=== PATIENT | male | born 1935 | race Caucasian/White ===

== ENCOUNTER 2016-11-30 18:54 | Inpatient (IN) | payer MEDICARE ==
[2016-11-30 18:54] VITALS: BMI 19.6
[2016-11-30] MEDS ORDERED: Sodium Chloride 0.9% 500 ML IV STA (19:06)
[2016-11-30 20:01] LABS: BASO % 0.5 % (0.0-2.0); EOS # 0.4 K/uL (0.0-0.7); EOS % 5.9 % (0.0-4.0); HEMATOCRIT 32.1 % (35.0-51.0); LYMPH # 0.7 K/uL (1.0-4.3); LYMPH % 8.7 % (20.0-40.0); MEAN CELL VOLUME 81.8 fl (80.0-94.0); MEAN CORPUSCULAR HEMOGLOBIN 26.2 pg (27.0-31.0); MEAN PLATELET VOLUME 8.2 fl (7.2-11.7); MONO % 13.2 % (0.0-10.0); NEUT # 5.4 K/uL (1.8-7.0); NEUT % 71.7 % (50.0-75.0); PLATELET COUNT 259 K/uL (130-400); RED CELL DISTRIBUTION WIDTH 17.1 % (11.5-14.5); WHITE BLOOD COUNT 7.5 K/uL (4.8-10.8)
[2016-11-30 20:13] LABS: ALB/GLOB RATIO 1.1 (1.0-2.1); ALKALINE PHOSPHATASE 875 U/L (38-126); ALT/SGPT 243 U/L (21-72); AST/SGOT 371 U/L (17-59); BILIRUBIN,TOTAL 0.9 mg/dl (0.2-1.3); BLOOD UREA NITROGEN 14 mg/dl (9-20); CALCIUM 8.8 mg/dL (8.4-10.2); CARBON DIOXIDE 28 mmol/L (22-30); CHLORIDE 97 mmol/L (98-107); GFR AFRICAN-AMERICAN > 60; GLUCOSE,RANDOM 199 mg/dL (75-110); MAGNESIUM 1.2 MG/DL (1.6-2.3); PHOSPHOROUS 2.8 mg/dl (2.5-4.5); POTASSIUM 4.4 MMOL/L (3.6-5.0); SODIUM 138 mmol/l (132-148); TOTAL PROTEIN 6.9 G/DL (6.3-8.2)
[2016-11-30 20:26] LABS: EOSINOPHIL 3 % (0-7); NEUTROPHIL 78 % (42-75); TOTAL CELLS COUNTED 100
[2016-11-30 20:40] LABS: PARTIAL THROMBOPLASTIN TIME 33.6 SECONDS (23.3-32.5)
--- NOTE | 2016-11-30 20:59 | ED PDOC ---
HPI: Seizure Time Seen by Provider: 11/30/16 19:04 Chief Complaint (Nursing): Weakness/Neurological Deficit Chief Complaint (Provider): Seizure History Per: Patient, Family History/Exam Limitations: no limitations Recent Seizure Activity Began: Just Before Arrival Number Of Seizures: One Length Of Seizures (Duration): Minutes (x2) Quality Of Seizure: Generalized Associated Symptoms: Incontinence Of Urine Post-ictal Period: No Additional Complaint(s): Rosa Finley is an 81 year old male, with a past medical history inclusive of HTN, atrial fibrillation, COPD, type II diabetes and hypothyroidism , who presents to the ED on 11/30/16, via EMS and accompanied by family members , for evaluation s/p apparent generalized seizure that he had experienced just prior to arrival. Per family, patient had been about to eat when he passed out and experienced an episode of diffuse bodily shaking lasting for approximately 2 minutes with (+) urinary incontinence. Patient subsequently woke feeling very weak but was not postictal, after which he was brought to the ED for further evaluation. Denies headache, chest pain or focal neurological weakness. Patient has reportedly been experiencing both subjective fever and nonproductive cough x2 days as well as some pain within his right buttock that radiates down into his right leg. Though he denies rhinorrhea, throat pain, vomiting, diarrhea or outright back pain, he does admit to having been in bed all day today secondary to feelings of overall generalized weakness. Per family , patient had returned 3 days ago via plane from [facility] where he had attended a wedding. PMD: Rene Rodriguez Citrus Fruit Packer: Demetrio Rios Past Medical History Reviewed: Historical Data, Nursing Documentation, Vital Signs Vital Signs: Last Vital Signs Temp 98.1 F 12/04/16 12:26 Pulse 72 12/04/16 12:26 Resp 18 12/04/16 12:26 BP 131/63 12/04/16 12:26 Pulse Ox 100 12/04/16 12:26 - Medical History PMH: Atrial Fibrillation, COPD, Diabetes (type II), HTN, Hypothyroidism, Malignancy Denies: HIV, Chronic Kidney Disease - Surgical History Surgical History: No Surg Hx - Family History Family History: States: Diabetes - Social History Current smoker - smoking cessation education provided: No Alcohol: None Drugs: Denies - Home Medications Home Medications: Ambulatory Orders Medication Instructions Recorded Aspirin [Aspirin Chewable] 81 mg PO DAILY #30 chew 08/12/16 Esomeprazole Magnesium [Nexium] 40 mg PO DAILY #0 capsule.dr 08/12/16 Glipizide [Glipizide ER] 10 mg PO BID #0 tab.er.24 08/12/16 Levothyroxine [Synthroid] 100 mcg PO DAILY #0 tab 08/12/16 Metoprolol Tartrate [Lopressor] 12.5 mg PO Q12 #30 tab 08/12/16 Pregabalin [Lyrica] 100 mg PO TID #0 cap 08/12/16 Metformin HCl [Glucophage] 1 tab PO TID 12/01/16 Repaglinide [Prandin] 1 tab PO BID 12/01/16 - Allergies Allergies/Adverse Reactions: Allergies Allergy/AdvReac Type Severity Reaction Status Date / Time No Known Allergies Allergy Verified 11/30/16 19:00 Review of Systems ROS Statement: Except As Marked, All Systems Reviewed And Found Negative Constitutional: Positive for: Fever, Weakness (generalized) ENT: Negative for: Nose Discharge, Throat Pain Cardiovascular: Negative for: Chest Pain Respiratory: Positive for: Cough. Negative for: Sputum Gastrointestinal: Negative for: Vomiting, Diarrhea Genitourinary Male: Positive for: Incontinence (urinary) Musculoskeletal: Positive for: Other (pain in right buttock w/radiation down right leg). Negative for: Back Pain Neurological: Positive for: Seizures (x2 min of generalized shaking). Negative for: Weakness (no focal deficits), Headache Physical Exam - Reviewed Nursing Documentation Reviewed: Yes Vital Signs Reviewed: Yes - Physical Exam Appears: Positive for: Non-toxic, No Acute Distress (tired appearing) Head Exam: Positive for: ATRAUMATIC, NORMOCEPHALIC Skin: Positive for: Warm (febrile in ED), Dry, Pallor Eye Exam: Positive for: Normal appearance, EOMI, PERRL ENT: Positive for: Other (dry mucous membranes). Negative for: Pharyngeal Erythema, Tonsillar Exudate, Tonsillar Swelling Neck: Positive for: Normal, Painless ROM (no meningismus), Supple Cardiovascular/Chest: Positive for: Regular Rate, Rhythm. Negative for: Murmur Respiratory: Positive for: Rhonchi (occasional, scattered b/l but good air movement). Negative for: Rales, Respiratory Distress Gastrointestinal/Abdominal: Positive for: Normal Exam, Soft. Negative for: Tenderness Back: Positive for: Normal Inspection. Negative for: Vertebral Tenderness Extremity: Positive for: Normal ROM (FROM of right leg), Tenderness (mild, right buttock). Negative for: Deformity, Other ((-) straight leg raise) Neurologic/Psych: Positive for: Alert, aeronautical inspector II-XII (intact), Oriented, Cerebellar Tests (intact). Negative for: Motor/Sensory Deficits, Aphasia, Facial Droop - Laboratory Results Result Diagrams: 12/04/16 12:34 12/04/16 12:34 - ECG O2 Sat by Pulse Oximetry: 99 (RA) Pulse Ox Interpretation: Normal Medical Decision Making Medical Decision Makin:04 Initial Impression: febrile illness, seizure w/o focal deficit Initial Plan: * EKG * CT Head w/o contrast * CXR * ABG * Labs * Magnesium * Phosphorus * Procalcitonin Serum * Troponin I * PTT * PT * Urinalysis * Influenza A B * Blood Culture * Urine Culture * IV NS 500ml at 500mls/hr * Tylenol 975mg PO * Reevaluation 20:26 Labs reviewed, notable for elevated transaminases. Patient is also (+) for Influenza A. Will order US abdomen as well as administration of Tamiflu 75mg PO. 20:54 Patient will be admitted to Telemetry as a full inpatient under the service of his PMD Dr. Rodriguez for both seizure and elevated transaminases. Will contact Family Practice residents. Plan has been discussed with both patient and family who are in agreement. Condition fair. Scribe Attestation: Documented by Bianka Martin, acting as a scribe for Anyi Sandoval MD. Provider Scribe Attestation: All medical record entries made by the Scribe were at my direction and personally dictated by me. I have reviewed the chart and agree that the record accurately reflects my personal performance of the history, physical exam, medical decision making, and the department course for this patient. I have also personally directed, reviewed, and agree with the discharge instructions and disposition. Disposition - Clinical Impression Clinical Impression: Influenza A, Weakness generalized Discussed With Dr.: Bo Cummins Doctor Will See Patient In The: ED Counseled Patient/Family Regarding: Studies Performed, Diagnosis - Disposition Disposition Time: 19:30 Condition: GUARDED - Pt Status Changed To: Hospital Disposition Of: Inpatient - Admit Certification Admit to Inpatient:: After my assessment, the patient will require hospitalization for at least two midnights. This is because of the severity of symptoms shown, intensity of services needed, and/or the medical risk in this patient being treated as an outpatient. - POA Present On Arrival: Falls Or Trauma, Poor Glycemic Control (possible hypoglycemia)
--- NOTE | 2016-11-30 22:03 | CP.PCM.HP ---
History of Present Illness - History of Present Illness History of Present Illness: 81 yo M w/ PMHx of HTN, A fib, COPD, DM II, hypothyroidism, presented to ED via EMS and accompanied by family members, for evaluation of possible generalized seizure that occurred ROPING TENDER. Per family, patient was about to eat when he passed out and experienced an episode of diffuse body shaking lasting for approximately 2 minutes with urinary incontinence. Patient then woke feeling very weak but was not postictal. Patient states he believes it was due to sugar being low and that it was low at home. Patient states he has had multiple episodes like this one in the past and admitted for the same. Denies headache, chest pain or focal neurological weakness. On ROS, patient has been with subjective fever and nonproductive cough x2 days as well as some pain within his right buttock that radiates down into his right leg. Denies nasal congestion , rhinorrhea, sore throat, nausea, vomiting, diarrhea, abdominal pain, changes in urinary/bowel habits. Of note, patient had returned 3 days ago via plane from [place] where he had attended a wedding. PMD: Bradley Cardio: Ike Medications: As per chart Allergies: NKDA SHx: L/S fusion FHx: Non-contributory Social hx: denies smoking, EtOH, drugs ED Course: Vitals notable for tachycardia and febrile Influenza A positive, markedly elevated transaminases CT head, Abdominal US ordered Tamiflu x 1, Tylenol x 1, 500cc Bolus Present on Admission - Present on Admission Any Indicators Present on Admission: No Review of Systems - Review of Systems All systems: reviewed and no additional remarkable complaints except (mentioned in HPI) Past Patient History - Infectious Disease Hx of Infectious Diseases: None - Past Medical History & Family History Past Medical History?: Yes - Past Social History Alcohol: None Drugs: Denies - CARDIAC Hx Atrial Fibrillation: Yes Hx Hypertension: Yes - PULMONARY Hx Chronic Obstructive Pulmonary Disease (COPD): Yes - NEUROLOGICAL Hx Neurological Disorder: No - HEENT Hx HEENT Problems: No - RENAL Hx Chronic Kidney Disease: No - ENDOCRINE/METABOLIC Hx Hypothyroidism: Yes - HEMATOLOGICAL/ONCOLOGICAL Hx Human Immunodeficiency Virus (HIV): No - INTEGUMENTARY Hx Dermatological Problems: No - MUSCULOSKELETAL/RHEUMATOLOGICAL Hx Musculoskeletal Disorders: No - GASTROINTESTINAL Hx Gastrointestinal Disorders: No - GENITOURINARY/GYNECOLOGICAL Hx Genitourinary Disorders: No - PSYCHIATRIC Hx Psychophysiologic Disorder: No Hx Substance Use: No - SURGICAL HISTORY Hx Surgeries: Yes - ANESTHESIA Hx Anesthesia: Yes Hx Anesthesia Reactions: No Meds Allergies/Adverse Reactions: Allergies Allergy/AdvReac Type Severity Reaction Status Date / Time No Known Allergies Allergy Verified 11/30/16 19:00 Physical Exam - Constitutional Appears: Well, Non-toxic, No Acute Distress - Head Exam Head Exam: ATRAUMATIC, NORMAL INSPECTION, NORMOCEPHALIC - Eye Exam Eye Exam: EOMI, Normal appearance - ENT Exam ENT Exam: Mucous Membranes Dry - Neck Exam Neck exam: Positive for: Normal Inspection - Respiratory Exam Respiratory Exam: Clear to Auscultation Bilateral, NORMAL BREATHING PATTERN. absent: Decreased Breath Sounds, Rhonchi, Wheezes - Cardiovascular Exam Cardiovascular Exam: REGULAR RHYTHM, RRR, +S1, +S2 - GI/Abdominal Exam GI & Abdominal Exam: Normal Bowel Sounds, Soft. absent: Distended, Firm, Guarding, Mass, Organomegaly, Rebound, Tenderness Additional comments: ELIZONDO'S SIGN NEGATIVE - Extremities Exam Extremities exam: Positive for: full ROM, normal inspection Additional comments: mild tenderness of right buttock - Back Exam Back exam: NORMAL INSPECTION - Neurological Exam Neurological exam: Alert, Oriented x3 - Psychiatric Exam Psychiatric exam: Normal Affect, Normal Mood - Skin Skin Exam: Dry, Intact, Normal Color Results - Vital Signs Recent Vital Signs: Last Vital Signs Temp 98.1 F 11/30/16 20:40 Pulse 86 11/30/16 20:40 Resp 16 11/30/16 20:40 BP 125/78 11/30/16 20:40 Pulse Ox 99 11/30/16 21:34 - Labs Result Diagrams: 11/30/16 19:52 11/30/16 19:52 Assessment & Plan (1) Influenza A Status: Acute (2) Elevated transaminase level Status: Acute (3) Weakness generalized Status: Acute (4) Atrial fibrillation Status: Chronic (5) Diabetes mellitus Status: Chronic (6) Hypertension Status: Chronic (7) Hypothyroid Status: Chronic (8) DVT prophylaxis Status: Acute - Assessment and Plan (Free Text) Assessment: 81 yo M w/ PMHx of HTN, A fib, COPD, DM II, hypothyroidism with syncope vs seizure. Plan: (1) Influenza A - Tested positive, Sepsis criteria met with tachycardia, febrile, and source of infection - Tamiflu 75mg PO BID - IVF @ 100cc/hr - Tylenol PRN fever - Continue to monitor vitals - f/u official CXR read and procalcitonin level (2) Elevated transaminase level - Markedly elevated AST/ALT/Alk Phos - Though patient completely asymptomatic from abdominal pain, nausea, vomiting at this time - Prelim report of US abdomen * Bilateral hydronephrosis. Right sided ureteral stent * Echogenic lesion/structure in the left renal sinus which may be further evaluated with dedicated dynamic contrast-enhanced CT of the abdomen and pelvis. * Gallstones * Biliary ductal dilatation as described. No definite choledocholithiasis - Consider Surgery consult if patient develops symptoms of cholecystitis - Consider obtaining CT w/ contrast of abd/pelvis to further evaluate left renal sinus if symptoms arise, or as outpatient - follow up labs in AM (3) Weakness generalized - Unknown etiology of syncope vs seizure - Patient states glucose was low at home, possibly due to hypoglycemia vs dehydration from influenza - CT Head unremarkable - Consider neurology consult (4) Atrial fibrillation - NSR at this time. (5) Diabetes mellitus - Appears to be stable at this time, no evidence of hyper/hypoglycemia during visit though past charts do show episodes of hypoglycemia - Continue current meds at this time - Accucheck ACHS - Continue to monitor closely, if uncontrolled consider endocrinology consult (6) Hypertension - Controlled stable - Continue home meds (7) Hypothyroid - Continue home meds (8) DVT prophylaxis - Lovenox 40mg SC daily
[2016-12-01] MEDS: Sodium Chloride 0.9% 1,000 ML IV SCH ×3 (02:43→16:25)
[2016-12-01 04:49] LABS: RBC URINE 4 /hpf (0-3); URINE BILIRUBIN NEGATIVE (NEGATIVE); URINE BLOOD NEGATIVE (NEGATIVE); URINE COLOR STRAW (YELLOW); URINE GLUCOSE (UA) NEG (Normal); URINE KETONE NEGATIVE (NEGATIVE); URINE LEUKOCYTE ESTERASE NEG Leu/uL (Negative); URINE PROTEIN NEGATIVE (NEGATIVE); URINE UROBILINOGEN 0.2-1.0 mg/dL (0.2-1.0); WBC URINE < 1 /hpf (0-5)
[2016-12-01 07:41] LABS: ALB/GLOB RATIO 1.1 (1.0-2.1); ALKALINE PHOSPHATASE 819 U/L (38-126); ALT/SGPT 258 U/L (21-72); AST/SGOT 282 U/L (17-59); BILIRUBIN,TOTAL 0.6 mg/dl (0.2-1.3); BLOOD UREA NITROGEN 11 mg/dl (9-20); CALCIUM 8.8 mg/dL (8.4-10.2); CARBON DIOXIDE 29 mmol/L (22-30); CHLORIDE 104 mmol/L (98-107); GFR AFRICAN-AMERICAN > 60; GLUCOSE,RANDOM 150 mg/dL (75-110); POTASSIUM 4.6 MMOL/L (3.6-5.0); SODIUM 146 mmol/l (132-148); TOTAL PROTEIN 6.8 G/DL (6.3-8.2)
[2016-12-01 07:42] LABS: LIPASE 2920 U/L (23-300)
--- NOTE | 2016-12-01 08:15 | CT ---
PROCEDURE: CT HEAD WITHOUT CONTRAST. HISTORY: DIZZINESS HEADACHE COMPARISON: None available. TECHNIQUE: Axial computed tomography images were obtained through the head/brain without intravenous contrast. Radiation dose: Total exam DLP = mGy-cm. FINDINGS: HEMORRHAGE: No intracranial hemorrhage. BRAIN: No mass effect or edema. No atrophy or chronic microvascular ischemic changes. VENTRICLES: Unremarkable. No hydrocephalus. CALVARIUM: Unremarkable. PARANASAL SINUSES: Unremarkable as visualized. No significant inflammatory changes. MASTOID AIR CELLS: Unremarkable as visualized. No inflammatory changes. OTHER FINDINGS: None. IMPRESSION: Normal CT of the Head.
[2016-12-01 08:35] LABS: BASO % 0.5 % (0.0-2.0); EOS # 0.3 K/uL (0.0-0.7); EOS % 3.9 % (0.0-4.0); LYMPH # 2.2 K/uL (1.0-4.3); LYMPH % 28.7 % (20.0-40.0); MEAN CELL VOLUME 82.1 fl (80.0-94.0); MEAN CORPUSCULAR HEMOGLOBIN 26.3 pg (27.0-31.0); MEAN CORPUSCULAR HGB CONC 32.1 g/dL (33.0-37.0); MEAN PLATELET VOLUME 8.3 fl (7.2-11.7); MONO # 0.7 K/uL (0.0-0.8); MONO % 9.3 % (0.0-10.0); NEUT # 4.4 K/uL (1.8-7.0); NEUT % 57.6 % (50.0-75.0); RED CELL DISTRIBUTION WIDTH 17.2 % (11.5-14.5); WHITE BLOOD COUNT 7.6 K/uL (4.8-10.8)
--- NOTE | 2016-12-01 09:23 | CP.PCM.PN ---
<Jeannie Morales - Last Filed: 12/01/16 19:12> Subjective - Date & Time of Evaluation Date of Evaluation: 12/01/16 Time of Evaluation: 07:00 - Subjective Subjective: - PAtient seen at bedside resting comfortably . Curently he is feeling better and tolerating PO intake. Denies any chest pain, SOB N/V/D Objective - Vital Signs/Intake and Output Vital Signs (last 24 hours): Temp Pulse Resp BP Pulse Ox 98.4 F 64 16 135/82 96 12/01/16 08:06 12/01/16 08:06 12/01/16 08:06 12/01/16 08:06 12/01/16 08:06 - Medications Medications: Current Medications Aspirin (Aspirin Chewable) 81 mg PO DAILY [facility] Enoxaparin Sodium (Lovenox) 40 mg SC DAILY [facility] PRN Reason: Protocol Glipizide (Glucotrol Xl) 10 mg PO BID [facility] Sodium Chloride (Sodium Chloride 0.9%) 1,000 mls @ 100 mls/hr IV .Q10H [facility] Last Admin: 12/01/16 02:43 Dose: 100 mls/hr Levothyroxine Sodium (Synthroid) 100 mcg PO DAILY@0630 [facility] Metoprolol Tartrate (Lopressor) 12.5 mg PO Q12 [facility] Oseltamivir Phosphate (Tamiflu Cap) 75 mg PO BID [facility] Stop: 12/06/16 09:01 Pantoprazole Sodium (Protonix Ec Tab) 40 mg PO DAILY [facility] Pregabalin (Lyrica) 100 mg PO TID [facility] - Labs Labs: 12/01/16 07:00 12/01/16 06:58 PT 11.5 SECONDS (9.6-11.2) H 11/30/16 19:52 INR 1.11 (0.92-1.08) H 11/30/16 19:52 APTT 33.6 SECONDS (23.3-32.5) H 11/30/16 19:52 - Constitutional Appears: No Acute Distress - Head Exam Head Exam: NORMAL INSPECTION - Eye Exam Eye Exam: Normal appearance - Cardiovascular Exam Cardiovascular Exam: REGULAR RHYTHM, +S1, +S2 - GI/Abdominal Exam GI & Abdominal Exam: Soft, Normal Bowel Sounds. absent: Tenderness Additional comments: murpheys sign negative - Neurological Exam Neurological Exam: Alert, Awake, CN II-XII Intact, Oriented x3 Assessment and Plan - Assessment and Plan (Free Text) Assessment: 81 yo M w/ PMHx of HTN, A fib, COPD, DM II, hypothyroidism with syncope vs seizure. Plan: (1) Influenza A - Tested positive, Sepsis criteria met with tachycardia, febrile, and source of infection - Tamiflu 75mg PO BID - IVF @ 100cc/hr - Tylenol PRN fever - Continue to monitor vitals - Infectious Disease consulted - Procalcitonin wnl - Cxr:WNL (2) Elevated transaminase level - Markedly elevated AST/ALT/Alk Phos - Though patient completely asymptomatic from abdominal pain, nausea, vomiting at this time - Prelim report of US abdomen * Bilateral hydronephrosis. Right sided ureteral stent * Echogenic lesion/structure in the left renal sinus which may be further evaluated with dedicated dynamic contrast-enhanced CT of the abdomen and pelvis. * Gallstones * Biliary ductal dilatation as described. No definite choledocholithiasis - Consider obtaining CT w/ contrast of abd/pelvis to further evaluate left renal sinus if symptoms arise, or as outpatient - GI consult appreciated - Surgery consult appreciated - Lipase: 2920 - Hepatitis panal negative - MRCP: Mildly distended gallbladder contains multiple gallstones and demonstrates diffuse wall thickening.Mild to moderate hydronephrosis. - follow up labs in AM (3) Weakness generalized - Unknown etiology of syncope vs seizure - Patient states glucose was low at home, possibly due to hypoglycemia vs dehydration from influenza - CT Head unremarkable - Neurology consult appreciated (4) Atrial fibrillation - NSR at this time. (5) Diabetes mellitus - Appears to be stable at this time, no evidence of hyper/hypoglycemia during visit though past charts do show episodes of hypoglycemia - Continue current meds at this time - Accucheck ACHS - Continue to monitor closely, if uncontrolled consider endocrinology consult (6) Hypertension - Controlled stable - Continue home meds (7) Hypothyroid - Continue home meds (8) DVT prophylaxis - Lovenox 40mg SC daily <Rene Rodriguez - Last Filed: 12/03/16 07:04> Objective - Vital Signs/Intake and Output Vital Signs (last 24 hours): Temp Pulse Resp BP Pulse Ox 98.1 F 71 19 125/55 L 96 12/03/16 04:52 12/03/16 04:52 12/03/16 04:52 12/03/16 04:52 12/03/16 04:52 - Medications Medications: Current Medications Aspirin (Aspirin Chewable) 81 mg PO DAILY [facility] Last Admin: 12/02/16 10:41 Dose: 81 mg Enoxaparin Sodium (Lovenox) 40 mg SC DAILY [facility] PRN Reason: Protocol Last Admin: 12/02/16 11:01 Dose: 40 mg Glipizide (Glucotrol Xl) 10 mg PO BID [facility] Last Admin: 12/01/16 17:41 Dose: Not Given Insulin Human Regular (Humulin R) 0 units SC ACCU-CHECK [facility] PRN Reason: Protocol Last Admin: 12/03/16 06:34 Dose: Not Given Levothyroxine Sodium (Synthroid) 100 mcg PO DAILY@0630 [facility] Last Admin: 12/03/16 06:29 Dose: 100 mcg Metoprolol Tartrate (Lopressor) 12.5 mg PO Q12 [facility] Last Admin: 12/02/16 21:49 Dose: 12.5 mg Ondansetron HCl (Zofran Inj) 4 mg IVP Q4 PRN PRN Reason: Nausea/Vomiting Oseltamivir Phosphate (Tamiflu Cap) 75 mg PO BID [facility] Stop: 12/06/16 09:01 Last Admin: 12/02/16 17:51 Dose: 75 mg Pantoprazole Sodium (Protonix Ec Tab) 40 mg PO DAILY [facility] Last Admin: 12/02/16 10:41 Dose: 40 mg Pregabalin (Lyrica) 100 mg PO TID [facility] Last Admin: 12/02/16 17:56 Dose: 100 mg Promethazine HCl/Dextromethorphan (Phenergan Dm Syrup) 5 ml PO Q6 PRN PRN Reason: Cough Last Admin: 12/03/16 06:29 Dose: 5 ml - Labs Labs: 12/02/16 07:00 12/02/16 08:10 PT 11.5 SECONDS (9.6-11.2) H 11/30/16 19:52 INR 1.11 (0.92-1.08) H 11/30/16 19:52 APTT 33.6 SECONDS (23.3-32.5) H 11/30/16 19:52 Attending/Attestation - Attestation I have personally seen and examined this patient.: Yes I have fully participated in the care of the patient.: Yes I have reviewed all pertinent clinical information, including history, physical exam and plan: Yes
--- NOTE | 2016-12-01 09:30 | US ---
HISTORY: elevated transaminases and fever COMPARISON: None. TECHNIQUE: Sonographic evaluation of the abdomen. FINDINGS: LIVER: Measures 10.8 cm. Patent portal vein. Portal venous flow: Hepatopetal. Unremarkeable echogenicity of the liver parenchyma. No mass. No intrahepatic bile duct dilatation. GALLBLADDER: Cholelithiasis. Negative study for gallbladder wall thickening, pericholecystic fluid, sonographic Martinez's sign. COMMON BILE DUCT: Measures 11.0 mm. No stones. No dilatation. PANCREAS: Unremarkable as visualized. No mass. No ductal dilatation. RIGHT KIDNEY: Measures 3.6 x 7.4cm. Renal cortical atrophy identified. Incomplete visualization of stent catheter right collecting system. LEFT KIDNEY: Measures 4.6 x 9.4cm. Normal echogenicity. No calculus, mass, or hydronephrosis. SPLEEN: Normal in size and contour. No mass. AORTA: No aneurysmal dilatation. IVC: Unremarkable. OTHER FINDINGS: None. IMPRESSION: Cholelithiasis. Negative study for gallbladder wall thickening, pericholecystic fluid, sonographic Martinez's sign. Additional benign and/or incidental findings described above.
--- NOTE | 2016-12-01 09:49 | CP.PCM.PN ---
Objective - Vital Signs/Intake and Output Vital Signs (last 24 hours): Temp Pulse Resp BP Pulse Ox 98.4 F 64 16 135/82 96 12/01/16 08:06 12/01/16 08:06 12/01/16 08:06 12/01/16 08:06 12/01/16 08:06 - Medications Medications: Current Medications Aspirin (Aspirin Chewable) 81 mg PO DAILY [facility] Enoxaparin Sodium (Lovenox) 40 mg SC DAILY [facility] PRN Reason: Protocol Glipizide (Glucotrol Xl) 10 mg PO BID [facility] Sodium Chloride (Sodium Chloride 0.9%) 1,000 mls @ 100 mls/hr IV .Q10H [facility] Last Admin: 12/01/16 02:43 Dose: 100 mls/hr Levothyroxine Sodium (Synthroid) 100 mcg PO DAILY@0630 [facility] Metoprolol Tartrate (Lopressor) 12.5 mg PO Q12 [facility] Ondansetron HCl (Zofran Inj) 4 mg IVP Q4 PRN PRN Reason: Nausea/Vomiting Oseltamivir Phosphate (Tamiflu Cap) 75 mg PO BID [facility] Stop: 12/06/16 09:01 Pantoprazole Sodium (Protonix Ec Tab) 40 mg PO DAILY [facility] Pregabalin (Lyrica) 100 mg PO TID [facility] - Labs Labs: 12/01/16 07:00 12/01/16 06:58 PT 11.5 SECONDS (9.6-11.2) H 11/30/16 19:52 INR 1.11 (0.92-1.08) H 11/30/16 19:52 APTT 33.6 SECONDS (23.3-32.5) H 11/30/16 19:52
--- NOTE | 2016-12-01 09:49 | CP.PCM.CON ---
History of Present Illness - History of Present Illness History of Present Illness: GENERAL SURGERY CONSULT NOTE FOR DR. GONZALES 81yo M with PMHx of A fib, DM, carcinoid cancer s/p radiation who presented to the ED for evaluation of possible generalized seizure. Patient passed out and had diffuse body shaking for about 2 minutes with urinary incontinence. He was not postictal when he awoke. Patient believes it was due to low blood sugar. Patient has had similar episodes in the past and been worked up at [place]. In the ED, he was found to have elevated LFTs, lipase. An ultrasound was done which showed cholelithiasis and a dilated CBD. Surgery was consulted evaluation of etiology. Patient denies abdominal pain. He denies abdominal pain after eating, denies nausea, vomiting, diarrhea, constipation. He states that he had some LUQ abdominal pain a couple months ago that resolved on its own 2 days ago. He never saw a doctor for those symptoms. He had blood work done on and his LFTs and bilirubin were completely normal at that time. Patient also reports pain to his right ankle, right shoulder, and right buttock area. He sees a pain management doctor for his chronic back pain. He denies SOB or CP. PMHx: HTN, A fib, COPD, DM, hypothyroidism, s/p radiation for carcinoid Surgeries: cataracts, laminectomy, L5/S1 fusion, stent in right kidney Allergies: none Social history: denies etoh, tobacco, or illicit drug use Review of Systems - Review of Systems All systems: reviewed and no additional remarkable complaints except (as per HPI ) Past Patient History - Infectious Disease Hx of Infectious Diseases: None - Past Medical History & Family History Past Medical History?: Yes - Past Social History Alcohol: None Drugs: Denies - CARDIAC Hx Atrial Fibrillation: Yes Hx Hypertension: Yes - PULMONARY Hx Chronic Obstructive Pulmonary Disease (COPD): Yes - NEUROLOGICAL Hx Neurological Disorder: No - HEENT Hx HEENT Problems: No - RENAL Hx Chronic Kidney Disease: No - ENDOCRINE/METABOLIC Hx Hypothyroidism: Yes - HEMATOLOGICAL/ONCOLOGICAL Hx Human Immunodeficiency Virus (HIV): No - INTEGUMENTARY Hx Dermatological Problems: No - MUSCULOSKELETAL/RHEUMATOLOGICAL Hx Musculoskeletal Disorders: No - GASTROINTESTINAL Hx Gastrointestinal Disorders: No - GENITOURINARY/GYNECOLOGICAL Hx Genitourinary Disorders: No - PSYCHIATRIC Hx Psychophysiologic Disorder: No Hx Substance Use: No - SURGICAL HISTORY Hx Surgeries: Yes - ANESTHESIA Hx Anesthesia: Yes Hx Anesthesia Reactions: No Meds Allergies/Adverse Reactions: Allergies Allergy/AdvReac Type Severity Reaction Status Date / Time No Known Allergies Allergy Verified 11/30/16 19:00 - Medications Medications: Current Medications Aspirin (Aspirin Chewable) 81 mg PO DAILY [facility] Enoxaparin Sodium (Lovenox) 40 mg SC DAILY [facility] PRN Reason: Protocol Glipizide (Glucotrol Xl) 10 mg PO BID [facility] Sodium Chloride (Sodium Chloride 0.9%) 1,000 mls @ 100 mls/hr IV .Q10H [facility] Last Admin: 12/01/16 02:43 Dose: 100 mls/hr Levothyroxine Sodium (Synthroid) 100 mcg PO DAILY@0630 [facility] Metoprolol Tartrate (Lopressor) 12.5 mg PO Q12 [facility] Ondansetron HCl (Zofran Inj) 4 mg IVP Q4 PRN PRN Reason: Nausea/Vomiting Oseltamivir Phosphate (Tamiflu Cap) 75 mg PO BID [facility] Stop: 12/06/16 09:01 Pantoprazole Sodium (Protonix Ec Tab) 40 mg PO DAILY [facility] Pregabalin (Lyrica) 100 mg PO TID [facility] Physical Exam - Constitutional Appears: Well, Non-toxic, No Acute Distress - Head Exam Head Exam: ATRAUMATIC, NORMAL INSPECTION - Eye Exam Eye Exam: EOMI, Normal appearance - Respiratory Exam Respiratory Exam: NORMAL BREATHING PATTERN. absent: Respiratory Distress - Cardiovascular Exam Cardiovascular Exam: +S1, +S2 - GI/Abdominal Exam GI & Abdominal Exam: Soft. absent: Distended, Firm, Guarding, Rebound, Rigid, Tenderness Additional comments: Negative murphys sign - Extremities Exam Extremities exam: Positive for: normal inspection. Negative for: calf tenderness - Neurological Exam Neurological exam: Alert, CN II-XII Intact, Oriented x3 - Psychiatric Exam Psychiatric exam: Normal Affect, Normal Mood - Skin Skin Exam: Dry, Normal Color, Warm Results - Vital Signs Recent Vital Signs: Last Vital Signs Temp 98.4 F 12/01/16 08:06 Pulse 64 12/01/16 08:06 Resp 16 12/01/16 08:06 BP 135/82 12/01/16 08:06 Pulse Ox 96 12/01/16 08:06 - Labs Result Diagrams: 12/01/16 07:00 12/01/16 06:58 Labs: Laboratory Results - last 24 hr 12/01/16 12/01/16 12/01/16 02:38 04:26 06:58 WBC RBC Hgb Hct MCV MCH MCHC RDW Plt Count MPV Neut % (Auto) Lymph % (Auto) [place] % (Auto) Eos % (Auto) Baso % (Auto) Neut # Lymph # [place] # Eos # Baso # Sodium 146 Potassium 4.6 Chloride 104 Carbon Dioxide 29 Anion Gap 17 BUN 11 Creatinine 0.7 L Est GFR ( Amer) > 60 Est GFR (Non-Af Amer) > 60 POC Glucose (mg/dL) 208 H Random Glucose 150 H Calcium 8.8 Total Bilirubin 0.6 AST 282 H D ALT 258 H Alkaline Phosphatase 819 H Total Protein 6.8 Albumin 3.5 Globulin 3.3 Albumin/Globulin Ratio 1.1 Lipase 2920 H Urine Color Straw Urine Clarity Clear Urine pH 7.0 Ur Specific [place] 1.005 Urine Protein Negative Urine Glucose (UA) Neg Urine Ketones Negative Urine Blood Negative Urine Nitrate Negative Urine Bilirubin Negative Urine Urobilinogen 0.2-1.0 Ur Leukocyte Esterase Neg Urine RBC (Auto) 4 H Urine Microscopic WBC < 1 12/01/16 07:00 WBC 7.6 RBC 4.02 L Hgb 10.6 L Hct 33.0 L MCV 82.1 MCH 26.3 L MCHC 32.1 L RDW 17.2 H Plt Count 281 MPV 8.3 Neut % (Auto) 57.6 Lymph % (Auto) 28.7 [place] % (Auto) 9.3 Eos % (Auto) 3.9 Baso % (Auto) 0.5 Neut # 4.4 Lymph # 2.2 [place] # 0.7 Eos # 0.3 Baso # 0.0 Sodium Potassium Chloride Carbon Dioxide Anion Gap BUN Creatinine Est GFR ( Amer) Est GFR (Non-Af Amer) POC Glucose (mg/dL) Random Glucose Calcium Total Bilirubin AST ALT Alkaline Phosphatase Total Protein Albumin Globulin Albumin/Globulin Ratio Lipase Urine Color Urine Clarity Urine pH Ur Specific [place] Urine Protein Urine Glucose (UA) Urine Ketones Urine Blood Urine Nitrate Urine Bilirubin Urine Urobilinogen Ur Leukocyte Esterase Urine RBC (Auto) Urine Microscopic WBC Assessment & Plan - Assessment and Plan (Free Text) Assessment: 81yo M with PMHx of A fib, DM, carcinoid cancer s/p radiation who presented with possible generalized seizure and was found to have new onset asymptomatic transaminitis, dilated CBD, elevated lipase, rule out gallstone pancreatitis vs choledocholithiasis, vs pancreatic cancer - Afebrile, VSS - No leukocytosis - Bilirubin WNL - AST 371 on admission, ALT 243 on admission (LFTs were normal in Oct) - Alk phos 875 on admission - Lipase elevated at 2,920 - Influenza + - MRCP ordered - Discussed plan with Dr. Oli Mathis PGY-2
[2016-12-01] MEDS: Levothyroxine 100 MCG TAB PO SCH (10:11)
[2016-12-01] MEDS: GlipiZIDE 10 mg SR Tab PO SCH ×2 (10:12→17:41)
[2016-12-01] MEDS: Pantoprazole 40 mg EC Tab PO SCH (10:14)
[2016-12-01] MEDS: Enoxaparin 40 mg Syringe SC SCH (10:17)
--- NOTE | 2016-12-01 10:24 | RAD ---
HISTORY: Sepsis Patient . Technique: Single view portable semi erect @ 19:35. COMPARISON: 08/10/2016. FINDINGS: LUNGS: No active pulmonary disease. PLEURA: No significant pleural effusion identified, no pneumothorax apparent. CARDIOVASCULAR: No radiographic findings to suggest acute or significant cardiovascular disease. OSSEOUS STRUCTURES: No significant abnormalities. VISUALIZED UPPER ABDOMEN: Normal. OTHER FINDINGS: None. IMPRESSION: No active disease. No significant interval change compared to the prior examination(s).
--- NOTE | 2016-12-01 11:42 | CARD ---
APPROVED REPORT EKG Measurement Heart [id number] <Conclusion> Normal sinus rhythm Nonspecific ST abnormality Abnormal ECG
--- NOTE | 2016-12-01 12:10 | MRI ---
PROCEDURE: Magnetic Resonance Cholangiopancreatography HISTORY: COMPARISON: None available. TECHNIQUE: Multiplanar, multisequence MR images of the abdomen were obtained, including heavily T2 weighted MRCP images of the biliary system. Rotating maximum intensity projection images of the biliary system were generated. FINDINGS: MRCP: The common bile duct is of a normal caliber. No evidence of choledocholithiasis. No intrahepatic biliary ductal dilatation. LIVER: No evidence of acute pathology or suspicious lesions in the liver. GALLBLADDER: Multiple gallstones are seen. There is diffuse gallbladder wall thickening. There is suspicious for trace pericholecystic fluid. The possibility of cholecystitis should be considered. SPLEEN: Unremarkable. PANCREAS: No evidence of acute pathology in the pancreas. The main pancreatic duct is not dilated. ADRENALS: Unremarkable. KIDNEYS: The right kidney is smaller than the left. There is [id number] right hydronephrosis and hydroureter. AORTA: No aneurysm. ASCITES: None. OTHER FINDINGS: None. IMPRESSION: Mildly distended gallbladder contains multiple gallstones and demonstrates diffuse wall thickening. Please correlate clinically for cholecystitis. No evidence of choledocholithiasis. The biliary tree is not dilated. [id number]-[id number] right hydronephrosis. The right kidney is smaller in size than the left. Otherwise no evidence of acute pathology. The study is suboptimal due to patient motion.
--- NOTE | 2016-12-01 12:16 | CP.PCM.CON ---
History of Present Illness - History of Present Illness History of Present Illness: GI Consult: Dr. Warren Pt is an 81M with PMHx of DM, Afib, HTN, hypothyroidism & R kidney cancer s/p radiation who presented to [facility] s/p seizure episode at home. Pt states that he recently returned from a trip to [place] 3 days ago, and has had a cough , fever, and generalized weakness since. In the ER, pt was worked up for his seizure which according to the pt has happened once prior to his episode. He was also found to be Flu + and labs showed elevated AST/ALT & Alk Phos. GI consulted to evaluate. US of the abdomen was obtained and shows GB with gallstones and CBD 11mm. Currently, pt is resting comfortably in bed. He denies any abdominal pain, N/V. States he's feeling better compared to arrival. No other complaints at this time. PMHx: as stated above PSHx: laminectomy, L5/S1 fusion, R kidney stent SocialHx: denies smoking, EtOH, drugs NKDA Review of Systems - Review of Systems All systems: reviewed and no additional remarkable complaints except (as per HPI ) Past Patient History - Infectious Disease Hx of Infectious Diseases: None - Past Medical History & Family History Past Medical History?: Yes - Past Social History Alcohol: None Drugs: Denies - CARDIAC Hx Atrial Fibrillation: Yes Hx Hypertension: Yes - PULMONARY Hx Chronic Obstructive Pulmonary Disease (COPD): Yes - NEUROLOGICAL Hx Neurological Disorder: No - HEENT Hx HEENT Problems: No - RENAL Hx Chronic Kidney Disease: No - ENDOCRINE/METABOLIC Hx Hypothyroidism: Yes - HEMATOLOGICAL/ONCOLOGICAL Hx Human Immunodeficiency Virus (HIV): No - INTEGUMENTARY Hx Dermatological Problems: No - MUSCULOSKELETAL/RHEUMATOLOGICAL Hx Musculoskeletal Disorders: No - GASTROINTESTINAL Hx Gastrointestinal Disorders: No - GENITOURINARY/GYNECOLOGICAL Hx Genitourinary Disorders: No - PSYCHIATRIC Hx Psychophysiologic Disorder: No Hx Substance Use: No - SURGICAL HISTORY Hx Surgeries: Yes - ANESTHESIA Hx Anesthesia: Yes Hx Anesthesia Reactions: No Meds Allergies/Adverse Reactions: Allergies Allergy/AdvReac Type Severity Reaction Status Date / Time No Known Allergies Allergy Verified 11/30/16 19:00 - Medications Medications: Current Medications Aspirin (Aspirin Chewable) 81 mg PO DAILY [facility] Last Admin: 12/01/16 10:12 Dose: 81 mg Enoxaparin Sodium (Lovenox) 40 mg SC DAILY [facility] PRN Reason: Protocol Last Admin: 12/01/16 10:17 Dose: 40 mg Glipizide (Glucotrol Xl) 10 mg PO BID [facility] Last Admin: 12/01/16 10:12 Dose: 10 mg Sodium Chloride (Sodium Chloride 0.9%) 1,000 mls @ 100 mls/hr IV .Q10H [facility] Last Admin: 12/01/16 02:43 Dose: 100 mls/hr Levothyroxine Sodium (Synthroid) 100 mcg PO DAILY@0630 [facility] Last Admin: 12/01/16 10:11 Dose: 100 mcg Metoprolol Tartrate (Lopressor) 12.5 mg PO Q12 [facility] Last Admin: 12/01/16 10:15 Dose: 12.5 mg Ondansetron HCl (Zofran Inj) 4 mg IVP Q4 PRN PRN Reason: Nausea/Vomiting Oseltamivir Phosphate (Tamiflu Cap) 75 mg PO BID [facility] Stop: 12/06/16 09:01 Last Admin: 12/01/16 10:15 Dose: 75 mg Pantoprazole Sodium (Protonix Ec Tab) 40 mg PO DAILY [facility] Last Admin: 12/01/16 10:14 Dose: 40 mg Pregabalin (Lyrica) 100 mg PO TID [facility] Last Admin: 12/01/16 11:55 Dose: 100 mg Physical Exam - Constitutional Appears: Well, No Acute Distress - Eye Exam Eye Exam: Normal appearance - ENT Exam ENT Exam: Mucous Membranes Moist - Respiratory Exam Respiratory Exam: NORMAL BREATHING PATTERN - Cardiovascular Exam Cardiovascular Exam: RRR - GI/Abdominal Exam GI & Abdominal Exam: Soft. absent: Distended, Guarding, Rebound, Tenderness - Extremities Exam Extremities exam: Negative for: tenderness - Neurological Exam Neurological exam: Alert, Oriented x3 - Skin Skin Exam: Dry, Intact Results - Vital Signs Recent Vital Signs: Last Vital Signs Temp 98.4 F 12/01/16 08:06 Pulse 64 12/01/16 08:06 Resp 16 12/01/16 08:06 BP 135/82 12/01/16 08:06 Pulse Ox 96 12/01/16 08:06 - Labs Result Diagrams: 12/01/16 07:00 12/01/16 06:58 Labs: Laboratory Results - last 24 hr 12/01/16 12/01/16 12/01/16 02:38 04:26 06:58 WBC RBC Hgb Hct MCV MCH MCHC RDW Plt Count MPV Neut % (Auto) Lymph % (Auto) [place] % (Auto) Eos % (Auto) Baso % (Auto) Neut # Lymph # [place] # Eos # Baso # Sodium 146 Potassium 4.6 Chloride 104 Carbon Dioxide 29 Anion Gap 17 BUN 11 Creatinine 0.7 L Est GFR ( Amer) > 60 Est GFR (Non-Af Amer) > 60 POC Glucose (mg/dL) 208 H Random Glucose 150 H Calcium 8.8 Total Bilirubin 0.6 AST 282 H D ALT 258 H Alkaline Phosphatase 819 H Total Protein 6.8 Albumin 3.5 Globulin 3.3 Albumin/Globulin Ratio 1.1 Lipase 2920 H Urine Color Straw Urine Clarity Clear Urine pH 7.0 Ur Specific [place] 1.005 Urine Protein Negative Urine Glucose (UA) Neg Urine Ketones Negative Urine Blood Negative Urine Nitrate Negative Urine Bilirubin Negative Urine Urobilinogen 0.2-1.0 Ur Leukocyte Esterase Neg Urine RBC (Auto) 4 H Urine Microscopic WBC < 1 12/01/16 07:00 WBC 7.6 RBC 4.02 L Hgb 10.6 L Hct 33.0 L MCV 82.1 MCH 26.3 L MCHC 32.1 L RDW 17.2 H Plt Count 281 MPV 8.3 Neut % (Auto) 57.6 Lymph % (Auto) 28.7 [place] % (Auto) 9.3 Eos % (Auto) 3.9 Baso % (Auto) 0.5 Neut # 4.4 Lymph # 2.2 [place] # 0.7 Eos # 0.3 Baso # 0.0 Sodium Potassium Chloride Carbon Dioxide Anion Gap BUN Creatinine Est GFR ( Amer) Est GFR (Non-Af Amer) POC Glucose (mg/dL) Random Glucose Calcium Total Bilirubin AST ALT Alkaline Phosphatase Total Protein Albumin Globulin Albumin/Globulin Ratio Lipase Urine Color Urine Clarity Urine pH Ur Specific [place] Urine Protein Urine Glucose (UA) Urine Ketones Urine Blood Urine Nitrate Urine Bilirubin Urine Urobilinogen Ur Leukocyte Esterase Urine RBC (Auto) Urine Microscopic WBC - Imaging and Cardiology US - abdomen Status: Image reviewed by me, Report reviewed by me Assessment & Plan - Assessment and Plan (Free Text) Assessment: 81M with Influenza and likely gallstone pancreatitis Plan: - dilated CBD, elevated LFTs and lipase may all be result of a passed stone in light of negative MRCP - monitor LFTs; will order Hep Panel - monitor lipase - d/w Dr. Briana Aden, PGY-2
[2016-12-01] MEDS: Insulin Regular 100 units/ml SC SCH ×2 (13:10→23:32)
[2016-12-01] MEDS ORDERED: Insulin Regular 100 units/ml ONE (13:12)
--- NOTE | 2016-12-01 13:57 | CON ---
DATE: 12/01/2016 CHIEF COMPLAINT: Syncope. HISTORY OF PRESENTING ILLNESS: An 81-year-old man with past medical history of hypertension, atrial fibrillation, COPD, type 2 diabetes mellitus, hypothyroidism who is coming by family members because of questionable shaking movements while he passed out. Apparently, the patient was about to eat when he passed out and experienced an episode of diffuse body shaking lasting a few seconds to minutes wi th some urinary incontinence. He denies any seizures or any history of trauma in the past. Denies a ny history of meningitis or any febrile seizures. He was not postictal. He says his blood sugars ru n lower in the morning and higher at night. He has been trying to manage his blood sugars as best as he could. He said he has had multiple similar episodes in the past like this. He has been having s ubjective fever, nonproductive cough and generalized weakness. On his labs, his initial blood sugar when he came in was 208. He has elevated AST, ALT and alkaline phosphatase and he is being managed f or influenza as well as new onset asymptomatic transaminitis and dilated gallbladder duct with elevat ed lipase, to rule out any form of pancreas involvement. His CT head showed no acute intracranial ab normalities. Currently, he is moving all extremities with no difficulties. No paresthesias of the e xtremities at this time. PAST MEDICAL HISTORY: History of AFib, hypertension, COPD, type 2 diabetes mellitus, hypothyroidism. CURRENT MEDICATIONS: Reviewed via nurse's reconciliation sheet. REVIEW OF SYSTEM: A 14-point negative except for in the HPI. ALLERGIES: No known drug allergies. FAMILY HISTORY: Noncontributory. SOCIAL HISTORY: No illicit drug use, smoking, or ETOH abuse. PHYSICAL EXAMINATION: VITAL SIGNS: Temperature 98.4, pulse rate 64, blood pressure 135/82, respiratory rate of 16, oxygen saturation 96% via room air. GENERAL: The patient is sitting up in bed, no acute distress. HEENT: Atraumatic, normocephalic. PERRLA. Extraocular muscles intact. NECK: Supple, no JVD, no adenopathy noted. LUNGS: Clear to auscultation. No adventitious sounds. HEART: S1, S2, normal rate and rhythm. No murmurs, rubs, or gallops. ABDOMEN: Soft, nontender, nondistended. Bowel sounds are present. EXTREMITIES: No clubbing, no cyanosis. Peripheral pulses 2+ felt bilaterally. NEUROLOGIC: The patient is alert, oriented to person, place, month and year. Speech is fluent, with out any errors. Cranial nerves II-XII are intact. MOTOR: Moves all extremities equally. No pronator drift seen. SENSORY: Decreased light touch and pinprick up to the calves bilaterally. Decreased vibration of th e toes. DEEP TENDON REFLEXES: 2+ throughout and 1 at the ankles. COORDINATION: Wyhozv-xu-auis intact. GAIT: Deferred for now. LABORATORIES: Sodium 146, potassium 4.6, chloride of 104, carbon dioxide 29, BUN of 11, creatinine 0 .7, random glucose 150. Elevated transaminases and alkaline phosphatase. His MRCP showed mildly dis tended gallbladder that contains multiple gallstones and demonstrated diffuse wall thickening, no maurilio dence of choledocholithiasis. ASSESSMENT AND PLAN: This is an 81-year-old man with history of hypertension, atrial fibrillation, c hronic obstructive pulmonary disease, type 2 diabetes mellitus, hypothyroidism who had a syncopal eunice nt and had some generalized shaking with urinary incontinence. He has history of running low blood s ugars in the morning, according to the patient as well as his at bedside. Likely his syncopal e vent with generalized shaking is likely a syncopal convulsion rather than a seizure-type event. It i s more related possibly likely to a transient hypoglycemic event. He is positive for influenza and o n his magnetic resonance cholangiopancreatography, he has mildly distended gallbladder that contains multiple gallstones and diffuse wall thickening. At this time, recommend: 1. Hydrate the patient. 2. Monitor his electrolytes and correct accordingly and diabetic education given. Adjust his diabet ic medications so he avoids having hypoglycemia events in the morning. 3. Continue with Tamiflu 75 mg p.o. b.i.d. for his underlying positive influenza. 4. Continue with Lyrica 100 mg p.o. t.i.d. for his underlying neuropathic pain. 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 5. Continue with levothyroxine 100 mcg p.o. daily. 6. Follow up his workup for his underlying positive elevated transaminases and alkaline phosphatase and gallstones on his magnetic resonance cholangiopancreatography. 7. At this time, continue with current present medical management, though an EEG can be done as an o utpatient. He can follow up with me in my office. Thank you for this consult. Chris Felix MD cc: [phone] TT: 12/01/2016 13:56:29 Confirmation # [id number] Dictation # [id number]
--- NOTE | 2016-12-01 19:21 | CP.PCM.PN ---
Subjective - Date & Time of Evaluation Date of Evaluation: 12/01/16 Time of Evaluation: 19:19 - Subjective Subjective: ID NOTE PATIENT AT TESTING AGREE C PRESENT MANAGEMEY WILL SEE TOMORROW Objective - Vital Signs/Intake and Output Vital Signs (last 24 hours): Temp Pulse Resp BP Pulse Ox 99.1 F 66 18 147/73 99 12/01/16 14:32 12/01/16 14:32 12/01/16 14:32 12/01/16 14:32 12/01/16 13:58 - Medications Medications: Current Medications Aspirin (Aspirin Chewable) 81 mg PO DAILY [facility] Last Admin: 12/01/16 10:12 Dose: 81 mg Enoxaparin Sodium (Lovenox) 40 mg SC DAILY [facility] PRN Reason: Protocol Last Admin: 12/01/16 10:17 Dose: 40 mg Glipizide (Glucotrol Xl) 10 mg PO BID [facility] Last Admin: 12/01/16 17:41 Dose: Not Given Sodium Chloride (Sodium Chloride 0.9%) 1,000 mls @ 100 mls/hr IV .Q10H [facility] Stop: 12/02/16 18:01 Insulin Human Regular (Humulin R) 0 units SC ACCU-CHECK [facility] PRN Reason: Protocol Last Admin: 12/01/16 13:10 Dose: 4 units Levothyroxine Sodium (Synthroid) 100 mcg PO DAILY@0630 [facility] Last Admin: 12/01/16 10:11 Dose: 100 mcg Metoprolol Tartrate (Lopressor) 12.5 mg PO Q12 [facility] Last Admin: 12/01/16 10:15 Dose: 12.5 mg Ondansetron HCl (Zofran Inj) 4 mg IVP Q4 PRN PRN Reason: Nausea/Vomiting Oseltamivir Phosphate (Tamiflu Cap) 75 mg PO BID [facility] Stop: 12/06/16 09:01 Last Admin: 12/01/16 16:57 Dose: 75 mg Pantoprazole Sodium (Protonix Ec Tab) 40 mg PO DAILY [facility] Last Admin: 12/01/16 10:14 Dose: 40 mg Pregabalin (Lyrica) 100 mg PO TID [facility] Last Admin: 12/01/16 16:58 Dose: 100 mg - Labs Labs: 12/01/16 07:00 12/01/16 06:58 PT 11.5 SECONDS (9.6-11.2) H 11/30/16 19:52 INR 1.11 (0.92-1.08) H 11/30/16 19:52 APTT 33.6 SECONDS (23.3-32.5) H 11/30/16 19:52
[2016-12-02] MEDS: Sodium Chloride 0.9% 1,000 ML IV SCH ×3 (02:15→17:48)
[2016-12-02] MEDS: Levothyroxine 100 MCG TAB PO SCH (06:52)
[2016-12-02] MEDS ORDERED: Insulin Regular 100 units/ml ONE ×2 (07:21→11:58)
[2016-12-02] MEDS: Insulin Regular 100 units/ml SC SCH ×4 (07:28→23:25)
[2016-12-02 08:58] LABS: BASO % 0.5 % (0.0-2.0); EOS # 0.4 K/uL (0.0-0.7); EOS % 4.8 % (0.0-4.0); HEMATOCRIT 31.4 % (35.0-51.0); LYMPH # 1.6 K/uL (1.0-4.3); LYMPH % 21.5 % (20.0-40.0); MEAN CORPUSCULAR HEMOGLOBIN 26.5 pg (27.0-31.0); MEAN CORPUSCULAR HGB CONC 32.7 g/dL (33.0-37.0); MEAN PLATELET VOLUME 8.4 fl (7.2-11.7); MONO # 0.7 K/uL (0.0-0.8); MONO % 9.3 % (0.0-10.0); NEUT # 4.9 K/uL (1.8-7.0); NEUT % 63.9 % (50.0-75.0); NRBC % 0.1 % (0.0-0.0); RED CELL DISTRIBUTION WIDTH 17.2 % (11.5-14.5); WHITE BLOOD COUNT 7.7 K/uL (4.8-10.8)
--- NOTE | 2016-12-02 09:00 | CP.PCM.PN ---
<Farhana Mathis - Last Filed: 12/02/16 10:19> Subjective - Date & Time of Evaluation Date of Evaluation: 12/02/16 Time of Evaluation: 07:00 - Subjective Subjective: GENERAL SURGERY PROGRESS NOTE FOR DR. FOSTER Patient seen and examined with Dr. Foster at bedside in the ED. He is still in the ER due to being Flu + and awaiting isolation room on Tele. He states that he is doing well, denies CP, SOB, Abd pain, nausea or vomiting. He is tolerating regular diet. Objective - Vital Signs/Intake and Output Vital Signs (last 24 hours): Temp Pulse Resp BP Pulse Ox 97.9 F 88 14 121/74 96 12/02/16 06:00 12/02/16 06:00 12/02/16 06:00 12/02/16 06:00 12/02/16 06:00 - Medications Medications: Current Medications Aspirin (Aspirin Chewable) 81 mg PO DAILY [facility] Last Admin: 12/01/16 10:12 Dose: 81 mg Enoxaparin Sodium (Lovenox) 40 mg SC DAILY [facility] PRN Reason: Protocol Last Admin: 12/01/16 10:17 Dose: 40 mg Glipizide (Glucotrol Xl) 10 mg PO BID [facility] Last Admin: 12/01/16 17:41 Dose: Not Given Sodium Chloride (Sodium Chloride 0.9%) 1,000 mls @ 100 mls/hr IV .Q10H [facility] Stop: 12/02/16 18:01 Last Admin: 12/02/16 05:30 Dose: 100 mls/hr Insulin Human Regular (Humulin R) 0 units SC ACCU-CHECK [facility] PRN Reason: Protocol Last Admin: 12/02/16 07:28 Dose: 2 units Levothyroxine Sodium (Synthroid) 100 mcg PO DAILY@0630 [facility] Last Admin: 12/02/16 06:52 Dose: 100 mcg Metoprolol Tartrate (Lopressor) 12.5 mg PO Q12 [facility] Last Admin: 12/01/16 22:05 Dose: Not Given Ondansetron HCl (Zofran Inj) 4 mg IVP Q4 PRN PRN Reason: Nausea/Vomiting Oseltamivir Phosphate (Tamiflu Cap) 75 mg PO BID [facility] Stop: 12/06/16 09:01 Last Admin: 12/01/16 16:57 Dose: 75 mg Pantoprazole Sodium (Protonix Ec Tab) 40 mg PO DAILY [facility] Last Admin: 12/01/16 10:14 Dose: 40 mg Pregabalin (Lyrica) 100 mg PO TID [facility] Last Admin: 12/01/16 16:58 Dose: 100 mg - Labs Labs: 12/01/16 07:00 12/01/16 06:58 PT 11.5 SECONDS (9.6-11.2) H 11/30/16 19:52 INR 1.11 (0.92-1.08) H 11/30/16 19:52 APTT 33.6 SECONDS (23.3-32.5) H 11/30/16 19:52 - Constitutional Appears: Well, Non-toxic, No Acute Distress - Head Exam Head Exam: ATRAUMATIC, NORMAL INSPECTION - Eye Exam Eye Exam: EOMI, Normal appearance - Respiratory Exam Respiratory Exam: NORMAL BREATHING PATTERN. absent: Respiratory Distress - Cardiovascular Exam Cardiovascular Exam: +S1, +S2 - GI/Abdominal Exam GI & Abdominal Exam: Soft. absent: Distended, Firm, Guarding, Rigid, Tenderness , Rebound - Neurological Exam Neurological Exam: Alert, Awake, Oriented x3 - Psychiatric Exam Psychiatric exam: Normal Affect, Normal Mood - Skin Skin Exam: Dry, Normal Color, Warm Assessment and Plan - Assessment and Plan (Free Text) Assessment: 81yo M with PMHx of A fib, DM, carcinoid cancer s/p radiation who presented with possible generalized seizure and was found to have new onset asymptomatic transaminitis, dilated CBD, elevated lipase, rule out gallstone pancreatitis vs choledocholithiasis, vs pancreatic cancer - Influenza + - Afebrile, VSS - No leukocytosis - Bilirubin WNL - Large decrease in LFTs today compared to yesterday - Lipase normal today at 109, compared with yesterday at 2,920 - Hepatitis panel negative - MRCP showed mildly distended gallbladder, many gallstones, diffuse wall thickening, no choledocholithiasis, biliary tree not dilated, liver & pancreas normal - GI follow up - Will continue to monitor LFTs - Discussed plan with Dr. Kristin Mathis PGY-2 <Scotty Foster - Last Filed: 12/02/16 10:24> Subjective - Date & Time of Evaluation Date of Evaluation: 12/02/16 Time of Evaluation: 10:00 - Subjective Subjective: Patient was seen and examined at the bedside. Agree with resident's note above Objective - Vital Signs/Intake and Output Vital Signs (last 24 hours): Temp Pulse Resp BP Pulse Ox 97.9 F 88 14 121/74 96 12/02/16 06:00 12/02/16 06:00 12/02/16 06:00 12/02/16 06:00 12/02/16 06:00 - Medications Medications: Current Medications Aspirin (Aspirin Chewable) 81 mg PO DAILY [facility] Last Admin: 12/01/16 10:12 Dose: 81 mg Enoxaparin Sodium (Lovenox) 40 mg SC DAILY [facility] PRN Reason: Protocol Last Admin: 12/01/16 10:17 Dose: 40 mg Glipizide (Glucotrol Xl) 10 mg PO BID [facility] Last Admin: 12/01/16 17:41 Dose: Not Given Sodium Chloride (Sodium Chloride 0.9%) 1,000 mls @ 100 mls/hr IV .Q10H [facility] Stop: 12/02/16 18:01 Last Admin: 12/02/16 05:30 Dose: 100 mls/hr Insulin Human Regular (Humulin R) 0 units SC ACCU-CHECK [facility] PRN Reason: Protocol Last Admin: 12/02/16 07:28 Dose: 2 units Levothyroxine Sodium (Synthroid) 100 mcg PO DAILY@0630 [facility] Last Admin: 12/02/16 06:52 Dose: 100 mcg Metoprolol Tartrate (Lopressor) 12.5 mg PO Q12 [facility] Last Admin: 12/01/16 22:05 Dose: Not Given Ondansetron HCl (Zofran Inj) 4 mg IVP Q4 PRN PRN Reason: Nausea/Vomiting Oseltamivir Phosphate (Tamiflu Cap) 75 mg PO BID [facility] Stop: 12/06/16 09:01 Last Admin: 12/01/16 16:57 Dose: 75 mg Pantoprazole Sodium (Protonix Ec Tab) 40 mg PO DAILY [facility] Last Admin: 12/01/16 10:14 Dose: 40 mg Pregabalin (Lyrica) 100 mg PO TID [facility] Last Admin: 12/01/16 16:58 Dose: 100 mg - Labs Labs: 12/02/16 07:00 12/02/16 08:10 PT 11.5 SECONDS (9.6-11.2) H 11/30/16 19:52 INR 1.11 (0.92-1.08) H 11/30/16 19:52 APTT 33.6 SECONDS (23.3-32.5) H 11/30/16 19:52
[2016-12-02 09:27] LABS: ALKALINE PHOSPHATASE 607 U/L (38-126); ALT/SGPT 147 U/L (21-72); AMYLASE 96 U/L (30-110); AST/SGOT 70 U/L (17-59); BILIRUBIN,TOTAL 0.6 mg/dl (0.2-1.3); BLOOD UREA NITROGEN 11 mg/dl (9-20); CALCIUM 8.8 mg/dL (8.4-10.2); CARBON DIOXIDE 30 mmol/L (22-30); CHLORIDE 101 mmol/L (98-107); GFR AFRICAN-AMERICAN > 60; GLUCOSE,RANDOM 145 mg/dL (75-110); LIPASE 109 U/L (23-300); POTASSIUM 4.2 MMOL/L (3.6-5.0); SODIUM 143 mmol/l (132-148); TOTAL PROTEIN 6.6 G/DL (6.3-8.2)
[2016-12-02] MEDS ORDERED: Pantoprazole 40 mg EC Tab PO ONE (10:31)
[2016-12-02] MEDS: Pantoprazole 40 mg EC Tab PO SCH (10:41)
[2016-12-02] MEDS: Enoxaparin 40 mg Syringe SC SCH (11:01)
--- NOTE | 2016-12-02 12:12 | CP.PCM.PN ---
<Jeannie Morales - Last Filed: 12/02/16 16:13> Subjective - Date & Time of Evaluation Date of Evaluation: 12/02/16 Time of Evaluation: 11:56 - Subjective Subjective: - Patient is resting in bed comfortably. States he is feeling well. Denies chest pain, SOB, N/V/D. Pt w/ a facemask on awaiting isolation room on tele. Has been tolerating PO intake. Objective - Vital Signs/Intake and Output Vital Signs (last 24 hours): Temp Pulse Resp BP Pulse Ox 98 F 79 16 128/58 L 99 12/02/16 10:30 12/02/16 10:30 12/02/16 10:30 12/02/16 10:30 12/02/16 10:30 - Medications Medications: Current Medications Aspirin (Aspirin Chewable) 81 mg PO DAILY [facility] Last Admin: 12/02/16 10:41 Dose: 81 mg Enoxaparin Sodium (Lovenox) 40 mg SC DAILY [facility] PRN Reason: Protocol Last Admin: 12/02/16 11:01 Dose: 40 mg Glipizide (Glucotrol Xl) 10 mg PO BID [facility] Last Admin: 12/01/16 17:41 Dose: Not Given Sodium Chloride (Sodium Chloride 0.9%) 1,000 mls @ 100 mls/hr IV .Q10H [facility] Stop: 12/02/16 18:01 Last Admin: 12/02/16 05:30 Dose: 100 mls/hr Insulin Human Regular (Humulin R) 0 units SC ACCU-CHECK [facility] PRN Reason: Protocol Last Admin: 12/02/16 07:28 Dose: 2 units Levothyroxine Sodium (Synthroid) 100 mcg PO DAILY@0630 [facility] Last Admin: 12/02/16 06:52 Dose: 100 mcg Metoprolol Tartrate (Lopressor) 12.5 mg PO Q12 [facility] Last Admin: 12/02/16 10:41 Dose: 12.5 mg Ondansetron HCl (Zofran Inj) 4 mg IVP Q4 PRN PRN Reason: Nausea/Vomiting Oseltamivir Phosphate (Tamiflu Cap) 75 mg PO BID [facility] Stop: 12/06/16 09:01 Last Admin: 12/02/16 10:42 Dose: 75 mg Pantoprazole Sodium (Protonix Ec Tab) 40 mg PO DAILY [facility] Last Admin: 12/02/16 10:41 Dose: 40 mg Pregabalin (Lyrica) 100 mg PO TID [facility] Last Admin: 12/02/16 11:01 Dose: 100 mg - Labs Labs: 12/02/16 07:00 12/02/16 08:10 PT 11.5 SECONDS (9.6-11.2) H 11/30/16 19:52 INR 1.11 (0.92-1.08) H 11/30/16 19:52 APTT 33.6 SECONDS (23.3-32.5) H 11/30/16 19:52 - Constitutional Appears: No Acute Distress - Head Exam Head Exam: ATRAUMATIC, NORMAL INSPECTION, NORMOCEPHALIC - Eye Exam Eye Exam: Normal appearance - Respiratory Exam Respiratory Exam: Clear to Ausculation Bilateral, NORMAL BREATHING PATTERN - Cardiovascular Exam Cardiovascular Exam: REGULAR RHYTHM, +S1, +S2 - GI/Abdominal Exam GI & Abdominal Exam: Soft, Normal Bowel Sounds. absent: Tenderness - Extremities Exam Extremities Exam: Normal Inspection. absent: Tenderness - Neurological Exam Neurological Exam: Alert, Awake, CN II-XII Intact, Oriented x3 Assessment and Plan - Assessment and Plan (Free Text) Assessment: Assessment: 81 yo M w/ PMHx of HTN, A fib, COPD, DM II, hypothyroidism with syncope vs seizure. Plan: (1) Influenza A - Afebrile - Tested positive, Sepsis criteria met with tachycardia, febrile, and source of infection - Tamiflu 75mg PO BID - IVF @ 100cc/hr - Tylenol PRN fever - Continue to monitor vitals - Infectious Disease consulted - Procalcitonin wnl - Cxr:WNL (2) Syncope most likely secondary to Flu vs Hypoglycemic episode - CT unremarkable - Dr. Felix on board: Believes it is syncopal event more then convulsive. - F/U with EEG results (3) Elevated transaminase level (improving) - AST/ALT has trended down from 282/258 to 70/147 - Alk Phos trending down from 819 to 607 - Lipase: trended down to wnl - Hepatitis panal negative - Though patient completely asymptomatic from abdominal pain, nausea, vomiting at this time - US abdomen * Cholelithiasis Negative study for gallbladder wall thickening, pericholecystic fluid, sonographic Martinez's sign. - GI consulted - Surgery consult: Do not recommend surgical intervention at this point - MRCP: Mildly distended gallbladder contains multiple gallstones and demonstrates diffuse wall thickening.Mild to moderate hydronephrosis. - follow up labs in AM (3) Weakness generalized - Unknown etiology of syncope vs seizure - Patient states glucose was low at home, possibly due to hypoglycemia vs dehydration from influenza - CT Head unremarkable - Neurology consult appreciated (4) Atrial fibrillation - NSR at this time. (5) Diabetes mellitus - Appears to be stable at this time, no evidence of hyper/hypoglycemia during visit though past charts do show episodes of hypoglycemia - Continue current meds at this time - Accucheck ACHS - Continue to monitor closely (6) Hypertension - Controlled stable - Continue home meds (7) Hypothyroid - Continue home meds (8) DVT prophylaxis - Lovenox 40mg SC daily <Sree Yuen - Last Filed: 12/03/16 07:16> Objective - Vital Signs/Intake and Output Vital Signs (last 24 hours): Temp Pulse Resp BP Pulse Ox 98.1 F 71 19 125/55 L 96 12/03/16 04:52 12/03/16 04:52 12/03/16 04:52 12/03/16 04:52 12/03/16 04:52 - Medications Medications: Current Medications Aspirin (Aspirin Chewable) 81 mg PO DAILY [facility] Last Admin: 12/02/16 10:41 Dose: 81 mg Enoxaparin Sodium (Lovenox) 40 mg SC DAILY [facility] PRN Reason: Protocol Last Admin: 12/02/16 11:01 Dose: 40 mg Glipizide (Glucotrol Xl) 10 mg PO BID [facility] Last Admin: 12/01/16 17:41 Dose: Not Given Insulin Human Regular (Humulin R) 0 units SC ACCU-CHECK [facility] PRN Reason: Protocol Last Admin: 12/03/16 06:34 Dose: Not Given Levothyroxine Sodium (Synthroid) 100 mcg PO DAILY@0630 [facility] Last Admin: 12/03/16 06:29 Dose: 100 mcg Metoprolol Tartrate (Lopressor) 12.5 mg PO Q12 [facility] Last Admin: 12/02/16 21:49 Dose: 12.5 mg Ondansetron HCl (Zofran Inj) 4 mg IVP Q4 PRN PRN Reason: Nausea/Vomiting Oseltamivir Phosphate (Tamiflu Cap) 75 mg PO BID [facility] Stop: 12/06/16 09:01 Last Admin: 12/02/16 17:51 Dose: 75 mg Pantoprazole Sodium (Protonix Ec Tab) 40 mg PO DAILY [facility] Last Admin: 12/02/16 10:41 Dose: 40 mg Pregabalin (Lyrica) 100 mg PO TID [facility] Last Admin: 12/02/16 17:56 Dose: 100 mg Promethazine HCl/Dextromethorphan (Phenergan Dm Syrup) 5 ml PO Q6 PRN PRN Reason: Cough Last Admin: 12/03/16 06:29 Dose: 5 ml - Labs Labs: 12/02/16 07:00 12/02/16 08:10 PT 11.5 SECONDS (9.6-11.2) H 11/30/16 19:52 INR 1.11 (0.92-1.08) H 11/30/16 19:52 APTT 33.6 SECONDS (23.3-32.5) H 11/30/16 19:52 Attending/Attestation - Attestation I have personally seen and examined this patient.: Yes I have fully participated in the care of the patient.: Yes I have reviewed all pertinent clinical information, including history, physical exam and plan: Yes
[2016-12-02] MEDS: Promethazine DM 6.25 mg-15 mg/5 ml Syrup PO PRN (23:25)
[2016-12-03] MEDS: Promethazine DM 6.25 mg-15 mg/5 ml Syrup PO PRN ×2 (06:29→17:22)
[2016-12-03] MEDS: Levothyroxine 100 MCG TAB PO SCH (06:29)
[2016-12-03] MEDS: Insulin Regular 100 units/ml SC SCH ×4 (06:34→23:00)
--- NOTE | 2016-12-03 07:50 | CP.PCM.PN ---
<Farhana Mathis - Last Filed: 12/03/16 10:27> Subjective - Date & Time of Evaluation Date of Evaluation: 12/03/16 Time of Evaluation: 07:00 - Subjective Subjective: GENERAL SURGERY PROGRESS NOTE FOR DR. FOSTER Patient seen and examined with Dr. Foster at bedside on tele. He states that he is doing well, denies CP, SOB, Abd pain. No more dizziness or seizure episodes. He is tolerating regular diet and denies nausea or vomiting. Objective - Vital Signs/Intake and Output Vital Signs (last 24 hours): Temp Pulse Resp BP Pulse Ox 98.1 F 71 19 125/55 L 96 12/03/16 04:52 12/03/16 04:52 12/03/16 04:52 12/03/16 04:52 12/03/16 04:52 - Medications Medications: Current Medications Aspirin (Aspirin Chewable) 81 mg PO DAILY [facility] Last Admin: 12/02/16 10:41 Dose: 81 mg Enoxaparin Sodium (Lovenox) 40 mg SC DAILY [facility] PRN Reason: Protocol Last Admin: 12/02/16 11:01 Dose: 40 mg Glipizide (Glucotrol Xl) 10 mg PO BID [facility] Last Admin: 12/01/16 17:41 Dose: Not Given Insulin Human Regular (Humulin R) 0 units SC ACCU-CHECK [facility] PRN Reason: Protocol Last Admin: 12/03/16 06:34 Dose: Not Given Levothyroxine Sodium (Synthroid) 100 mcg PO DAILY@0630 [facility] Last Admin: 12/03/16 06:29 Dose: 100 mcg Metoprolol Tartrate (Lopressor) 12.5 mg PO Q12 [facility] Last Admin: 12/02/16 21:49 Dose: 12.5 mg Ondansetron HCl (Zofran Inj) 4 mg IVP Q4 PRN PRN Reason: Nausea/Vomiting Oseltamivir Phosphate (Tamiflu Cap) 75 mg PO BID [facility] Stop: 12/06/16 09:01 Last Admin: 12/02/16 17:51 Dose: 75 mg Pantoprazole Sodium (Protonix Ec Tab) 40 mg PO DAILY [facility] Last Admin: 12/02/16 10:41 Dose: 40 mg Pregabalin (Lyrica) 100 mg PO TID [facility] Last Admin: 12/02/16 17:56 Dose: 100 mg Promethazine HCl/Dextromethorphan (Phenergan Dm Syrup) 5 ml PO Q6 PRN PRN Reason: Cough Last Admin: 12/03/16 06:29 Dose: 5 ml - Labs Labs: 12/02/16 07:00 12/02/16 08:10 PT 11.5 SECONDS (9.6-11.2) H 11/30/16 19:52 INR 1.11 (0.92-1.08) H 11/30/16 19:52 APTT 33.6 SECONDS (23.3-32.5) H 11/30/16 19:52 - Constitutional Appears: Non-toxic, No Acute Distress - Head Exam Head Exam: ATRAUMATIC, NORMAL INSPECTION - Respiratory Exam Respiratory Exam: NORMAL BREATHING PATTERN. absent: Respiratory Distress - Cardiovascular Exam Cardiovascular Exam: +S1, +S2 - GI/Abdominal Exam GI & Abdominal Exam: Soft. absent: Distended, Firm, Guarding, Rigid, Tenderness , Rebound - Neurological Exam Neurological Exam: Alert, Awake, Oriented x3 - Psychiatric Exam Psychiatric exam: Normal Affect, Normal Mood - Skin Skin Exam: Dry, Normal Color, Warm Assessment and Plan - Assessment and Plan (Free Text) Assessment: 81yo M with PMHx of A fib, DM, carcinoid cancer s/p radiation who was found to have new onset asymptomatic transaminitis, dilated CBD, elevated lipase, rule out gallstone pancreatitis vs choledocholithiasis, vs pancreatic cancer - Influenza + - Afebrile, VSS - Hepatitis panel negative - MRCP showed mildly distended gallbladder, many gallstones, diffuse wall thickening, no choledocholithiasis, biliary tree not dilated, liver & pancreas normal - GI follow up - LFTs and Alk phos continue to improve - Patient needs full workup prior to consideration of surgery - Heme Onc consulted, will FU recommendations - Discussed plan with Dr. Kristin Mathis PGY-2 <Scotty Foster - Last Filed: 12/03/16 10:35> Subjective - Date & Time of Evaluation Date of Evaluation: 12/03/16 Time of Evaluation: 10:15 - Subjective Subjective: Patient was seen and examined at the bedside. Agree with resident's note above Objective - Vital Signs/Intake and Output Vital Signs (last 24 hours): Temp Pulse Resp BP Pulse Ox 98.2 F 81 20 116/46 L 99 12/03/16 08:00 12/03/16 09:45 12/03/16 08:00 12/03/16 09:45 12/03/16 10:26 - Medications Medications: Current Medications Albuterol/Ipratropium (Duoneb 3 Mg/0.5 Mg (3 Ml) Ud) 3 ml INH RTID [facility] Aspirin (Aspirin Chewable) 81 mg PO DAILY [facility] Last Admin: 12/03/16 09:43 Dose: 81 mg Enoxaparin Sodium (Lovenox) 40 mg SC DAILY [facility] PRN Reason: Protocol Last Admin: 12/03/16 09:43 Dose: 40 mg Glipizide (Glucotrol Xl) 10 mg PO BID [facility] Last Admin: 12/01/16 17:41 Dose: Not Given Guaifenesin/Dextromethorphan (Mucinex-Dm 600-30 Mg) 1 tab PO TID [facility] Insulin Human Regular (Humulin R) 0 units SC ACCU-CHECK [facility] PRN Reason: Protocol Last Admin: 12/03/16 06:34 Dose: Not Given Levothyroxine Sodium (Synthroid) 100 mcg PO DAILY@0630 [facility] Last Admin: 12/03/16 06:29 Dose: 100 mcg Metoprolol Tartrate (Lopressor) 12.5 mg PO Q12 [facility] Last Admin: 12/03/16 09:45 Dose: Not Given Ondansetron HCl (Zofran Inj) 4 mg IVP Q4 PRN PRN Reason: Nausea/Vomiting Oseltamivir Phosphate (Tamiflu Cap) 75 mg PO BID [facility] Stop: 12/06/16 09:01 Last Admin: 12/03/16 09:44 Dose: 75 mg Pantoprazole Sodium (Protonix Ec Tab) 40 mg PO DAILY [facility] Last Admin: 12/03/16 09:43 Dose: 40 mg Pregabalin (Lyrica) 100 mg PO TID [facility] Last Admin: 12/03/16 09:48 Dose: 100 mg Promethazine HCl/Dextromethorphan (Phenergan Dm Syrup) 5 ml PO Q6 PRN PRN Reason: Cough Last Admin: 12/03/16 06:29 Dose: 5 ml - Labs Labs: 12/02/16 07:00 12/03/16 08:00 PT 11.5 SECONDS (9.6-11.2) H 11/30/16 19:52 INR 1.11 (0.92-1.08) H 11/30/16 19:52 APTT 33.6 SECONDS (23.3-32.5) H 11/30/16 19:52
[2016-12-03 08:27] LABS: ALKALINE PHOSPHATASE 481 U/L (38-126); ALT/SGPT 99 U/L (21-72); AST/SGOT 34 U/L (17-59); BILIRUBIN,TOTAL 0.6 mg/dl (0.2-1.3); BLOOD UREA NITROGEN 11 mg/dl (9-20); CALCIUM 8.7 mg/dL (8.4-10.2); CARBON DIOXIDE 29 mmol/L (22-30); CHLORIDE 102 mmol/L (98-107); GFR AFRICAN-AMERICAN > 60; GLUCOSE,RANDOM 183 mg/dL (75-110); POTASSIUM 5.1 MMOL/L (3.6-5.0); SODIUM 143 mmol/l (132-148); TOTAL PROTEIN 6.5 G/DL (6.3-8.2)
--- NOTE | 2016-12-03 08:32 | CP.PCM.PN ---
<Jeannie Morales - Last Filed: 12/03/16 16:30> Subjective - Date & Time of Evaluation Date of Evaluation: 12/03/16 Time of Evaluation: 07:50 - Subjective Subjective: Pt seen resting in room. States he is feeling well, slept well over night. He still continues to have a productive cough. Has remained afebrile overnight denies chills, nausea, vomiting, diarrhea. Has been tolerating PO intake. Objective - Vital Signs/Intake and Output Vital Signs (last 24 hours): Temp Pulse Resp BP Pulse Ox 98.1 F 71 19 125/55 L 96 12/03/16 04:52 12/03/16 04:52 12/03/16 04:52 12/03/16 04:52 12/03/16 04:52 - Medications Medications: Current Medications Aspirin (Aspirin Chewable) 81 mg PO DAILY [facility] Last Admin: 12/02/16 10:41 Dose: 81 mg Enoxaparin Sodium (Lovenox) 40 mg SC DAILY [facility] PRN Reason: Protocol Last Admin: 12/02/16 11:01 Dose: 40 mg Glipizide (Glucotrol Xl) 10 mg PO BID [facility] Last Admin: 12/01/16 17:41 Dose: Not Given Insulin Human Regular (Humulin R) 0 units SC ACCU-CHECK [facility] PRN Reason: Protocol Last Admin: 12/03/16 06:34 Dose: Not Given Levothyroxine Sodium (Synthroid) 100 mcg PO DAILY@0630 [facility] Last Admin: 12/03/16 06:29 Dose: 100 mcg Metoprolol Tartrate (Lopressor) 12.5 mg PO Q12 [facility] Last Admin: 12/02/16 21:49 Dose: 12.5 mg Ondansetron HCl (Zofran Inj) 4 mg IVP Q4 PRN PRN Reason: Nausea/Vomiting Oseltamivir Phosphate (Tamiflu Cap) 75 mg PO BID [facility] Stop: 12/06/16 09:01 Last Admin: 12/02/16 17:51 Dose: 75 mg Pantoprazole Sodium (Protonix Ec Tab) 40 mg PO DAILY [facility] Last Admin: 12/02/16 10:41 Dose: 40 mg Pregabalin (Lyrica) 100 mg PO TID [facility] Last Admin: 12/02/16 17:56 Dose: 100 mg Promethazine HCl/Dextromethorphan (Phenergan Dm Syrup) 5 ml PO Q6 PRN PRN Reason: Cough Last Admin: 12/03/16 06:29 Dose: 5 ml - Labs Labs: 12/02/16 07:00 12/02/16 08:10 PT 11.5 SECONDS (9.6-11.2) H 11/30/16 19:52 INR 1.11 (0.92-1.08) H 11/30/16 19:52 APTT 33.6 SECONDS (23.3-32.5) H 11/30/16 19:52 - Constitutional Appears: No Acute Distress - Head Exam Head Exam: NORMAL INSPECTION - Eye Exam Eye Exam: Normal appearance - Respiratory Exam Respiratory Exam: Wheezes (wheezing heard b/l) - Cardiovascular Exam Cardiovascular Exam: REGULAR RHYTHM, +S1, +S2 - GI/Abdominal Exam GI & Abdominal Exam: Soft, Normal Bowel Sounds. absent: Tenderness - Extremities Exam Extremities Exam: Normal Inspection. absent: Tenderness - Neurological Exam Neurological Exam: Alert, Awake, CN II-XII Intact, Oriented x3 Assessment and Plan - Assessment and Plan (Free Text) Assessment: Assessment: 81 yo M w/ PMHx of HTN, A fib, COPD, DM II, hypothyroidism with a syncopal episode Plan: (1) Influenza A - Afebrile - Tested positive, Sepsis criteria met with tachycardia, febrile, and source of infection - Tamiflu 75mg PO BID - IVF @ 100cc/hr - Tylenol PRN fever - Continue to monitor vitals - Infectious Disease consulted - Procalcitonin wnl - Cxr:WNL (2) Syncope most likely secondary to Flu vs Hypoglycemic episode - CT unremarkable - Dr. Felix on board: Believes it is syncopal event more then convulsive. - F/U with EEG results (3) Elevated transaminase level (improving): - AST/ALT has trended down to 34/99 - Alk Phos trending down to 481 - Lipase: trended down to wnl - Hepatitis panal negative - Though patient completely asymptomatic from abdominal pain, nausea, vomiting at this time - US abdomen * Cholelithiasis Negative study for gallbladder wall thickening, pericholecystic fluid, sonographic Martinez's sign. - GI consulted appreciated - Surgery consult: Do not recommend surgical intervention at this point - Heme/ Onc: Consulted: F/U w/ oncologist for octreotide in 2 weeks - MRCP: Mildly distended gallbladder contains multiple gallstones and demonstrates diffuse wall thickening.Mild to moderate hydronephrosis. 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 Blackwell (Oncology) on board -Oncology consulted: States to F/U w/ oncologist for octreotide in 2 weeks (4) Atrial fibrillation - NSR at this time. (5) Diabetes mellitus II - Appears to be stable at this time, no evidence of hyper/hypoglycemia during visit though past charts do show episodes of hypoglycemia - Continue current meds at this time - Accucheck ACHS - Continue to monitor closely (6) Hypertension - Controlled stable - Continue home meds (7) Hypothyroid - Continue home meds (8) DVT prophylaxis - Lovenox 40mg SC daily <Rene Rodriguez - Last Filed: 12/08/16 07:02> Objective - Vital Signs/Intake and Output Vital Signs (last 24 hours): Temp Pulse Resp BP Pulse Ox 98.2 F 78 18 125/65 100 12/06/16 12:17 12/06/16 12:17 12/06/16 12:17 12/06/16 12:17 12/06/16 12:17 - Labs Labs: 12/04/16 12:34 12/06/16 06:25 PT 11.5 SECONDS (9.6-11.2) H 11/30/16 19:52 INR 1.11 (0.92-1.08) H 11/30/16 19:52 APTT 33.6 SECONDS (23.3-32.5) H 11/30/16 19:52 Attending/Attestation - Attestation I have personally seen and examined this patient.: Yes I have fully participated in the care of the patient.: Yes I have reviewed all pertinent clinical information, including history, physical exam and plan: Yes
--- NOTE | 2016-12-03 09:41 | CP.PCM.CON ---
History of Present Illness - History of Present Illness History of Present Illness: This is a very pleasant 81 yrs old male who was admitted after he had a grandmal seizure. He has h/o DM and according yto him has had similar problems when he is hypoglycemic..He4 has not had any seizures since admission, and he was not post ictal. He Also had a sore throat, and cough but no fever,chills or chest pain. He c/o some sciatic pain right lower extremity. He has a past h/o carcinoid tumor of the right pelvis. He was treated with RT, no surgery, and now gets a injection of octreotide once a month. He has no hot flashes, or diarrhea. the MRI of the abdomen did not show any pelvic or liver lesions. He did have hydronephrosis of the right kidney. No evidence of metastasis from the carcinoid tumor. he did have evidence of many gall stones. On admission the traminases were elevated, but are coming down. He was positive for the influenza virus and has been started on tamiflu by the ID specialist. He was never a smoker and does not drink. Past Patient History - Infectious Disease Hx of Infectious Diseases: None - Past Medical History & Family History Past Medical History?: Yes - Past Social History Smoking Status: Never Smoked - CARDIAC Hx Cardiac Disorders: Yes Hx Atrial Fibrillation: Yes Hx Hypertension: Yes - PULMONARY Hx Respiratory Disorders: Yes Hx Chronic Obstructive Pulmonary Disease (COPD): Yes - NEUROLOGICAL Hx Neurological Disorder: No - HEENT Hx HEENT Problems: No - RENAL Hx Chronic Kidney Disease: No - ENDOCRINE/METABOLIC Hx Endocrine Disorders: Yes - HEMATOLOGICAL/ONCOLOGICAL Hx Human Immunodeficiency Virus (HIV): No - INTEGUMENTARY Hx Dermatological Problems: No - MUSCULOSKELETAL/RHEUMATOLOGICAL Hx Falls: No - GASTROINTESTINAL Hx Gastrointestinal Disorders: No - GENITOURINARY/GYNECOLOGICAL Hx Genitourinary Disorders: No - PSYCHIATRIC Hx Substance Use: No - SURGICAL HISTORY Hx Surgeries: Yes - ANESTHESIA Hx Anesthesia: Yes Hx Anesthesia Reactions: No Meds Allergies/Adverse Reactions: Allergies Allergy/AdvReac Type Severity Reaction Status Date / Time No Known Allergies Allergy Verified 11/30/16 19:00 - Medications Medications: Current Medications Albuterol/Ipratropium (Duoneb 3 Mg/0.5 Mg (3 Ml) Ud) 3 ml INH RTID [facility]AN[facility]TE Aspirin (Aspirin Chewable) 81 mg PO DAILY [facility] Last Admin: 12/02/16 10:41 Dose: 81 mg Enoxaparin Sodium (Lovenox) 40 mg SC DAILY [facility] PRN Reason: Protocol Last Admin: 12/02/16 11:01 Dose: 40 mg Glipizide (Glucotrol Xl) 10 mg PO BID [facility] Last Admin: 12/01/16 17:41 Dose: Not Given Guaifenesin/Dextromethorphan (Mucinex-Dm 600-30 Mg) 1 tab PO TID [facility] Insulin Human Regular (Humulin R) 0 units SC ACCU-CHECK [facility] PRN Reason: Protocol Last Admin: 12/03/16 06:34 Dose: Not Given Levothyroxine Sodium (Synthroid) 100 mcg PO DAILY@0630 [facility] Last Admin: 12/03/16 06:29 Dose: 100 mcg Metoprolol Tartrate (Lopressor) 12.5 mg PO Q12 [facility] Last Admin: 12/02/16 21:49 Dose: 12.5 mg Ondansetron HCl (Zofran Inj) 4 mg IVP Q4 PRN PRN Reason: Nausea/Vomiting Oseltamivir Phosphate (Tamiflu Cap) 75 mg PO BID [facility] Stop: 12/06/16 09:01 Last Admin: 12/02/16 17:51 Dose: 75 mg Pantoprazole Sodium (Protonix Ec Tab) 40 mg PO DAILY [facility] Last Admin: 12/02/16 10:41 Dose: 40 mg Pregabalin (Lyrica) 100 mg PO TID [facility] Last Admin: 12/02/16 17:56 Dose: 100 mg Promethazine HCl/Dextromethorphan (Phenergan Dm Syrup) 5 ml PO Q6 PRN PRN Reason: Cough Last Admin: 12/03/16 06:29 Dose: 5 ml Physical Exam - Additional Findings Additional findings: Physical exam; Pt is alert and alert, good historian. He still has some congestion in the Upper respiratory area. Neck; Supple, no adenopathy Chest; Clear, no rales or rhonchi Heart; RSR, no murmur Abd; Soft, no mass, no h/s megaly. Some tenderness in the right upper quadrant. Results - Vital Signs Recent Vital Signs: Last Vital Signs Temp 98.2 F 12/03/16 08:00 Pulse 81 12/03/16 08:00 Resp 20 12/03/16 08:00 BP 116/46 L 12/03/16 08:00 Pulse Ox 94 L 12/03/16 08:00 - Labs Result Diagrams: 12/02/16 07:00 12/03/16 08:00 Labs: Laboratory Results - last 24 hr 12/02/16 12/03/16 12/03/16 22:00 05:13 08:00 Sodium 143 Potassium 5.1 H Chloride 102 Carbon Dioxide 29 Anion Gap 17 BUN 11 Creatinine 0.8 Est GFR ( Amer) > 60 Est GFR (Non-Af Amer) > 60 POC Glucose (mg/dL) 311 H 124 H Random Glucose 183 H Calcium 8.7 Total Bilirubin 0.6 AST 34 ALT 99 H D Alkaline Phosphatase 481 H D Total Protein 6.5 Albumin 3.2 L Globulin 3.3 Albumin/Globulin Ratio 1.0 Assessment & Plan - Assessment and Plan (Free Text) Assessment: IMpression; Carcinoid tumor of the pelvis in remission Influenza infection Diabetes mellitus Atrial fibrillation Right hydronephronephrosis Plan: Plan; Would suggest some guanafesine + resp therapy to help him expectorate. He should follow up with his oncologist for the octreotide in 2 weeks. - Date & Time Date: 12/03/16 Time: 10:05
[2016-12-03] MEDS: Enoxaparin 40 mg Syringe SC SCH (09:43)
[2016-12-03] MEDS: Pantoprazole 40 mg EC Tab PO SCH (09:43)
[2016-12-03 10:48] LABS: HEMATOCRIT 32.5 % (35.0-51.0); MEAN CELL VOLUME 81.2 fl (80.0-94.0); MEAN CORPUSCULAR HGB CONC 32.1 g/dL (33.0-37.0); RED CELL DISTRIBUTION WIDTH 17.4 % (11.5-14.5); WHITE BLOOD COUNT 8.6 K/uL (4.8-10.8)
[2016-12-03] MEDS: Albuterol-Ipratrop 3 mg / 0.5 (3 ml) UD INH SCH ×2 (13:25→19:19)
[2016-12-03] MEDS: guaiFENesin-DM 600-30 mg ER Tab PO SCH ×2 (13:39→17:22)
[2016-12-04] MEDS: Levothyroxine 100 MCG TAB PO SCH (06:16)
[2016-12-04] MEDS: Insulin Regular 100 units/ml SC SCH ×4 (07:01→23:05)
[2016-12-04] MEDS: Albuterol-Ipratrop 3 mg / 0.5 (3 ml) UD INH SCH ×3 (08:40→20:04)
[2016-12-04] MEDS: Pantoprazole 40 mg EC Tab PO SCH (09:30)
[2016-12-04] MEDS: Enoxaparin 40 mg Syringe SC SCH (09:31)
[2016-12-04] MEDS: guaiFENesin-DM 600-30 mg ER Tab PO SCH ×3 (09:31→16:50)
--- NOTE | 2016-12-04 12:44 | CP.PCM.PN ---
<Jcarlos Tom - Last Filed: 12/04/16 12:54> Subjective - Date & Time of Evaluation Date of Evaluation: 12/04/16 Time of Evaluation: 12:40 - Subjective Subjective: pt seen and examined at bedside this morning. pt had an uneventful overnight. No new complaints. oob/ambulating without dizziness. reports improvement in phlegmous cough. minor yellow mucous production but pt reports improvement in quantity. Denies fever/chills, headaches, changes in vision, dizziness, lightheadedness, CP/SOB/[place], N/V/D, urinary symptoms, leg pain, numbness/ tingling. Objective - Vital Signs/Intake and Output Vital Signs (last 24 hours): Temp Pulse Resp BP Pulse Ox 98.1 F 72 18 131/63 100 12/04/16 12:26 12/04/16 12:26 12/04/16 12:26 12/04/16 12:26 12/04/16 12:26 - Medications Medications: Current Medications Albuterol/Ipratropium (Duoneb 3 Mg/0.5 Mg (3 Ml) Ud) 3 ml INH RTID [facility] Last Admin: 12/04/16 08:40 Dose: 3 ml Aspirin (Aspirin Chewable) 81 mg PO DAILY [facility] Last Admin: 12/04/16 09:32 Dose: 81 mg Enoxaparin Sodium (Lovenox) 40 mg SC DAILY [facility] PRN Reason: Protocol Last Admin: 12/04/16 09:31 Dose: 40 mg Glipizide (Glucotrol Xl) 10 mg PO BID [facility] Last Admin: 12/01/16 17:41 Dose: Not Given Guaifenesin/Dextromethorphan (Mucinex-Dm 600-30 Mg) 1 tab PO TID [facility] Last Admin: 12/04/16 12:11 Dose: 1 tab Insulin Human Regular (Humulin R) 0 units SC ACCU-CHECK [facility] PRN Reason: Protocol Last Admin: 12/04/16 12:07 Dose: 6 units Levothyroxine Sodium (Synthroid) 100 mcg PO DAILY@0630 [facility] Last Admin: 12/04/16 06:16 Dose: 100 mcg Metoprolol Tartrate (Lopressor) 12.5 mg PO Q12 [facility] Last Admin: 12/04/16 09:29 Dose: 12.5 mg Ondansetron HCl (Zofran Inj) 4 mg IVP Q4 PRN PRN Reason: Nausea/Vomiting Oseltamivir Phosphate (Tamiflu Cap) 75 mg PO BID [facility] Stop: 12/06/16 09:01 Last Admin: 12/04/16 09:31 Dose: 75 mg Pantoprazole Sodium (Protonix Ec Tab) 40 mg PO DAILY [facility] Last Admin: 12/04/16 09:30 Dose: 40 mg Pregabalin (Lyrica) 100 mg PO TID [facility] Last Admin: 12/04/16 12:10 Dose: 100 mg Promethazine HCl/Dextromethorphan (Phenergan Dm Syrup) 5 ml PO Q6 PRN PRN Reason: Cough Last Admin: 12/03/16 17:22 Dose: 5 ml - Labs Labs: 12/03/16 08:00 12/03/16 08:00 PT 11.5 SECONDS (9.6-11.2) H 11/30/16 19:52 INR 1.11 (0.92-1.08) H 11/30/16 19:52 APTT 33.6 SECONDS (23.3-32.5) H 11/30/16 19:52 - Constitutional Appears: Well, Non-toxic, No Acute Distress - Eye Exam Eye Exam: EOMI Pupil Exam: PERRL - ENT Exam ENT Exam: Mucous Membranes Moist - Neck Exam Neck Exam: Full ROM - Respiratory Exam Respiratory Exam: Clear to Ausculation Bilateral, NORMAL BREATHING PATTERN. absent: Accessory Muscle Use, Rales, Rhonchi, Wheezes, Respiratory Distress - Cardiovascular Exam Cardiovascular Exam: REGULAR RHYTHM, RRR, +S1, +S2. absent: Gallop, JVD, Rubs, Murmur - GI/Abdominal Exam GI & Abdominal Exam: Soft, Normal Bowel Sounds. absent: Distended, Firm, Guarding, Rigid, Tenderness - Extremities Exam Extremities Exam: Normal Inspection, Tenderness. absent: Calf Tenderness, Pedal Edema Additional comments: right ankle tenderness, pt reports this is chronic and w/o worsening symptoms. - Neurological Exam Neurological Exam: Alert, Awake, CN II-XII Intact, Oriented x3 - Psychiatric Exam Psychiatric exam: Normal Affect, Normal Mood - Skin Skin Exam: Dry, Intact, Normal Color, Warm Assessment and Plan - Assessment and Plan (Free Text) Assessment: 81 yo M w/ PMHx of HTN, A fib, COPD, DM II, hypothyroidism with a syncopal episode of unknown etiology. Plan: (1) Influenza A - Afebrile - Tested positive, Sepsis criteria met with tachycardia, febrile, and source of infection - Tamiflu 75mg PO BID - IVF @ 100cc/hr - Duo-Nebs TID for SOB - Tylenol PRN fever - Continue to monitor vitals - Infectious Disease consulted - Procalcitonin wnl - Cxr:WNL (2) Syncope most likely secondary to Flu vs Hypoglycemic episode - CT unremarkable - Dr. Felix on board: Believes it is syncopal event more then convulsive. - F/U with EEG results: pending (3) Elevated transaminase level (improving): - AST/ALT has trending down - Alk Phos trending down - Lipase: wnl - Hepatitis panel: negative - Though patient completely asymptomatic from abdominal pain, nausea, vomiting at this time - US abdomen * Cholelithiasis Negative study for gallbladder wall thickening, pericholecystic fluid, sonographic Martinez's sign. - GI consult appreciated - Surgery consult: Do not recommend surgical intervention at this point - Heme/ Onc: Consulted: F/U w/ oncologist for octreotide in 2 weeks - MRCP: Mildly distended gallbladder contains multiple gallstones and demonstrates diffuse wall thickening.Mild to moderate hydronephrosis. 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 Blackwell (Oncology) on board -Oncology consulted: States to F/U w/ oncologist for octreotide in 2 weeks (4) Atrial fibrillation - NSR at this time. (5) Diabetes mellitus II - Appears to be stable at this time, no evidence of hyper/hypoglycemia during visit though past charts do show episodes of hypoglycemia - Continue current meds at this time - Accucheck ACHS - Continue to monitor closely (6) Hypertension, controlled - Controlled stable - Continue home meds (7) Hypothyroid - Continue home meds (8) DVT prophylaxis - Lovenox 40mg SC daily <Brooke Madrigal - Last Filed: 12/05/16 08:56> Objective - Vital Signs/Intake and Output Vital Signs (last 24 hours): Temp Pulse Resp BP Pulse Ox 97.8 F 104 H 20 116/57 L 100 12/05/16 08:00 12/05/16 08:00 12/05/16 08:00 12/05/16 08:00 12/05/16 08:00 - Medications Medications: Current Medications Albuterol/Ipratropium (Duoneb 3 Mg/0.5 Mg (3 Ml) Ud) 3 ml INH RTID [facility] Last Admin: 12/05/16 07:35 Dose: 3 ml Aspirin (Aspirin Chewable) 81 mg PO DAILY [facility] Last Admin: 12/04/16 09:32 Dose: 81 mg Enoxaparin Sodium (Lovenox) 40 mg SC DAILY [facility] PRN Reason: Protocol Last Admin: 12/04/16 09:31 Dose: 40 mg Glipizide (Glucotrol Xl) 10 mg PO BID [facility] Last Admin: 12/01/16 17:41 Dose: Not Given Guaifenesin/Dextromethorphan (Mucinex-Dm 600-30 Mg) 1 tab PO TID [facility] Last Admin: 12/04/16 16:50 Dose: 1 tab Insulin Human Regular (Humulin R) 0 units SC ACCU-CHECK [facility] PRN Reason: Protocol Last Admin: 12/05/16 06:41 Dose: 4 units Levothyroxine Sodium (Synthroid) 100 mcg PO DAILY@0630 [facility] Last Admin: 12/05/16 06:22 Dose: 100 mcg Metoprolol Tartrate (Lopressor) 12.5 mg PO Q12 [facility] Last Admin: 12/04/16 21:27 Dose: 12.5 mg Ondansetron HCl (Zofran Inj) 4 mg IVP Q4 PRN PRN Reason: Nausea/Vomiting Oseltamivir Phosphate (Tamiflu Cap) 75 mg PO BID [facility] Stop: 12/06/16 09:01 Last Admin: 12/04/16 16:51 Dose: 75 mg Pantoprazole Sodium (Protonix Ec Tab) 40 mg PO DAILY [facility] Last Admin: 12/04/16 09:30 Dose: 40 mg Pregabalin (Lyrica) 100 mg PO TID [facility] Last Admin: 12/04/16 16:54 Dose: 100 mg Promethazine HCl/Dextromethorphan (Phenergan Dm Syrup) 5 ml PO Q6 PRN PRN Reason: Cough Last Admin: 12/04/16 16:50 Dose: 5 ml - Labs Labs: 12/04/16 12:34 12/04/16 12:34 PT 11.5 SECONDS (9.6-11.2) H 11/30/16 19:52 INR 1.11 (0.92-1.08) H 11/30/16 19:52 APTT 33.6 SECONDS (23.3-32.5) H 11/30/16 19:52 - Skin Additional comments: ATTESTATION NOTE ATTENDING NOTE PATIENT SEEN AND EXAMINED. CASE DISCUSSED WITH RESIDENT. AGREE WITH PLAN.
[2016-12-04 12:49] LABS: ALKALINE PHOSPHATASE 590 U/L (38-126); ALT/SGPT 147 U/L (21-72); AST/SGOT 135 U/L (17-59); BILIRUBIN,TOTAL 0.7 mg/dl (0.2-1.3); BLOOD UREA NITROGEN 13 mg/dl (9-20); CALCIUM 8.4 mg/dL (8.4-10.2); CARBON DIOXIDE 28 mmol/L (22-30); CHLORIDE 99 mmol/L (98-107); GFR AFRICAN-AMERICAN > 60; GLUCOSE,RANDOM 266 mg/dL (75-110); HEMATOCRIT 31.7 % (35.0-51.0); MEAN CELL VOLUME 81.6 fl (80.0-94.0); MEAN CORPUSCULAR HEMOGLOBIN 25.8 pg (27.0-31.0); MEAN CORPUSCULAR HGB CONC 31.6 g/dL (33.0-37.0); POTASSIUM 4.7 MMOL/L (3.6-5.0); RED CELL DISTRIBUTION WIDTH 16.7 % (11.5-14.5); SODIUM 138 mmol/l (132-148); TOTAL PROTEIN 6.1 G/DL (6.3-8.2); WHITE BLOOD COUNT 9.5 K/uL (4.8-10.8)
[2016-12-04] MEDS: Promethazine DM 6.25 mg-15 mg/5 ml Syrup PO PRN (16:50)
[2016-12-05] MEDS: Levothyroxine 100 MCG TAB PO SCH (06:22)
[2016-12-05] MEDS: Insulin Regular 100 units/ml SC SCH ×3 (06:41→17:14)
[2016-12-05] MEDS: Albuterol-Ipratrop 3 mg / 0.5 (3 ml) UD INH SCH ×3 (07:35→19:56)
--- NOTE | 2016-12-05 08:38 | CP.PCM.PN ---
<Francis Dacosta - Last Filed: 12/05/16 11:08> Subjective - Date & Time of Evaluation Date of Evaluation: 12/05/16 Time of Evaluation: 08:36 - Subjective Subjective: The patient is a 81 y/o man w/ pmh of HTN, DMII, hypothyroidism, and carcinoid tumor in remission presented to ED w/ possible gran mal seizure. The patient was seen this morning. The are no acute events overnight. The patient just finished receiving duonebs treatment. The patient reports that he feels better and a little stronger. The patient is tolerating PO and afebrile. The patient denies headaches, dizziness, chest pain, dyspnea, abdominal pain, nausea, vomiting, diarrhea, dysuria and fevers. Objective - Vital Signs/Intake and Output Vital Signs (last 24 hours): Temp Pulse Resp BP Pulse Ox 97.8 F 71 18 127/67 98 12/05/16 05:00 12/05/16 05:00 12/05/16 05:00 12/05/16 05:00 12/05/16 05:00 - Medications Medications: Current Medications Albuterol/Ipratropium (Duoneb 3 Mg/0.5 Mg (3 Ml) Ud) 3 ml INH RTID [facility] Last Admin: 12/05/16 07:35 Dose: 3 ml Aspirin (Aspirin Chewable) 81 mg PO DAILY [facility] Last Admin: 12/04/16 09:32 Dose: 81 mg Enoxaparin Sodium (Lovenox) 40 mg SC DAILY [facility] PRN Reason: Protocol Last Admin: 12/04/16 09:31 Dose: 40 mg Glipizide (Glucotrol Xl) 10 mg PO BID [facility] Last Admin: 12/01/16 17:41 Dose: Not Given Guaifenesin/Dextromethorphan (Mucinex-Dm 600-30 Mg) 1 tab PO TID [facility] Last Admin: 12/04/16 16:50 Dose: 1 tab Insulin Human Regular (Humulin R) 0 units SC ACCU-CHECK [facility] PRN Reason: Protocol Last Admin: 12/05/16 06:41 Dose: 4 units Levothyroxine Sodium (Synthroid) 100 mcg PO DAILY@0630 [facility] Last Admin: 12/05/16 06:22 Dose: 100 mcg Metoprolol Tartrate (Lopressor) 12.5 mg PO Q12 [facility] Last Admin: 12/04/16 21:27 Dose: 12.5 mg Ondansetron HCl (Zofran Inj) 4 mg IVP Q4 PRN PRN Reason: Nausea/Vomiting Oseltamivir Phosphate (Tamiflu Cap) 75 mg PO BID [facility] Stop: 12/06/16 09:01 Last Admin: 12/04/16 16:51 Dose: 75 mg Pantoprazole Sodium (Protonix Ec Tab) 40 mg PO DAILY [facility] Last Admin: 12/04/16 09:30 Dose: 40 mg Pregabalin (Lyrica) 100 mg PO TID [facility] Last Admin: 12/04/16 16:54 Dose: 100 mg Promethazine HCl/Dextromethorphan (Phenergan Dm Syrup) 5 ml PO Q6 PRN PRN Reason: Cough Last Admin: 12/04/16 16:50 Dose: 5 ml - Labs Labs: 12/04/16 12:34 12/04/16 12:34 PT 11.5 SECONDS (9.6-11.2) H 11/30/16 19:52 INR 1.11 (0.92-1.08) H 11/30/16 19:52 APTT 33.6 SECONDS (23.3-32.5) H 11/30/16 19:52 - Constitutional Appears: No Acute Distress - Head Exam Head Exam: ATRAUMATIC, NORMOCEPHALIC - Neck Exam Neck Exam: Full ROM - Respiratory Exam Respiratory Exam: Clear to Ausculation Bilateral, NORMAL BREATHING PATTERN. absent: Accessory Muscle Use, Chest Wall Tenderness, Decreased Breath Sounds, Rales, Rhonchi, Wheezes, Respiratory Distress - Cardiovascular Exam Cardiovascular Exam: REGULAR RHYTHM. absent: Tachycardia - GI/Abdominal Exam GI & Abdominal Exam: Soft, Normal Bowel Sounds. absent: Distended, Tenderness, Mass - Extremities Exam Extremities Exam: Full ROM. absent: Calf Tenderness, Pedal Edema - Neurological Exam Neurological Exam: Alert, Awake - Skin Skin Exam: Dry, Intact, Warm. absent: Rash Assessment and Plan - Assessment and Plan (Free Text) Assessment: The patient is a 81 y/o man w/ PMHx of HTN, A fib, COPD, DM II, hypothyroidism with a syncopal episode of unknown etiology Plan: (1) Influenza A - Afebrile - Tested positive, Sepsis criteria met with tachycardia, febrile, and source of infection - Tamiflu 75mg PO BID - Duo-Nebs TID for SOB - Tylenol PRN fever - Continue to monitor vitals - Infectious Disease consulted - Procalcitonin wnl - Cxr:WNL (2) Syncope most likely secondary to Flu vs Hypoglycemic episode - CT unremarkable - Dr. Felix on board: Believes it is syncopal event more then convulsive. - F/U with EEG results: pending (3) Elevated transaminase level (improving): - AST/ALT slightly elevated 12/04 - Alk Phos slightly elevated 12/04 - Lipase: wnl - Hepatitis panel: negative - Though patient completely asymptomatic from abdominal pain, nausea, vomiting at this time - US abdomen * Cholelithiasis Negative study for gallbladder wall thickening, pericholecystic fluid, sonographic Martinez's sign. - GI consult appreciated - Surgery consult: Do not recommend surgical intervention at this point - Heme/ Onc: Consulted: F/U w/ oncologist for octreotide in 2 weeks - MRCP: Mildly distended gallbladder contains multiple gallstones and demonstrates diffuse wall thickening.Mild to moderate hydronephrosis. 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 Blackwell (Oncology) on board - Oncology consulted: States to F/U w/ oncologist for octreotide in 2 weeks (4) Atrial fibrillation - NSR at this time. (5) Diabetes mellitus II - Appears to be stable at this time, no evidence of hyper/hypoglycemia during visit though past charts do show episodes of hypoglycemia - Continue current meds at this time - Accucheck ACHS - Continue to monitor closely (6) Hypertension, controlled - Controlled stable - Continue home meds (7) Hypothyroid - Continue home meds (8) DVT prophylaxis - Lovenox 40mg SC daily (9) constipation - colace 100mg daily ordered <Brooke Madrigal - Last Filed: 12/06/16 08:18> Objective - Vital Signs/Intake and Output Vital Signs (last 24 hours): Temp Pulse Resp BP Pulse Ox 97.9 F 83 18 104/61 94 L 12/06/16 05:00 12/06/16 05:00 12/06/16 05:00 12/06/16 05:00 12/06/16 05:00 - Medications Medications: Current Medications Albuterol/Ipratropium (Duoneb 3 Mg/0.5 Mg (3 Ml) Ud) 3 ml INH RTID [facility] Last Admin: 12/06/16 08:10 Dose: 3 ml Aspirin (Aspirin Chewable) 81 mg PO DAILY [facility] Last Admin: 12/05/16 09:30 Dose: 81 mg Dextrose (Glutose 15) 0 gm PO ONCE PRN; Protocol PRN Reason: Hypoglycemia Protocol Dextrose (Dextrose 50% Inj) 0 ml IV STAT PRN; Protocol PRN Reason: Hyglycemia Protocol Docusate Sodium (Colace) 100 mg PO DAILY [facility] Last Admin: 12/05/16 13:02 Dose: 100 mg Enoxaparin Sodium (Lovenox) 40 mg SC DAILY [facility] PRN Reason: Protocol Last Admin: 12/05/16 09:31 Dose: 40 mg Glipizide (Glucotrol Xl) 10 mg PO BID [facility] Last Admin: 12/01/16 17:41 Dose: Not Given Glucagon (Glucagen Diagnostic Kit) 0 mg IM STAT PRN; Protocol PRN Reason: Hypoglycemia Protocol Guaifenesin/Dextromethorphan (Mucinex-Dm 600-30 Mg) 1 tab PO TID [facility] Last Admin: 12/05/16 17:11 Dose: 1 tab Insulin Human Lispro (Humalog) 0 units SC ACCU-CHECK [facility] PRN Reason: Protocol Last Admin: 12/06/16 06:48 Dose: 2 units Levothyroxine Sodium (Synthroid) 100 mcg PO DAILY@0630 [facility] Last Admin: 12/06/16 05:40 Dose: 100 mcg Metoprolol Tartrate (Lopressor) 12.5 mg PO Q12 [facility] Last Admin: 12/05/16 21:11 Dose: 12.5 mg Ondansetron HCl (Zofran Inj) 4 mg IVP Q4 PRN PRN Reason: Nausea/Vomiting Oseltamivir Phosphate (Tamiflu Cap) 75 mg PO BID [facility] Stop: 12/06/16 09:01 Last Admin: 12/05/16 17:11 Dose: 75 mg Pantoprazole Sodium (Protonix Ec Tab) 40 mg PO DAILY [facility] Last Admin: 12/05/16 09:30 Dose: 40 mg Pregabalin (Lyrica) 100 mg PO TID [facility] Last Admin: 12/05/16 17:11 Dose: 100 mg Promethazine HCl/Dextromethorphan (Phenergan Dm Syrup) 5 ml PO Q6 PRN PRN Reason: Cough Last Admin: 12/04/16 16:50 Dose: 5 ml - Labs Labs: 12/04/16 12:34 12/06/16 06:25 PT 11.5 SECONDS (9.6-11.2) H 11/30/16 19:52 INR 1.11 (0.92-1.08) H 11/30/16 19:52 APTT 33.6 SECONDS (23.3-32.5) H 11/30/16 19:52 - Skin Additional comments: Attestation statement Attending Physician note Patient seen and examined. Case discussed with resident. Agree with plan.
[2016-12-05] MEDS: Pantoprazole 40 mg EC Tab PO SCH (09:30)
[2016-12-05] MEDS: guaiFENesin-DM 600-30 mg ER Tab PO SCH ×3 (09:30→17:11)
[2016-12-05] MEDS: Enoxaparin 40 mg Syringe SC SCH (09:31)
[2016-12-05] MEDS ORDERED: Insulin Lispro (humaLOG) 100 Units/ml Inj SC ONE (18:25)
[2016-12-05] MEDS: Insulin Lispro (humaLOG) 100 Units/ml Inj SC SCH (22:25)
[2016-12-05] MEDS ORDERED: Insulin Lispro (humaLOG) 100 Units/ml Inj SC SCH (23:00)
[2016-12-05] MEDS ORDERED: Glucagon Recombinant 1 mg Inj IM PRN (23:57)
[2016-12-05] MEDS ORDERED: Dextrose 50% SYRINGE Inj (50 ml) IV PRN (23:57)
[2016-12-06] MEDS: Levothyroxine 100 MCG TAB PO SCH (05:40)
[2016-12-06 05:55] VITALS: RESP 18
[2016-12-06] MEDS: Insulin Lispro (humaLOG) 100 Units/ml Inj SC SCH ×2 (06:48→12:15)
[2016-12-06 07:47] LABS: ALB/GLOB RATIO 0.9 (1.0-2.1); ALKALINE PHOSPHATASE 418 U/L (38-126); ALT/SGPT 74 U/L (21-72); AST/SGOT 33 U/L (17-59); BILIRUBIN,TOTAL 0.4 mg/dl (0.2-1.3); BLOOD UREA NITROGEN 10 mg/dl (9-20); CALCIUM 8.5 mg/dL (8.4-10.2); CARBON DIOXIDE 28 mmol/L (22-30); CHLORIDE 101 mmol/L (98-107); GFR AFRICAN-AMERICAN > 60; GLUCOSE,RANDOM 219 mg/dL (75-110); POTASSIUM 4.7 MMOL/L (3.6-5.0); SODIUM 140 mmol/l (132-148)
[2016-12-06] MEDS: Albuterol-Ipratrop 3 mg / 0.5 (3 ml) UD INH SCH ×2 (08:10→13:21)
[2016-12-06 08:44] VITALS: O2SAT 100
[2016-12-06] MEDS: Enoxaparin 40 mg Syringe SC SCH (08:57)
[2016-12-06] MEDS: Pantoprazole 40 mg EC Tab PO SCH (08:57)
[2016-12-06] MEDS: guaiFENesin-DM 600-30 mg ER Tab PO SCH ×2 (08:57→12:18)
--- NOTE | 2016-12-06 09:33 | CP.PCM.DIS ---
<Francis Dacosta - Last Filed: 12/06/16 09:31> Provider - Provider Date of Admission: 11/30/16 20:54 Attending physician: Rene Rodriguez MD Primary care physician: Rene Rodriguez MD Time Spent in preparation of Discharge (in minutes): 30 Diagnosis - Discharge Diagnosis (1) Influenza A Status: Resolved (2) Elevated transaminase level Status: Acute Hospital Course - Lab Results Lab Results: Micro Results 11/30/16 22:35 Blood Blood Culture - Final NO GROWTH AFTER 5 DAYS 11/30/16 22:35 Blood Gram Stain - Final TEST NOT PERFORMED 11/30/16 22:35 Blood Blood Culture - Final NO GROWTH AFTER 5 DAYS 11/30/16 22:35 Blood Gram Stain - Final 12/02/16 10:34 Sputum Gram Stain - Final 12/02/16 10:34 Sputum Sputum Culture - Final NORMAL ORAL UMA 12/01/16 07:50 Urine Urine Culture - Final No Growth (<1,000 CFU/ML) Most Recent Lab Values WBC 9.5 K/uL (4.8-10.8) 12/04/16 12:34 RBC 3.89 Mil/uL (4.40-5.90) L 12/04/16 12:34 Hgb 10.0 g/dL (12.0-18.0) L 12/04/16 12:34 Hct 31.7 % (35.0-51.0) L 12/04/16 12:34 MCV 81.6 fl (80.0-94.0) 12/04/16 12:34 MCH 25.8 pg (27.0-31.0) L 12/04/16 12:34 MCHC 31.6 g/dL (33.0-37.0) L 12/04/16 12:34 RDW 16.7 % (11.5-14.5) H 12/04/16 12:34 Plt Count 301 K/uL (130-400) 12/04/16 12:34 MPV 8.4 fl (7.2-11.7) 12/02/16 07:00 Neut % (Auto) 63.9 % (50.0-75.0) 12/02/16 07:00 Lymph % (Auto) 21.5 % (20.0-40.0) 12/02/16 07:00 Caswell % (Auto) 9.3 % (0.0-10.0) 12/02/16 07:00 Eos % (Auto) 4.8 % (0.0-4.0) H 12/02/16 07:00 Baso % (Auto) 0.5 % (0.0-2.0) 12/02/16 07:00 Neut # 4.9 K/uL (1.8-7.0) 12/02/16 07:00 Lymph # 1.6 K/uL (1.0-4.3) 12/02/16 07:00 Caswell # 0.7 K/uL (0.0-0.8) 12/02/16 07:00 Eos # 0.4 K/uL (0.0-0.7) 12/02/16 07:00 Baso # 0.0 K/uL (0.0-0.2) 12/02/16 07:00 Neutrophils % (Manual) 78 % (42-75) H 11/30/16 19:52 Band Neutrophils % 1 % (0-2) 11/30/16 19:52 Lymphocytes % (Manual) 5 % (20-50) L 11/30/16 19:52 Monocytes % (Manual) 13 % (0-10) H 11/30/16 19:52 Eosinophils % (Manual) 3 % (0-7) 11/30/16 19:52 Platelet Estimate Normal (NORMAL) 11/30/16 19:52 Poikilocytosis (manual Slight 11/30/16 19:52 Anisocytosis (manual) Slight 11/30/16 19:52 PT 11.5 SECONDS (9.6-11.2) H 11/30/16 19:52 INR 1.11 (0.92-1.08) H 11/30/16 19:52 APTT 33.6 SECONDS (23.3-32.5) H 11/30/16 19:52 Sodium 140 mmol/l (132-148) 12/06/16 06:25 Potassium 4.7 MMOL/L (3.6-5.0) 12/06/16 06:25 Chloride 101 mmol/L (98-107) 12/06/16 06:25 Carbon Dioxide 28 mmol/L (22-30) 12/06/16 06:25 Anion Gap 15 (10-20) 12/06/16 06:25 BUN 10 mg/dl (9-20) 12/06/16 06:25 Creatinine 0.7 mg/dL (0.8-1.5) L 12/06/16 06:25 Est GFR ( Amer) > 60 12/06/16 06:25 Est GFR (Non-Af Amer) > 60 12/06/16 06:25 POC Glucose (mg/dL) 234 mg/dL (65-110) H 12/06/16 05:41 Random Glucose 219 mg/dL (75-110) H 12/06/16 06:25 Calcium 8.5 mg/dL (8.4-10.2) 12/06/16 06:25 Phosphorus 2.8 mg/dl (2.5-4.5) 11/30/16 19:52 Magnesium 1.2 MG/DL (1.6-2.3) L 11/30/16 19:52 Total Bilirubin 0.4 mg/dl (0.2-1.3) 12/06/16 06:25 AST 33 U/L (17-59) 12/06/16 06:25 ALT 74 U/L (21-72) H D 12/06/16 06:25 Alkaline Phosphatase 418 U/L (38-126) H D 12/06/16 06:25 Troponin I < 0.0120 ng/mL (0.00-0.120) 11/30/16 19:52 Total Protein 6.0 G/DL (6.3-8.2) L 12/06/16 06:25 Albumin 2.9 g/dL (3.5-5.0) L 12/06/16 06:25 Globulin 3.1 gm/dL (2.2-3.9) 12/06/16 06:25 Albumin/Globulin Ratio 0.9 (1.0-2.1) L 12/06/16 06:25 Amylase 96 U/L (30-110) 12/02/16 08:10 Lipase 109 U/L (23-300) 12/02/16 08:10 Procalcitonin 0.29 NG/ML (0.19-0.49) 11/30/16 19:52 Urine Color Straw (YELLOW) 12/01/16 04:26 Urine Clarity Clear (Clear) 12/01/16 04:26 Urine pH 7.0 (5.0-8.0) 12/01/16 04:26 Ur Specific Cartwright 1.005 (1.003-1.030) 12/01/16 04:26 Urine Protein Negative mg/dL (NEGATIVE) 12/01/16 04:26 Urine Glucose (UA) Neg mg/dL (Normal) 12/01/16 04:26 Urine Ketones Negative mg/dL (NEGATIVE) 12/01/16 04:26 Urine Blood Negative (NEGATIVE) 12/01/16 04:26 Urine Nitrate Negative (NEGATIVE) 12/01/16 04:26 Urine Bilirubin Negative (NEGATIVE) 12/01/16 04:26 Urine Urobilinogen 0.2-1.0 mg/dL (0.2-1.0) 12/01/16 04:26 Ur Leukocyte Esterase Neg Yulisa/uL (Negative) 12/01/16 04:26 Urine RBC (Auto) 4 /hpf (0-3) H 12/01/16 04:26 Urine Microscopic WBC < 1 /hpf (0-5) 12/01/16 04:26 Hepatitis A IgM Ab Negative (NEGATIVE) 12/01/16 07:00 Hep Bs Antigen Negative (NEGATIVE) 12/01/16 07:00 Hep B Core IgM Ab Negative (NEGATIVE) 12/01/16 07:00 Hepatitis C Antibody Negative (NEGATIVE) 12/01/16 07:00 Influenza Typ A,B (EIA) Pos for influenza a (NEGATIVE) H 11/30/16 19:52 - Hospital Course Hospital Course: The patient is a 81 y/o man w/ PMHx of HTN, A fib, COPD, DM II, hypothyroidism with a syncopal episode of unknown etiology. The patient was found to have positive influenza A and elevated transaminases. The patient had a CT of the head that was normal and an abdominal US which showed gallstones but no acute cholecystitis. The patient was seen by surgery and did not require surgical intervention but had an MRCP that showed gallstones with thickening of the gall bladder wall but no stones in the in the bile duct and no acute pathology. The patient was seen by neuro and did not require any acute intervention but recommended possible EEG as an outpatient. The patient was also seen by ID who recommended continuing current management with no other intervention. The patient was seen by heme/onc for regressing carcinoid tumor and recommended follow up with oncologist for octreotide in 2 weeks. The patient has improved each day and the transaminases have trended down since admission. The patient was cleared by physical therapy. The patient is also breathing better and has had no syncopal or near syncopal episodes while admitted. The patient has been seen, examined, and deemed medically fit with no contraindication for discharge home. The patient has been given a script for visiting nurse from [place]. The patient was asked to follow-up with Dr. Rodriguez within the week. - Date & Time of H&P Date of H&P: 11/30/16 Time of H&P: 22:03 Discharge Exam - Head Exam Head Exam: ATRAUMATIC, NORMOCEPHALIC - Eye Exam Eye Exam: EOMI, PERRL - Neck Exam Neck exam: Full Rom - Respiratory Exam Respiratory Exam: Clear to PA & Lateral, NORMAL BREATHING PATTERN. absent: Accessory Muscle Use, Decreased Breath Sounds, Prolonged Expiratory Phase, Rales , Rhonchi, Wheezes, Respiratory Distress, Stridor - Cardiovascular Exam Cardiovascular Exam: REGULAR RHYTHM. absent: Tachycardia - GI/Abdominal Exam GI & Abdominal Exam: Normal Bowel Sounds, Soft. absent: Distended, Tenderness - Extremities Exam Extremities exam: normal inspection - Neurological Exam Neurological exam: Alert, CN II-XII Intact, Oriented x3 Additional comments: slow steady gait - Skin Skin Exam: Dry, Intact, Normal Color Discharge Plan - Follow Up Plan Condition: IMPROVED Disposition: HOME/ ROUTINE Instructions: Influenza (DC), Recurrent Seizures in Adults (DC) Referrals: Rene Rodriguez MD [Primary Care Provider] - Clinical Quality Measures - Date & Time of Discharge Summary Date of Discharge Summary: 12/06/16 Time of Discharge Summary: 09:49 <Rene Rodriguez - Last Filed: 12/08/16 07:05> Provider - Provider Date of Admission: 11/30/16 20:54 Attending physician: Rene Rodriguez MD Primary care physician: Rene Rodriguez MD Hospital Course - Lab Results Lab Results: Micro Results 11/30/16 22:35 Blood Blood Culture - Final NO GROWTH AFTER 5 DAYS 11/30/16 22:35 Blood Gram Stain - Final TEST NOT PERFORMED 11/30/16 22:35 Blood Blood Culture - Final NO GROWTH AFTER 5 DAYS 11/30/16 22:35 Blood Gram Stain - Final 12/02/16 10:34 Sputum Gram Stain - Final 12/02/16 10:34 Sputum Sputum Culture - Final NORMAL ORAL UMA 12/01/16 07:50 Urine Urine Culture - Final No Growth (<1,000 CFU/ML) Most Recent Lab Values WBC 9.5 K/uL (4.8-10.8) 12/04/16 12:34 RBC 3.89 Mil/uL (4.40-5.90) L 12/04/16 12:34 Hgb 10.0 g/dL (12.0-18.0) L 12/04/16 12:34 Hct 31.7 % (35.0-51.0) L 12/04/16 12:34 MCV 81.6 fl (80.0-94.0) 12/04/16 12:34 MCH 25.8 pg (27.0-31.0) L 12/04/16 12:34 MCHC 31.6 g/dL (33.0-37.0) L 12/04/16 12:34 RDW 16.7 % (11.5-14.5) H 12/04/16 12:34 Plt Count 301 K/uL (130-400) 12/04/16 12:34 MPV 8.4 fl (7.2-11.7) 12/02/16 07:00 Neut % (Auto) 63.9 % (50.0-75.0) 12/02/16 07:00 Lymph % (Auto) 21.5 % (20.0-40.0) 12/02/16 07:00 Caswell % (Auto) 9.3 % (0.0-10.0) 12/02/16 07:00 Eos % (Auto) 4.8 % (0.0-4.0) H 12/02/16 07:00 Baso % (Auto) 0.5 % (0.0-2.0) 12/02/16 07:00 Neut # 4.9 K/uL (1.8-7.0) 12/02/16 07:00 Lymph # 1.6 K/uL (1.0-4.3) 12/02/16 07:00 Caswell # 0.7 K/uL (0.0-0.8) 12/02/16 07:00 Eos # 0.4 K/uL (0.0-0.7) 12/02/16 07:00 Baso # 0.0 K/uL (0.0-0.2) 12/02/16 07:00 Neutrophils % (Manual) 78 % (42-75) H 11/30/16 19:52 Band Neutrophils % 1 % (0-2) 11/30/16 19:52 Lymphocytes % (Manual) 5 % (20-50) L 11/30/16 19:52 Monocytes % (Manual) 13 % (0-10) H 11/30/16 19:52 Eosinophils % (Manual) 3 % (0-7) 11/30/16 19:52 Platelet Estimate Normal (NORMAL) 11/30/16 19:52 Poikilocytosis (manual Slight 11/30/16 19:52 Anisocytosis (manual) Slight 11/30/16 19:52 PT 11.5 SECONDS (9.6-11.2) H 11/30/16 19:52 INR 1.11 (0.92-1.08) H 11/30/16 19:52 APTT 33.6 SECONDS (23.3-32.5) H 11/30/16 19:52 Sodium 140 mmol/l (132-148) 12/06/16 06:25 Potassium 4.7 MMOL/L (3.6-5.0) 12/06/16 06:25 Chloride 101 mmol/L (98-107) 12/06/16 06:25 Carbon Dioxide 28 mmol/L (22-30) 12/06/16 06:25 Anion Gap 15 (10-20) 12/06/16 06:25 BUN 10 mg/dl (9-20) 12/06/16 06:25 Creatinine 0.7 mg/dL (0.8-1.5) L 12/06/16 06:25 Est GFR ( Amer) > 60 12/06/16 06:25 Est GFR (Non-Af Amer) > 60 12/06/16 06:25 POC Glucose (mg/dL) 345 mg/dL (65-110) H 12/06/16 11:54 Random Glucose 219 mg/dL (75-110) H 12/06/16 06:25 Calcium 8.5 mg/dL (8.4-10.2) 12/06/16 06:25 Phosphorus 2.8 mg/dl (2.5-4.5) 11/30/16 19:52 Magnesium 1.2 MG/DL (1.6-2.3) L 11/30/16 19:52 Total Bilirubin 0.4 mg/dl (0.2-1.3) 12/06/16 06:25 AST 33 U/L (17-59) 12/06/16 06:25 ALT 74 U/L (21-72) H D 12/06/16 06:25 Alkaline Phosphatase 418 U/L (38-126) H D 12/06/16 06:25 Troponin I < 0.0120 ng/mL (0.00-0.120) 11/30/16 19:52 Total Protein 6.0 G/DL (6.3-8.2) L 12/06/16 06:25 Albumin 2.9 g/dL (3.5-5.0) L 12/06/16 06:25 Globulin 3.1 gm/dL (2.2-3.9) 12/06/16 06:25 Albumin/Globulin Ratio 0.9 (1.0-2.1) L 12/06/16 06:25 Amylase 96 U/L (30-110) 12/02/16 08:10 Lipase 109 U/L (23-300) 12/02/16 08:10 Procalcitonin 0.29 NG/ML (0.19-0.49) 11/30/16 19:52 Urine Color Straw (YELLOW) 12/01/16 04:26 Urine Clarity Clear (Clear) 12/01/16 04:26 Urine pH 7.0 (5.0-8.0) 12/01/16 04:26 Ur Specific Cartwright 1.005 (1.003-1.030) 12/01/16 04:26 Urine Protein Negative mg/dL (NEGATIVE) 12/01/16 04:26 Urine Glucose (UA) Neg mg/dL (Normal) 12/01/16 04:26 Urine Ketones Negative mg/dL (NEGATIVE) 12/01/16 04:26 Urine Blood Negative (NEGATIVE) 12/01/16 04:26 Urine Nitrate Negative (NEGATIVE) 12/01/16 04:26 Urine Bilirubin Negative (NEGATIVE) 12/01/16 04:26 Urine Urobilinogen 0.2-1.0 mg/dL (0.2-1.0) 12/01/16 04:26 Ur Leukocyte Esterase Neg Yulisa/uL (Negative) 12/01/16 04:26 Urine RBC (Auto) 4 /hpf (0-3) H 12/01/16 04:26 Urine Microscopic WBC < 1 /hpf (0-5) 12/01/16 04:26 Hepatitis A IgM Ab Negative (NEGATIVE) 12/01/16 07:00 Hep Bs Antigen Negative (NEGATIVE) 12/01/16 07:00 Hep B Core IgM Ab Negative (NEGATIVE) 12/01/16 07:00 Hepatitis C Antibody Negative (NEGATIVE) 12/01/16 07:00 Influenza Typ A,B (EIA) Pos for influenza a (NEGATIVE) H 11/30/16 19:52 Attending/Attestation - Attestation I have personally seen and examined this patient.: Yes I have fully participated in the care of the patient.: Yes I have reviewed all pertinent clinical information, including history, physical exam and plan: Yes
[2016-12-06 12:17] VITALS: BP 125/65; PULSE 78; TEMP 98.2
== END 2016-12-06 14:30 | disposition home or self-care (01) | DRG 194 ==
LOC: H.ER 18:54 → H.ERHOLD 20:54 → H.TEL 12-02 18:42
PROVIDERS: ADMIT Family Medicine; ATTEND Family Medicine
DX: J10.1 Influenza due to other identified influenza virus with other respiratory manifestations (principal); G40.802 Other epilepsy, not intractable, without status epilepticus; E11.42 Type 2 diabetes mellitus with diabetic polyneuropathy; I48.2 Chronic atrial fibrillation; J44.9 Chronic obstructive pulmonary disease, unspecified; N13.30 Unspecified hydronephrosis; I10 Essential (primary) hypertension; E03.9 Hypothyroidism, unspecified; K59.00 Constipation, unspecified; R32 Unspecified urinary incontinence; R74.0 Nonspecific elevation of levels of transaminase and lactic acid dehydrogenase [LDH]; K80.20 Calculus of gallbladder without cholecystitis without obstruction; Z85.528 Personal history of other malignant neoplasm of kidney

== ENCOUNTER 2017-04-18 06:34 | Emergency (ER) | payer MEDICARE, OTHER ==
--- NOTE | 2017-04-18 06:56 | ED PDOC ---
Syncope/Near Syncope/Dizziness Time Seen by Provider: 04/18/17 06:43 Chief Complaint (Provider): Fall/Syncope History Per: Patient History/Exam Limitations: no limitations Onset/Duration Of Symptoms: Mins (prior to arrival) Current Symptoms Are (Timing): Still Present Additional Complaint(s): Rosa Finley is a 81 year old male with previous medical history of hypertension, diabetes and hypoglycemia, who presents to the emergency department accompanied by , for syncope evaluation and possible stroke associated with left shoulder pain and upper back pain status post episode of fall. Denied any fever, chills, vomiting or recent illness. Per , she gave patient some juice because she thought he "passed out" due to low sugar level. PMD: Rene Rodriguez MD Past Medical History Reviewed: Historical Data, Nursing Documentation, Vital Signs Vital Signs: Last Vital Signs Temp 97.5 F L 04/18/17 06:45 Pulse 75 04/18/17 06:45 Resp 14 04/18/17 06:45 BP 141/61 04/18/17 06:45 Pulse Ox 98 04/18/17 06:45 - Medical History PMH: Atrial Fibrillation, COPD, Diabetes (type II), HTN, Hypothyroidism, Malignancy Denies: HIV, Chronic Kidney Disease - Surgical History Surgical History: No Surg Hx - Family History Family History: States: Diabetes - Social History Current smoker - smoking cessation education provided: No Alcohol: None Drugs: Denies - Home Medications Home Medications: Ambulatory Orders Medication Instructions Recorded Aspirin [Aspirin Chewable] 81 mg PO DAILY #30 chew 08/12/16 Esomeprazole Magnesium [Nexium] 40 mg PO DAILY #0 capsule. 08/12/16 Glipizide [Glipizide ER] 10 mg PO BID #0 tab.er.24 08/12/16 Levothyroxine [Synthroid] 100 mcg PO DAILY #0 tab 08/12/16 Metoprolol Tartrate [Lopressor] 12.5 mg PO Q12 #30 tab 08/12/16 Pregabalin [Lyrica] 100 mg PO TID #0 cap 08/12/16 Metformin HCl [Glucophage] 1 tab PO TID 12/01/16 Repaglinide [Prandin] 1 tab PO BID 12/01/16 - Allergies Allergies/Adverse Reactions: Allergies Allergy/AdvReac Type Severity Reaction Status Date / Time No Known Allergies Allergy Verified 11/30/16 19:00 Review of Systems ROS Statement: Except As Marked, All Systems Reviewed And Found Negative Constitutional: Negative for: Fever, Chills Gastrointestinal: Negative for: Vomiting Musculoskeletal: Positive for: Shoulder Pain (left), Back Pain (upper) Physical Exam - Reviewed Nursing Documentation Reviewed: Yes Vital Signs Reviewed: Yes - Physical Exam Appears: Positive for: Well (but fragile and elderly), Non-toxic, No Acute Distress Head Exam: Positive for: ATRAUMATIC, NORMAL INSPECTION, NORMOCEPHALIC Eye Exam: Positive for: Normal appearance, EOMI, PERRL. Negative for: Nystagmus Cardiovascular/Chest: Positive for: Regular Rate, Rhythm Respiratory: Positive for: Normal Breath Sounds. Negative for: Respiratory Distress Gastrointestinal/Abdominal: Positive for: Soft Back: Positive for: Normal Inspection, Vertebral Tenderness Extremity: Positive for: Normal ROM, Tenderness (left shoulder). Negative for: Pedal Edema, Deformity Neurologic/Psych: Positive for: Alert (x3), bar tacker II-XII (intact), Oriented. Negative for: Other (focal deficits) - Laboratory Results Result Diagrams: 04/18/17 07:05 04/18/17 07:05 - ECG O2 Sat by Pulse Oximetry: 98 (RA) Pulse Ox Interpretation: Normal Medical Decision Making Medical Decision Making: Initial Impression: Fall/ Syncope Initial Plan: * CT head without contrast * Labs * Troponin I * CXR * Urine C&S * Urinalysis Time: 0700 --Patient was signed off to Dr. Michele Boucher. Pending CT results and re- evaluation. Scribe Attestation: Documented by Shiela Golden, acting as a scribe for Andrez Pederson MD. Provider Scribe Attestation: All medical record entries made by the Scribe were at my direction and personally dictated by me. I have reviewed the chart and agree that the record accurately reflects my personal performance of the history, physical exam, medical decision making, and the department course for this patient. I have also personally directed, reviewed, and agree with the discharge instructions and disposition. Disposition - Clinical Impression Clinical Impression: Mandibular fracture, closed, Rib fractures - Patient ED Disposition Is Patient to be Admitted: Transfer of Care - Disposition Disposition: Transfer of Care Disposition Time: 07:00 Condition: STABLE Forms: [email or web address] (Mauritanian) Patient Signed Over To: Michele Boucher
[2017-04-18 07:00] VITALS: BMI 18.3
[2017-04-18 07:13] LABS: BASO # 0.1 K/uL (0.0-0.2); BASO % 0.8 % (0.0-2.0); EOS % 9.3 % (0.0-4.0); HEMOGLOBIN 10.2 g/dL (12.0-18.0); LYMPH # 2.5 K/uL (1.0-4.3); LYMPH % 22.5 % (20.0-40.0); MEAN CELL VOLUME 79.4 fl (80.0-94.0); MEAN CORPUSCULAR HEMOGLOBIN 24.7 pg (27.0-31.0); MONO # 0.7 K/uL (0.0-0.8); MONO % 6.2 % (0.0-10.0); NEUT # 6.8 K/uL (1.8-7.0); NEUT % 61.2 % (50.0-75.0); RBC 4.14 Mil/uL (4.40-5.90); RED CELL DISTRIBUTION WIDTH 16.6 % (11.5-14.5); WHITE BLOOD COUNT 11.1 K/uL (4.8-10.8)
[2017-04-18 07:25] LABS: ALB/GLOB RATIO 1.2 (1.0-2.1); ALBUMIN 3.9 g/dL (3.5-5.0); ALT/SGPT 25 U/L (21-72); AST/SGOT 31 U/L (17-59); BLOOD UREA NITROGEN 17 mg/dl (9-20); CALCIUM 9.5 mg/dL (8.4-10.2); GFR AFRICAN-AMERICAN > 60; GFR NON-AFRICAN AMERICAN > 60
[2017-04-18] MEDS ORDERED: Iohexol 300 100 ML IJ ONE (08:19)
[2017-04-18] MEDS ORDERED: Sodium Chloride 0.9% 50 ML IV ONE (08:20)
--- NOTE | 2017-04-18 08:58 | RAD ---
HISTORY: fall COMPARISON: COMPARISON IS MADE TO 11/30/2016 FINDINGS: LUNGS: Prominent lung markings noted. Findings suggestive of mild pulmonary congestion. PLEURA: No significant pleural effusion identified, no pneumothorax apparent. CARDIOVASCULAR: The cardiac silhouette is mildly enlarged. OSSEOUS STRUCTURES: No significant abnormalities. VISUALIZED UPPER ABDOMEN: Normal. OTHER FINDINGS: None. IMPRESSION: Suspicious for mild pulmonary vascular congestion. No evidence of pneumonia or significant pleural effusion.
--- NOTE | 2017-04-18 09:39 | CT ---
PROCEDURE: CT HEAD WITHOUT CONTRAST. HISTORY: fall, syncope COMPARISON: Comparison is made to the previous study dated 11/30/2016 TECHNIQUE: Axial computed tomography images were obtained through the head/brain without intravenous contrast. Radiation dose: Total exam DLP = 920.48 mGy-cm. This CT exam was performed using one or more of the following dose reduction techniques: Automated exposure control, adjustment of the mA and/or kV according to patient size, and/or use of iterative reconstruction technique. FINDINGS: HEMORRHAGE: No intracranial hemorrhage. BRAIN: No mass effect or edema. Re- demonstration of mild atrophy and chronic microvascular white matter ischemic disease. VENTRICLES: Unremarkable. No hydrocephalus. CALVARIUM: Unremarkable. PARANASAL SINUSES: Unremarkable as visualized. No significant inflammatory changes. MASTOID AIR CELLS: Unremarkable as visualized. No inflammatory changes. OTHER FINDINGS: None. IMPRESSION: No evidence of acute intracranial hemorrhage intracranial collection mass effect or midline shift. Re- demonstration of mild atrophy and chronic microvascular ischemic disease.
--- NOTE | 2017-04-18 09:48 | CT ---
PROCEDURE: CT Cervical Spine without contrast HISTORY: Evaluate for fracture COMPARISON: None available. TECHNIQUE: Axial computed tomography images were obtained of the cervical spine without the use of intravenous contrast. Coronal and sagittal reformatted images were created and reviewed. Radiation dose: Total exam DLP = 347.39 mGy-cm. This CT exam was performed using one or more of the following dose reduction techniques: Automated exposure control, adjustment of the mA and/or kV according to patient size, and/or use of iterative reconstruction technique. FINDINGS: VERTEBRAE: No fracture. Normal alignment. No destructive bony lesion. DISCS/SPINAL CANAL/NEURAL FORAMINA: There are moderate spondylosis. Multilevel osteophyte disc bulging complex full prominent at C5-C6. Multilevel narrowing of the intervertebral disc is space also more prominent at C5-C6. PARASPINAL SOFT TISSUES: Unremarkable. OTHER FINDINGS: Incidentally noted is right mandibular sub condyle fracture best seen on sagittal image 34. There is partial opacification of the right mastoid. IMPRESSION: No evidence of acute displaced fracture or subluxation of the cervical spine. Moderate spondylosis associated with multilevel osteophyte disc bulging complex more prominent at C5-C6. Incidentally noted is small nondisplaced fracture at the right mandibular bone adjacent to the mandibular condyle best seen on image 35-36 series 602
--- NOTE | 2017-04-18 10:13 | CT ---
PROCEDURE: CT Chest with contrast (Pulmonary Angiogram) HISTORY: fall COMPARISON: None available. TECHNIQUE: Axial computed tomography images were obtained of the chest in the pulmonary arterial phase of enhancement. Coronal and sagittal reformatted images were created and reviewed. Intravenous contrast dose: 95 mL of Omnipaque 300 Radiation dose: Total exam DLP = 234.59 mGy-cm. This CT exam was performed using one or more of the following dose reduction techniques: Automated exposure control, adjustment of the mA and/or kV according to patient size, and/or use of iterative reconstruction technique. FINDINGS: PULMONARY ARTERIES: Unremarkable. No pulmonary embolism. AORTA: No acute findings. No thoracic aortic aneurysm. The thoracic aorta is mildly ectatic. There is moderate atherosclerotic disease associated with foci of mural thickening and mural calcification. LUNGS: There are reticular nodular opacities at the right upper lobe. There is spiculated opacity at the right upper lobe right apex image 20 5 May represent scar tissue. Other etiology including neoplasm is not totally excluded. There is focal opacities seen at the right hilum. PLEURAL SPACES: Unremarkable. No effusion or pneuomothorax. There is a focal pleural thickening seen at the anterior aspect of the left upper lobe. There are also small foci of pleural thickening associated with punctate calcification at the right chest P HEART: Unremarkable. No cardiomegaly. No significant pericardial effusion. LYMPH NODES: No lymphadenopathy. BONES, CHEST WALL: Unremarkable. No fracture or destructive lesion OTHER FINDINGS: Large coarse calcifications seen at the peripheral aspect of the spleen may represent calcified old hematoma. IMPRESSION: No evidence of pulmonary embolus. Reticular opacities and possible small infiltrate at the right upper lobe. Evaluate for infectious process/ pneumonia. Small spiculated opacity at the right upper lobe. Three months follow-up reassessment is suggested. Small foci of pleural based nodule may represent pleural thickening. Otherwise no evidence of acute pathology in the chest.
--- NOTE | 2017-04-18 10:19 | CARD ---
APPROVED REPORT EKG Measurement Heart [id number] <Conclusion> Normal sinus rhythm Nonspecific ST and T wave abnormality Abnormal ECG
--- NOTE | 2017-04-18 10:34 | CT ---
PROCEDURE: CT Thoracic Spine without contrast HISTORY: fall COMPARISON: None. TECHNIQUE: Axial computed tomography images were obtained of the thoracic spine without intravenous contrast. Coronal and sagittal reformatted images were created and reviewed. Radiation dose: Total exam DLP = 406.33 mGy-cm. This CT exam was performed using one or more of the following dose reduction techniques: Automated exposure control, adjustment of the mA and/or kV according to patient size, and/or use of iterative reconstruction technique. FINDINGS: VERTEBRAE: Unremarkable. No fracture. Normal alignment. DISCS/SPINAL CANAL/NEURAL FORAMINA: Within the limits of the CT technique, no disc herniation seen. No central canal or neural foraminal stenosis.. PARASPINAL SOFT TISSUES: Unremarkable. OTHER FINDINGS: Incidentally noted is acute fracture at the posterior left 1st rib adjacent to the costophrenic junction. There is also questionable small nondisplaced fracture at the posterior aspect of the 2nd left rib.. IMPRESSION: No evidence of acute fracture or at the thoracic spine. Incidentally noted is an acute fracture at the posterior aspect of the left 1st rib. There is also small fracture at the posterior aspect of the left 2nd rib adjacent to the costophrenic junction.
--- NOTE | 2017-04-18 10:46 | CT ---
PROCEDURE: CT Lumbar Spine without contrast HISTORY: fall COMPARISON: None. TECHNIQUE: Axial computed tomography images were obtained of the lumbar spine without the use of intravenous contrast. Coronal and sagittal reformatted images were created and reviewed. Radiation dose: Total exam DLP = 403.5 mGy-cm. This CT exam was performed using one or more of the following dose reduction techniques: Automated exposure control, adjustment of the mA and/or kV according to patient size, and/or use of iterative reconstruction technique. FINDINGS: VERTEBRAE: Unremarkable. No fracture. Normal alignment. Diffuse osteopenia is noted. DISCS/SPINAL CANAL/NEURAL FORAMINA: L1-2: Unremarkable. L2-3: There is anterior ligament calcification associated small disc bulging and posterior ligament and facet joint hypertrophy which resulting in mild to moderate spinal stenosis. No evidence of significant neural foraminal narrowing. L3-4: There is small broad-based disc bulging seen associated with posterior ligament and facet joint hypertrophy which resulting in mild spinal stenosis. L4-5: There is a moderate size disc bulging/ herniation associated with posterior ligament and facet joint hypertrophy which resulting in moderate to mildly severe spinal stenosis. There is also mild bilateral neural foraminal narrowing. L5-S1: Osteophyte disc herniation seen at L5-S1 associated with posterior ligament and facet joint hypertrophy which resulting in moderate to severe spinal and mild bilateral neural foraminal narrowing. PARASPINAL SOFT TISSUES: There is right ureter stent in place. The urinary bladder is distended. The right kidney is small in size. OTHER FINDINGS: None. IMPRESSION: No evidence of acute fracture or subluxation. Advanced spondylosis. Multilevel osteophyte disc bulging complex more prominent at L4-L5 and L5-S1. Moderate to severe spinal stenosis at L4-L5 and L5-S1. Moderate to severe narrowing of the intervertebral disc space at L5-S1 associated with endplate degenerative changes.
--- NOTE | 2017-04-18 11:29 | ED PDOC ---
- Laboratory Results Result Diagrams: 04/18/17 07:05 04/18/17 07:05 - ECG O2 Sat by Pulse Oximetry: 96 Pulse Ox Interpretation: Normal - Radiology X-Ray: Interpreted by Me X-Ray Interpretation: No Acute Disease - Progress ED Course And Treament: PROCEDURE: CT Lumbar Spine without contrast HISTORY: fall COMPARISON: None. TECHNIQUE: Axial computed tomography images were obtained of the lumbar spine without the use of intravenous contrast. Coronal and sagittal reformatted images were created and reviewed. Radiation dose: Total exam DLP = 403.5 mGy-cm. This CT exam was performed using one or more of the following dose reduction techniques: Automated exposure control, adjustment of the mA and/or kV according to patient size, and/or use of iterative reconstruction technique. FINDINGS: VERTEBRAE: Unremarkable. No fracture. Normal alignment. Diffuse osteopenia is noted. DISCS/SPINAL CANAL/NEURAL FORAMINA: L1-2: Unremarkable. L2-3: There is anterior ligament calcification associated small disc bulging and posterior ligament and facet joint hypertrophy which resulting in mild to moderate spinal stenosis. No evidence of significant neural foraminal narrowing. L3-4: There is small broad-based disc bulging seen associated with posterior ligament and facet joint hypertrophy which resulting in mild spinal stenosis. L4-5: There is a moderate size disc bulging/ herniation associated with posterior ligament and facet joint hypertrophy which resulting in moderate to mildly severe spinal stenosis. There is also mild bilateral neural foraminal narrowing. L5-S1: Osteophyte disc herniation seen at L5-S1 associated with posterior ligament and facet joint hypertrophy which resulting in moderate to severe spinal and mild bilateral neural foraminal narrowing. PARASPINAL SOFT TISSUES: There is right ureter stent in place. The urinary bladder is distended. The right kidney is small in size. OTHER FINDINGS: None. IMPRESSION: No evidence of acute fracture or subluxation. Advanced spondylosis. Multilevel osteophyte disc bulging complex more prominent at L4-L5 and L5-S1. Moderate to severe spinal stenosis at L4-L5 and L5-S1. Moderate to severe narrowing of the intervertebral disc space at L5-S1 associated with endplate degenerative changes. PROCEDURE: CT Chest with contrast (Pulmonary Angiogram) HISTORY: fall COMPARISON: None available. TECHNIQUE: Axial computed tomography images were obtained of the chest in the pulmonary arterial phase of enhancement. Coronal and sagittal reformatted images were created and reviewed. Intravenous contrast dose: 95 mL of Omnipaque 300 Radiation dose: Total exam DLP = 234.59 mGy-cm. This CT exam was performed using one or more of the following dose reduction techniques: Automated exposure control, adjustment of the mA and/or kV according to patient size, and/or use of iterative reconstruction technique. FINDINGS: PULMONARY ARTERIES: Unremarkable. No pulmonary embolism. AORTA: No acute findings. No thoracic aortic aneurysm. The thoracic aorta is mildly ectatic. There is moderate atherosclerotic disease associated with foci of mural thickening and mural calcification. LUNGS: There are reticular nodular opacities at the right upper lobe. There is spiculated opacity at the right upper lobe right apex image 20 5 May represent scar tissue. Other etiology including neoplasm is not totally excluded. There is focal opacities seen at the right hilum. PLEURAL SPACES: Unremarkable. No effusion or pneuomothorax. There is a focal pleural thickening seen at the anterior aspect of the left upper lobe. There are also small foci of pleural thickening associated with punctate calcification at the right chest P HEART: Unremarkable. No cardiomegaly. No significant pericardial effusion. LYMPH NODES: No lymphadenopathy. BONES, CHEST WALL: Unremarkable. No fracture or destructive lesion OTHER FINDINGS: Large coarse calcifications seen at the peripheral aspect of the spleen may represent calcified old hematoma. IMPRESSION: No evidence of pulmonary embolus. Reticular opacities and possible small infiltrate at the right upper lobe. Evaluate for infectious process/ pneumonia. Small spiculated opacity at the right upper lobe. Three months follow-up reassessment is suggested. Small foci of pleural based nodule may represent pleural thickening. Otherwise no evidence of acute pathology in the chest. PROCEDURE: CT Chest with contrast (Pulmonary Angiogram) HISTORY: fall COMPARISON: None available. TECHNIQUE: Axial computed tomography images were obtained of the chest in the pulmonary arterial phase of enhancement. Coronal and sagittal reformatted images were created and reviewed. Intravenous contrast dose: 95 mL of Omnipaque 300 Radiation dose: Total exam DLP = 234.59 mGy-cm. This CT exam was performed using one or more of the following dose reduction techniques: Automated exposure control, adjustment of the mA and/or kV according to patient size, and/or use of iterative reconstruction technique. FINDINGS: PULMONARY ARTERIES: Unremarkable. No pulmonary embolism. AORTA: No acute findings. No thoracic aortic aneurysm. The thoracic aorta is mildly ectatic. There is moderate atherosclerotic disease associated with foci of mural thickening and mural calcification. LUNGS: There are reticular nodular opacities at the right upper lobe. There is spiculated opacity at the right upper lobe right apex image 20 5 May represent scar tissue. Other etiology including neoplasm is not totally excluded. There is focal opacities seen at the right hilum. PLEURAL SPACES: Unremarkable. No effusion or pneuomothorax. There is a focal pleural thickening seen at the anterior aspect of the left upper lobe. There are also small foci of pleural thickening associated with punctate calcification at the right chest P HEART: Unremarkable. No cardiomegaly. No significant pericardial effusion. LYMPH NODES: No lymphadenopathy. BONES, CHEST WALL: Unremarkable. No fracture or destructive lesion OTHER FINDINGS: Large coarse calcifications seen at the peripheral aspect of the spleen may represent calcified old hematoma. IMPRESSION: No evidence of pulmonary embolus. Reticular opacities and possible small infiltrate at the right upper lobe. Evaluate for infectious process/ pneumonia. Small spiculated opacity at the right upper lobe. Three months follow-up reassessment is suggested. Small foci of pleural based nodule may represent pleural thickening. Otherwise no evidence of acute pathology in the chest. PROCEDURE: CT Cervical Spine without contrast HISTORY: Evaluate for fracture COMPARISON: None available. TECHNIQUE: Axial computed tomography images were obtained of the cervical spine without the use of intravenous contrast. Coronal and sagittal reformatted images were created and reviewed. Radiation dose: Total exam DLP = 347.39 mGy-cm. This CT exam was performed using one or more of the following dose reduction techniques: Automated exposure control, adjustment of the mA and/or kV according to patient size, and/or use of iterative reconstruction technique. FINDINGS: VERTEBRAE: No fracture. Normal alignment. No destructive bony lesion. DISCS/SPINAL CANAL/NEURAL FORAMINA: There are moderate spondylosis. Multilevel osteophyte disc bulging complex full prominent at C5-C6. Multilevel narrowing of the intervertebral disc is space also more prominent at C5-C6. PARASPINAL SOFT TISSUES: Unremarkable. OTHER FINDINGS: Incidentally noted is right mandibular sub condyle fracture best seen on sagittal image 34. There is partial opacification of the right mastoid. IMPRESSION: No evidence of acute displaced fracture or subluxation of the cervical spine. Moderate spondylosis associated with multilevel osteophyte disc bulging complex more prominent at C5-C6. Incidentally noted is small nondisplaced fracture at the right mandibular bone adjacent to the mandibular condyle best seen on image 35-36 series 602 PROCEDURE: CT HEAD WITHOUT CONTRAST. HISTORY: fall, syncope COMPARISON: Comparison is made to the previous study dated 11/30/2016 TECHNIQUE: Axial computed tomography images were obtained through the head/brain without intravenous contrast. Radiation dose: Total exam DLP = 920.48 mGy-cm. This CT exam was performed using one or more of the following dose reduction techniques: Automated exposure control, adjustment of the mA and/or kV according to patient size, and/or use of iterative reconstruction technique. FINDINGS: HEMORRHAGE: No intracranial hemorrhage. BRAIN: No mass effect or edema. Re- demonstration of mild atrophy and chronic microvascular white matter ischemic disease. VENTRICLES: Unremarkable. No hydrocephalus. CALVARIUM: Unremarkable. PARANASAL SINUSES: Unremarkable as visualized. No significant inflammatory changes. MASTOID AIR CELLS: Unremarkable as visualized. No inflammatory changes. OTHER FINDINGS: None. IMPRESSION: No evidence of acute intracranial hemorrhage intracranial collection mass effect or midline shift. Re- demonstration of mild atrophy and chronic microvascular ischemic disease. Re-evaluation Time: 11:27 Condition: Improved Medical Decision Making Medical Decision Making: pt transferred for higher level of car eval by omfs and trauma Disposition Counseled Patient/Family Regarding: Studies Performed, Diagnosis - Clinical Impression Clinical Impression: Mandibular fracture, closed, Rib fractures - POA Present On Arrival: Falls Or Trauma - Disposition Disposition: Other Institution (transfer to [facility] for trauma eval accepted by Dr garcia) Disposition Time: 15:48 Condition: STABLE Forms: [employer] (Lao)
--- NOTE | 2017-04-18 12:38 | RAD ---
PROCEDURE: Radiographs of the Left Shoulder HISTORY: left shoulder pain sp fall COMPARISON: No prior. FINDINGS: BONES: No acute fracture. JOINTS: Degenerative changes left acromioclavicular joint. High riding left humeral head relative to the glenoid consistent with rotator cuff disease. SOFT TISSUES: Normal. OTHER FINDINGS: None. IMPRESSION: No acute findings related to/accounting for the clinical presentation. Concordant results with the preliminary interpretation rendered by the emergency department physician procedure.
[2017-04-18 13:58] LABS: URINE COLOR YELLOW (YELLOW)
[2017-04-18 14:00] LABS: PH,URINE 6.5 (5.0-8.0); URINE BILIRUBIN NEGATIVE (NEGATIVE); URINE BLOOD NEGATIVE (NEGATIVE); URINE GLUCOSE (UA) >=1000 mg/mL mg/dL (Normal); URINE PROTEIN NEGATIVE (NEGATIVE); URINE UROBILINOGEN 0.2 mg/dL (0.2-1.0)
[2017-04-18 14:01] LABS: SQUAMOUS EPITHIAL 3 /hpf (0-5); URINE BACTERIA RARE (<OCC); URINE LEUKOCYTE ESTERASE SMALL Leu/uL (Negative); URINE NITRATE NEGATIVE (NEGATIVE)
--- NOTE | 2017-04-18 14:29 | CT ---
PROCEDURE: CT MAXILLOFACIAL BONES WITHOUT CONTRAST HISTORY: trauma COMPARISON: None TECHNIQUE: Contiguous axial CT images of the maxillofacial bones were obtained. Coronal and sagittal reformats were generated. Radiation dose: Total exam DLP = 767.1 seconds mGy-cm. This CT exam was performed using one or more of the following dose reduction techniques: Automated exposure control, adjustment of the mA and/or kV according to patient size, and/or use of iterative reconstruction technique. FINDINGS: NASAL BONES: Unremarkable. ORBITS: Unremarkable. PARANASAL SINUSES/ MASTOIDS: There is mild mucosal thickening K seen in the ethmoid and maxillary sinuses. The maxillary sinuses are small in size suggestive of possible chronic sinusitis. MAXILLA: Unremarkable. MANDIBLE/ TEMPOROMANDIBULAR JOINTS: There is right condylar acute fracture extending to the subcondylar portion of the mandible. There is no evidence of significant dislocation at the TMJ joint. Multiple foci of lucency seen in the mandible likely related to periodontal abscesses and teeth caries. SKULL BASE: Unremarkable. TEMPORAL BONES: Middle ears and mastoid grossly unremarkable. OTHER FINDINGS: None. IMPRESSION: Acute right mandibular condylar fracture without evidence of dislocation at the TMJ. Mild sinuses mucosal disease. Multiple periodontal lucency.
[2017-04-18 15:28] VITALS: BP 143/61; PULSE 84; RESP 18; TEMP 99
[2017-04-19 04:41] VITALS: O2SAT 98
== END 2017-04-18 14:45 | disposition short-term general hospital (02) ==
LOC: H.ER 06:34
DX: S02.611A Fracture of condylar process of right mandible, initial encounter for closed fracture (principal); S22.32XA Fracture of one rib, left side, initial encounter for closed fracture; W19.XXXA Unspecified fall, initial encounter; I10 Essential (primary) hypertension; E11.9 Type 2 diabetes mellitus without complications; I48.91 Unspecified atrial fibrillation
CPT/HCPCS: 70450; 70486; 71010; 71275; 72125; 72128; 72131; 73030; 80053; 81003; 82948; 84484; 85025; 87086; 93005; 99285; Q9967

== ENCOUNTER 2017-05-13 00:38 | Inpatient (IN) | payer MEDICARE ==
[2017-05-13 00:38] VITALS: BMI 19.6
[2017-05-13] MEDS ORDERED: Sodium Chloride 0.9% 1,000 ML IV STA (01:01)
--- NOTE | 2017-05-13 01:08 | ED PDOC ---
HPI: Abdomen Time Seen by Provider: 05/13/17 00:45 Chief Complaint (Nursing): Abdominal Pain Chief Complaint (Provider): GI problem History Per: Patient History/Exam Limitations: no limitations Onset/Duration Of Symptoms: Hrs (3.5 hours prior to arrival) Current Symptoms Are (Timing): Still Present Severity: Moderate Quality Of Discomfort: denies: Cramping, "Pain" Associated Symptoms: Diarrhea. denies: Fever, Chills, Nausea, Vomiting, Constipation Additional Complaint(s): 81 year old male with a pertinent medical history of hypertension and diabetes presents to the ED with complaints of diarrhea that started 3.5x hours prior to arrival. He reports that in the past 3.5x hours, he has had 45x episodes of watery diarrhea. He denies having nausea, vomiting, abdominal pain, cramping, fevers, chills, change in medications, recent use of antibiotics, and abdominal surgery. PMD: Rene Huerta MD. Past Medical History Reviewed: Historical Data, Nursing Documentation, Vital Signs Vital Signs: Last Vital Signs Temp 98.0 F 05/13/17 00:46 Pulse 75 05/13/17 00:46 Resp 16 05/13/17 00:46 BP 146/77 05/13/17 00:46 Pulse Ox 98 05/13/17 02:32 - Medical History PMH: Atrial Fibrillation, COPD, Diabetes (type II), HTN, Hypothyroidism, Malignancy Denies: HIV, Chronic Kidney Disease - Family History Family History: States: Diabetes - Social History Current smoker - smoking cessation education provided: No Alcohol: None Drugs: Denies - Home Medications Home Medications: Ambulatory Orders Medication Instructions Recorded Aspirin [Aspirin Chewable] 81 mg PO DAILY #30 chew 08/12/16 Esomeprazole Magnesium [Nexium] 40 mg PO DAILY #0 capsule.dr 08/12/16 Glipizide [Glipizide ER] 10 mg PO BID #0 tab.er.24 08/12/16 Levothyroxine [Synthroid] 100 mcg PO DAILY #0 tab 08/12/16 Metoprolol Tartrate [Lopressor] 12.5 mg PO Q12 #30 tab 08/12/16 Pregabalin [Lyrica] 100 mg PO TID #0 cap 08/12/16 Metformin HCl [Glucophage] 1 tab PO TID 12/01/16 Repaglinide [Prandin] 1 tab PO BID 12/01/16 - Allergies Allergies/Adverse Reactions: Allergies Allergy/AdvReac Type Severity Reaction Status Date / Time No Known Allergies Allergy Verified 11/30/16 19:00 Review of Systems ROS Statement: Except As Marked, All Systems Reviewed And Found Negative Constitutional: Negative for: Fever, Chills Gastrointestinal: Positive for: Diarrhea (45x episodes of watery diarrhea). Negative for: Nausea, Vomiting, Abdominal Pain Physical Exam - Reviewed Nursing Documentation Reviewed: Yes Vital Signs Reviewed: Yes - Physical Exam Appears: Positive for: Well, Non-toxic, No Acute Distress Head Exam: Positive for: ATRAUMATIC, NORMOCEPHALIC Skin: Positive for: Normal Color, Warm, Dry Cardiovascular/Chest: Positive for: Regular Rate, Rhythm Respiratory: Positive for: Normal Breath Sounds. Negative for: Respiratory Distress Gastrointestinal/Abdominal: Positive for: Normal Exam, Soft. Negative for: Tenderness, Mass, Guarding, Rebound Neurologic/Psych: Positive for: Alert, Oriented (3x) - Laboratory Results Result Diagrams: 05/13/17 01:25 05/13/17 01:25 - ECG O2 Sat by Pulse Oximetry: 98 (RA) Pulse Ox Interpretation: Normal Medical Decision Making Medical Decision Makin:45 Initial impression: 81 year old male with diarrhea. Initial plan: * CMP * lactic acid, plasma * CBC * imodium 4 mg PO * IV NS 1,000 ml IV 500 mls/hr * reevaluation 2:15 Patient has multiple electrolyte abnormalities. Cannot give insulin due to hypoglycemia. Patient will be treated with calcium and albuterol. Patient will be admitted to [facility] under Dr. Huerta. Scribe Attestation: Documented by Lenora Flores, acting as a scribe for Brady Guzman MD. Provider Scribe Attestation: All medical record entries made by the Scribe were at my direction and personally dictated by me. I have reviewed the chart and agree that the record accurately reflects my personal performance of the history, physical exam, medical decision making, and the department course for this patient. I have also personally directed, reviewed, and agree with the discharge instructions and disposition. Disposition - Clinical Impression Clinical Impression: Hypoglycemia, Hyperkalemia, Hyponatremia - Disposition Referrals: Rene Huerta MD [Primary Care Provider] - Disposition Time: 02:15 Condition: STABLE Forms: Bolongaro Trevor (Slovenian)
[2017-05-13 01:36] LABS: BASO % 0.5 % (0.0-2.0); HEMATOCRIT 30.7 % (35.0-51.0); LYMPH # 2.1 K/uL (1.0-4.3); LYMPH % 24.3 % (20.0-40.0); MEAN CORPUSCULAR HEMOGLOBIN 24.6 pg (27.0-31.0); MEAN CORPUSCULAR HGB CONC 31.6 g/dL (33.0-37.0); MEAN PLATELET VOLUME 7.1 fl (7.2-11.7); MONO % 11.2 % (0.0-10.0); NEUT # 4.7 K/uL (1.8-7.0); NRBC % 0.1 % (0.0-0.0); RED CELL DISTRIBUTION WIDTH 15.8 % (11.5-14.5); WHITE BLOOD COUNT 8.8 K/uL (4.8-10.8)
[2017-05-13 02:04] LABS: BLOOD UREA NITROGEN 16 mg/dl (9-20); CALCIUM 8.8 mg/dL (8.4-10.2); CARBON DIOXIDE 28 mmol/L (22-30); CHLORIDE 94 mmol/L (98-107); GFR AFRICAN-AMERICAN > 60; GLUCOSE,RANDOM 45 mg/dL (75-110); SODIUM 127 mmol/l (132-148); TOTAL PROTEIN 7.2 G/DL (6.3-8.2)
[2017-05-13 02:05] LABS: ALKALINE PHOSPHATASE 89 U/L (38-126); ALT/SGPT 25 U/L (21-72); AST/SGOT 23 U/L (17-59); BILIRUBIN,TOTAL 0.4 mg/dl (0.2-1.3); POTASSIUM 5.8 MMOL/L (3.6-5.0)
[2017-05-13] MEDS ORDERED: Dextrose 50% SYRINGE Inj (50 ml) IVP ONE (02:10)
[2017-05-13] MEDS ORDERED: Albuterol 0.083% Inhal Sol (2.5 mg/3 mL) UD INH STA ×3 (02:11→02:12)
[2017-05-13] MEDS ORDERED: Sodium Chloride 0.9% 1,000 ML IV SCH (02:15)
[2017-05-13] MEDS ORDERED: Bismuth Subsalicylate 262 mg Chew Tab PO PRN (02:54)
[2017-05-13 03:13] LABS: T4 7.37 ug/dl (5.5-11.0)
--- NOTE | 2017-05-13 04:19 | CP.PCM.HP ---
<Luis Felipe Davalos - Last Filed: 05/13/17 05:19> History of Present Illness - History of Present Illness History of Present Illness: CC/HPI: 81 y.o. male presents to the E.D. via uber with chief complaint of diarrhea. Diarrhea onset at 9pm., watery in quality, persistent with frequency, no alleviating or aggravating factors. Pt. denies any recent travel, sick contacts, or eating anything unusual. Pt. states he takes "pain medication" for his chronic back pain and has not taken anything since Tuesday morning. Pt. denies any drug or alcohol use. Pt. denies any abdominal pain, fever, chills, hematuria, melena, hematochezia, hemoptysis, or hematemesis. Pt. states his last BM was yesetday described as hard. Pt. states he is usually constipated wit hard stools and moves his bowel every 2 to 3 days. ROS: Pt. denies any headache, chest pain, dyspnea, abdominal pain, fever, chills , flank pain. PMHx: Carcinoid tumor s/p Radiation, HTN, HLD, Hypothyroidism, Type II NIDDM PSHx: Lumbar spine fusion, Rt. Ureteral Stent FMHx: Not contributory ScHx: denies smoking, EtOH, drugs lives with Allergies: NKDA Home Medications: Synthroid 100mcg daily amlodipine 2.5mg PO daily lyrica 100mg PO TID metformin 1000mg PO TID glipzide 10mg BID nexium 40mg PO Daily Prandin 2mg PO BID PMD: Dr. Rodriguez Cardio: Dr. Ramires Endo: Dr. Rani Boggs Onc: Dr.Andrew Lea at [place] Pain: Dr. Alatorre Urology: Dr. Ackerman at [facility] Course Initial plan: * CMP * lactic acid, plasma * CBC * imodium 4 mg PO * IV NS 1,000 ml IV 500 mls/hr * Flat plate abdomen * Chest x-ray * EKG * Albuterol INH * Calcium gluconate Present on Admission - Present on Admission Any Indicators Present on Admission: No History of DVT/PE: No History of Uncontrolled Diabetes: No Urinary Catheter: No Decubitus Ulcer Present: No Review of Systems - Review of Systems Review of Systems: See HPI Past Patient History - Infectious Disease Hx of Infectious Diseases: None - Past Medical History & Family History Past Medical History?: Yes - Past Social History Smoking Status: Never Smoked - CARDIAC Hx Atrial Fibrillation: Yes Hx Hypertension: Yes - PULMONARY Hx Chronic Obstructive Pulmonary Disease (COPD): Yes - NEUROLOGICAL Hx Neurological Disorder: No - HEENT Hx HEENT Problems: No - RENAL Hx Chronic Kidney Disease: No - ENDOCRINE/METABOLIC Hx Hypothyroidism: Yes - HEMATOLOGICAL/ONCOLOGICAL Hx Human Immunodeficiency Virus (HIV): No - INTEGUMENTARY Hx Dermatological Problems: No - MUSCULOSKELETAL/RHEUMATOLOGICAL Hx Falls: No - GASTROINTESTINAL Hx Gastrointestinal Disorders: No - GENITOURINARY/GYNECOLOGICAL Hx Genitourinary Disorders: No - PSYCHIATRIC Hx Psychophysiologic Disorder: No Hx Substance Use: No - SURGICAL HISTORY Hx Surgeries: Yes - ANESTHESIA Hx Anesthesia: Yes Hx Anesthesia Reactions: No Meds Allergies/Adverse Reactions: Allergies Allergy/AdvReac Type Severity Reaction Status Date / Time No Known Allergies Allergy Verified 11/30/16 19:00 Physical Exam - Constitutional Appears: Non-toxic, No Acute Distress - Head Exam Head Exam: ATRAUMATIC, NORMOCEPHALIC - Eye Exam Eye Exam: Normal appearance. absent: Scleral icterus - ENT Exam ENT Exam: Mucous Membranes Moist - Neck Exam Neck exam: Positive for: Full Rom - Respiratory Exam Respiratory Exam: Clear to Auscultation Bilateral, NORMAL BREATHING PATTERN - Cardiovascular Exam Cardiovascular Exam: REGULAR RHYTHM, +S1, +S2 - GI/Abdominal Exam GI & Abdominal Exam: Soft. absent: Guarding, Rigid, Tenderness - Extremities Exam Extremities exam: Positive for: normal inspection. Negative for: tenderness - Psychiatric Exam Psychiatric exam: Normal Affect, Normal Mood Results - Vital Signs Recent Vital Signs: Last Vital Signs Temp 99.0 F 05/13/17 03:26 Pulse 103 H 05/13/17 03:26 Resp 19 05/13/17 03:26 BP 131/56 L 05/13/17 03:26 Pulse Ox 100 05/13/17 03:26 - Labs Result Diagrams: 05/13/17 01:25 05/13/17 01:25 Labs: Laboratory Results - last 24 hr 05/13/17 02:47 Thyroxine (T4) 7.37 TSH 3rd Generation 2.00 Assessment & Plan - Assessment and Plan (Free Text) Assessment: 81 y.o. male with hx of Carcinoid tumor admitted for acute diarrhea with hyponatremia and hyperkalemia. Acute diarrhea of unclear etiology most likely due to poly-pharmacy - I.V. fluids N/S at 125cc/hr - C. 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 unaware of dose) - Will consider 5-HIAA levels for evaluation of Carcinoid recurrence Hyperkalemia- 5.8 s/p Bolus N/S - Repeat EKG - Repeat CMP Hyponatremia- 127 s/p Bolus N/S - I.V. fluids N/S at 125cc/hr - Repeat CMP Hypoglycemia- Given hypoglycemia on admission and diareha considere gradual restart of medications. - Hold Metformin - Hold Prandin - Hold Glipizide Chronic lower back pain s/p fusion surgery ( pt. unaware of dosing, frequency, and type of narcotics being use.) - Pain control HTN - c/w home medication Hypothyroidism - c/w Levothyroxine 100mc - TSH/T4 labs Diet - Vegan Lactose free/Roggen diet DVT prophylaxis - SCD <Rene Rodriguez - Last Filed: 05/18/17 06:51> Results - Vital Signs Recent Vital Signs: Last Vital Signs Temp 98.4 F 05/16/17 09:00 Pulse 80 05/16/17 09:00 Resp 20 05/16/17 09:00 BP 143/78 05/16/17 09:00 Pulse Ox 97 05/16/17 09:00 - Labs Result Diagrams: 05/14/17 05:00 05/14/17 20:05 Attending/Attestation - Attestation I have personally seen and examined this patient.: Yes I have fully participated in the care of the patient.: Yes I have reviewed all pertinent clinical information: Yes
[2017-05-13] MEDS: Levothyroxine 100 MCG TAB PO SCH (06:10)
[2017-05-13 07:03] LABS: HEMATOCRIT 27.2 % (35.0-51.0); MEAN CELL VOLUME 78.9 fl (80.0-94.0); MEAN CORPUSCULAR HEMOGLOBIN 25.1 pg (27.0-31.0); MEAN CORPUSCULAR HGB CONC 31.8 g/dL (33.0-37.0); RED CELL DISTRIBUTION WIDTH 15.6 % (11.5-14.5); WHITE BLOOD COUNT 8.6 K/uL (4.8-10.8)
[2017-05-13 07:22] LABS: ALKALINE PHOSPHATASE 82 U/L (38-126); ALT/SGPT 22 U/L (21-72); AST/SGOT 21 U/L (17-59); BILIRUBIN,TOTAL 0.3 mg/dl (0.2-1.3); BLOOD UREA NITROGEN 14 mg/dl (9-20); CALCIUM 8.8 mg/dL (8.4-10.2); CARBON DIOXIDE 26 mmol/L (22-30); CHLORIDE 99 mmol/L (98-107); GFR AFRICAN-AMERICAN > 60; GLUCOSE,RANDOM 209 mg/dL (75-110); SODIUM 132 mmol/l (132-148); TOTAL PROTEIN 6.2 G/DL (6.3-8.2)
[2017-05-13 07:32] LABS: POTASSIUM 5.4 MMOL/L (3.6-5.0)
[2017-05-13] MEDS: Saccharomyces Boulardi 250 mg Cap PO SCH ×2 (09:30→16:16)
[2017-05-13] MEDS: Sodium Chloride 0.9% 1,000 ML IV SCH (09:41)
--- NOTE | 2017-05-13 10:56 | RAD ---
HISTORY: r/o pna COMPARISON: 04/18/2017. FINDINGS: LUNGS: The lungs are well inflated. There is no focal consolidation. There are mild chronic changes in the lower lobes. PLEURA: No significant pleural effusion identified, no pneumothorax apparent. CARDIOVASCULAR: The heart is normal in size. There is stable asymmetric prominence of the right hilum. OSSEOUS STRUCTURES: Within normal limits for the patient's age. VISUALIZED UPPER ABDOMEN: Normal. OTHER FINDINGS: There is chronic elevation of the right hemidiaphragm. IMPRESSION: No acute findings.
--- NOTE | 2017-05-13 11:21 | CARD ---
APPROVED REPORT EKG Measurement Heart [id number] <Conclusion> Normal sinus rhythm Normal ECG
--- NOTE | 2017-05-13 11:29 | RAD ---
HISTORY: abdominal cramps/pain, Diarrhea COMPARISON: No prior. FINDINGS: There are no calcifications overlying the renal silhouette. A right-sided ureteral stent remains in customary position. There is a large coarse calcification in the left upper quadrant which may represent a calcified hematoma. BOWEL: The bowel gas pattern is nonspecific. Gas-filled bowel loops are identified in the abdomen. No obstruction. BONES: Within normal limits for the patient's age. OTHER FINDINGS: There is a small phlebolith in the right hemipelvis. IMPRESSION: Nonspecific bowel gas pattern.
--- NOTE | 2017-05-13 13:30 | CP.PCM.PN ---
<Lenora Bower - Last Filed: 05/13/17 14:44> Subjective - Date & Time of Evaluation Date of Evaluation: 05/13/17 Time of Evaluation: 07:00 - Subjective Subjective: Patient seen and examined with attending this morning. Patient denies Cp, SOB, N/V, abdominal pain or new episode of diarrheas Afebrile O: alert, awake, oriented x 3 CV: RRR, normal S1, S2 resp: CTA b/l, no rales, no rhonchi or wheezing abd: soft, non distended, no tenderness to palpation, bowel sounds present and normal. 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 c/w IV fluids NSS 0.9 % 80 ml/hr start advancing diet as tolerated consider DC fluids if tolerates PO without diarrheas f/u CBc, BMP, C-diff GI consult appreciated, Dr. Warren, f/u recommendations Objective - Vital Signs/Intake and Output Vital Signs (last 24 hours): - Medications Medications: - Labs Labs: <Rene Rodriguez - Last Filed: 05/18/17 06:52> Objective - Vital Signs/Intake and Output Vital Signs (last 24 hours): Temp Pulse Resp BP Pulse Ox 98.4 F 80 20 143/78 97 05/16/17 09:00 05/16/17 09:00 05/16/17 09:00 05/16/17 09:00 05/16/17 09:00 - Labs Labs: 05/14/17 05:00 05/14/17 20:05 Attending/Attestation - Attestation I have personally seen and examined this patient.: Yes I have fully participated in the care of the patient.: Yes I have reviewed all pertinent clinical information, including history, physical exam and plan: Yes
[2017-05-13] MEDS ORDERED: Dextrose 50% SYRINGE Inj (50 ml) IV PRN (14:50)
[2017-05-13] MEDS ORDERED: Glucagon Recombinant 1 mg Inj IM PRN (14:50)
[2017-05-13 15:43] LABS: URINE BILIRUBIN NEGATIVE (NEGATIVE); URINE BLOOD SMALL (NEGATIVE); URINE COLOR STRAW (YELLOW); URINE GLUCOSE (UA) 50 mg/dL (Normal); URINE KETONE NEGATIVE (NEGATIVE); URINE LEUKOCYTE ESTERASE NEG Leu/uL (Negative); URINE PROTEIN NEGATIVE (NEGATIVE); URINE UROBILINOGEN 0.2-1.0 mg/dL (0.2-1.0)
[2017-05-13 15:56] LABS: WBC URINE 11 /hpf (0-5)
[2017-05-13] MEDS: Enoxaparin 40 mg Syringe SC SCH (18:12)
[2017-05-13] MEDS: Insulin Lispro (humaLOG) 100 Units/ml Inj SC SCH ×2 (18:12→22:19)
--- NOTE | 2017-05-13 18:20 | CARD ---
APPROVED REPORT EKG Measurement Heart [id number] CT [id number] <Conclusion> Normal sinus rhythm Nonspecific T wave abnormality Abnormal ECG
[2017-05-14] MEDS: Sodium Chloride 0.9% 1,000 ML IV SCH ×2 (01:36→01:42)
[2017-05-14 05:23] LABS: HEMATOCRIT 27.8 % (35.0-51.0); MEAN CELL VOLUME 79.1 fl (80.0-94.0); MEAN CORPUSCULAR HEMOGLOBIN 24.8 pg (27.0-31.0); MEAN CORPUSCULAR HGB CONC 31.3 g/dL (33.0-37.0); WHITE BLOOD COUNT 8.9 K/uL (4.8-10.8)
[2017-05-14 05:31] LABS: BLOOD UREA NITROGEN 10 mg/dl (9-20); CALCIUM 8.3 mg/dL (8.4-10.2); CARBON DIOXIDE 26 mmol/L (22-30); CHLORIDE 104 mmol/L (98-107); GFR AFRICAN-AMERICAN > 60; GLUCOSE,RANDOM 95 mg/dL (75-110); SODIUM 134 mmol/l (132-148)
[2017-05-14] MEDS: Levothyroxine 100 MCG TAB PO SCH (06:24)
[2017-05-14] MEDS: Saccharomyces Boulardi 250 mg Cap PO SCH ×2 (08:22→16:31)
[2017-05-14] MEDS: Insulin Lispro (humaLOG) 100 Units/ml Inj SC SCH ×4 (08:23→21:51)
[2017-05-14] MEDS: Enoxaparin 40 mg Syringe SC SCH (08:24)
[2017-05-14] MEDS ORDERED: Insulin Regular 100 units/ml SC ONE (09:20)
[2017-05-14] MEDS ORDERED: Dextrose 50% SYRINGE Inj (50 ml) IVP ONE (10:00)
--- NOTE | 2017-05-14 10:24 | CP.PCM.PN ---
Subjective - Date & Time of Evaluation Date of Evaluation: 05/14/17 Time of Evaluation: 08:25 - Subjective Subjective: Patient seen and examined in Medsurg unit this morning. Patient was eating his breakfast at the time of evaluation. Denies Cp, SOB, N/V, palpitations, abdominal pain, diarrheas or other complains this morning. Afebrile Still with elevated potassium this morning. Objective - Vital Signs/Intake and Output Vital Signs (last 24 hours): Temp Pulse Resp BP Pulse Ox 99 F 85 20 144/53 L 95 05/14/17 08:22 05/14/17 08:22 05/14/17 08:22 05/14/17 08:22 05/14/17 08:22 - Medications Medications: Current Medications Acetaminophen (Tylenol 325mg Tab) 650 mg PO Q6 PRN PRN Reason: Pain, Mild (1-3) Aspirin (Aspirin Chewable) 81 mg PO DAILY [facility] Last Admin: 05/14/17 08:21 Dose: 81 mg Bismuth Subsalicylate (Pepto Bismol) 262 mg PO Q1 PRN PRN Reason: Diarrhea Dextrose (Dextrose 50% Inj) 0 ml IV STAT PRN; Protocol PRN Reason: Hyglycemia Protocol Dextrose (Glutose 15) 0 gm PO ONCE PRN; Protocol PRN Reason: Hypoglycemia Protocol Enoxaparin Sodium (Lovenox) 40 mg SC DAILY [facility] PRN Reason: Protocol Last Admin: 05/14/17 08:24 Dose: 40 mg Glucagon (Glucagen Diagnostic Kit) 0 mg IM STAT PRN; Protocol PRN Reason: Hypoglycemia Protocol Insulin Human Lispro (Humalog) 0 units SC [facility] PRN Reason: Protocol Last Admin: 05/14/17 08:23 Dose: Not Given Ketorolac Tromethamine (Toradol) 15 mg IVP Q6 PRN PRN Reason: Pain, moderate (4-7) Last Admin: 05/14/17 09:03 Dose: 15 mg Levothyroxine Sodium (Synthroid) 100 mcg PO DAILY@0630 [facility] Last Admin: 05/14/17 06:24 Dose: 100 mcg Metformin HCl (Glucophage) 1,000 mg PO BIDWM [facility] Last Admin: 05/14/17 08:22 Dose: 1,000 mg Metoprolol Tartrate (Lopressor) 12.5 mg PO Q12 [facility] Last Admin: 05/13/17 09:29 Dose: 12.5 mg Morphine Sulfate (Morphine) 1 mg IVP Q6 PRN PRN Reason: Pain, severe (8-10) Ondansetron HCl (Zofran Inj) 4 mg IVP Q6 PRN PRN Reason: Nausea/Vomiting Pregabalin (Lyrica) 100 mg PO TID [facility] Last Admin: 05/14/17 08:29 Dose: 100 mg Saccharomyces Boulardii (Florastor) 250 mg PO BID [facility] Last Admin: 05/14/17 08:22 Dose: 250 mg - Labs Labs: 05/14/17 05:00 05/14/17 05:00 - Constitutional Appears: No Acute Distress - ENT Exam ENT Exam: Mucous Membranes Moist - Respiratory Exam Respiratory Exam: Clear to Ausculation Bilateral, NORMAL BREATHING PATTERN - Cardiovascular Exam Cardiovascular Exam: REGULAR RHYTHM, +S1, +S2 - GI/Abdominal Exam GI & Abdominal Exam: Soft, Normal Bowel Sounds. absent: Distended, Guarding, Rigid, Tenderness - Extremities Exam Extremities Exam: Normal Inspection. 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 Plan: Acute diarrheas unclear etiology -resolving -asymptomatic since admission, no more episodes of diarrheas for more than 24 hours -Tolerating diet -C diff toxin neg -GI consulted, Dr. Warren, recommended f/u of electrolytes, no other interventions at this time Hyperkalemia -K+ today 6.0 -EKG stat. f/u results -Regular insulin 10 units SC once -D 50 % 1 amp ( 25 gm) IV once after insulin given -accucheck 15 mins and 30 mins after insulin administration -re-check potassium level at 2 pm today DM type 2 -dc Metformin 1000 mg today PM dose. Even though hypoglycemia is not a known adverse effect of Metformin, unclear why patient had one episode of hypoglycemia overnight. -start Metformin 500 mg PO BID tomorrow -Held Prandin and Glipizide PO for now, because patient came with hypoglycemia and had 1 hypoglycemic episode -c/w accucheck ACHS HTN - c/w home medication Anemia unclear etiology, no evidence of active bleeding at this time -chronic since 2016 H/H stable consider hemo or work up as outpatient Hypothyroidism - c/w Levothyroxine 100mc - TSH/T4 WNL on this admission DVT prophylaxis no evidence of active bleeding stable H/H - lovenox 40 mg SC daily
[2017-05-14] MEDS ORDERED: Iohexol 300 100 ML IJ ONE (14:14)
[2017-05-14] MEDS ORDERED: Sodium Chloride 0.9% 50 ML IV ONE (14:14)
--- NOTE | 2017-05-14 15:56 | CT ---
PROCEDURE: CT Chest with contrast HISTORY: h/o carcinoid syndrome COMPARISON: 04/18/2017 CT thorax TECHNIQUE: Contiguous axial images were obtained through the chest with intravenous contrast enhancement. Sagittal and coronal reconstructions were performed. IV contrast: 80 cc Omnipaque 300 Radiation dose (DLP): 260.60 mGy-cm. This CT exam was performed using one or more of the following dose reduction techniques: Automated exposure control, adjustment of the mA and/or kV according to patient size, and/or use of iterative reconstruction technique. FINDINGS: LUNGS: 8 spiculated mass, scar right apex unchanged compared to prior studies. Interstitial lung disease apparent on the prior study is improved. Underlying hyperinflation, manifestations of COPD persists. . MEDIASTINUM: Unremarkable thoracic aorta. No aneurysm or dissection. Normal sized heart. Main pulmonary artery unremarkable. No vascular congestion. No lymphadenopathy. PLEURA: Focal pleural thickening apparent on the prior study antral laterally on the left unchanged. BONES: No fracture. No destructive lesion. UPPER ABDOMEN: No significant interval change compared to the prior examination(s). In particular a calcified rim of the spleen. OTHER FINDINGS: None. IMPRESSION: Interval improvement in interstitial lung disease apparent on the prior study. Stable focal area of scarring, spiculated region right apex.
[2017-05-14] MEDS ORDERED: Albuterol 0.083% Inhal Sol (2.5 mg/3 mL) UD INH SCH (17:15)
[2017-05-14] MEDS ORDERED: Albuterol 0.083% Inhal Sol (2.5 mg/3 mL) UD INH ONE (17:43)
[2017-05-14] MEDS: Dextrose 5%/0.45% NS 1,000 ML IV SCH (17:48)
[2017-05-14] MEDS ORDERED: Albuterol-Ipratrop 3 mg / 0.5 (3 ml) UD INH SCH (20:00)
[2017-05-15] MEDS ORDERED: Albuterol-Ipratrop 3 mg / 0.5 (3 ml) UD INH SCH (03:45)
[2017-05-15] MEDS: Albuterol-Ipratrop 3 mg / 0.5 (3 ml) UD INH SCH ×3 (03:47→11:12)
[2017-05-15] MEDS: Levothyroxine 100 MCG TAB PO SCH (06:06)
[2017-05-15] MEDS: Dextrose 5%/0.45% NS 1,000 ML IV SCH (06:56)
--- NOTE | 2017-05-15 09:22 | CP.PCM.PN ---
Objective - Vital Signs/Intake and Output Vital Signs (last 24 hours): Temp Pulse Resp BP Pulse Ox 97.8 F 102 H 20 114/48 L 96 05/15/17 07:58 05/15/17 07:58 05/15/17 07:58 05/15/17 07:58 05/15/17 07:58 - Medications Medications: Current Medications Acetaminophen (Tylenol 325mg Tab) 650 mg PO Q6 PRN PRN Reason: Pain, Mild (1-3) Albuterol/Ipratropium (Duoneb 3 Mg/0.5 Mg (3 Ml) Ud) 3 ml INH RQ4 [facility] Last Admin: 05/15/17 07:13 Dose: 3 ml Aspirin (Aspirin Chewable) 81 mg PO DAILY [facility] Last Admin: 05/14/17 08:21 Dose: 81 mg Bismuth Subsalicylate (Pepto Bismol) 262 mg PO Q1 PRN PRN Reason: Diarrhea Dextrose (Dextrose 50% Inj) 0 ml IV STAT PRN; Protocol PRN Reason: Hyglycemia Protocol Dextrose (Glutose 15) 0 gm PO ONCE PRN; Protocol PRN Reason: Hypoglycemia Protocol Enoxaparin Sodium (Lovenox) 40 mg SC DAILY [facility] PRN Reason: Protocol Last Admin: 05/14/17 08:24 Dose: 40 mg Glucagon (Glucagen Diagnostic Kit) 0 mg IM STAT PRN; Protocol PRN Reason: Hypoglycemia Protocol Dextrose/Sodium Chloride (Dextrose 5%/0.45% Ns 1000 Ml) 1,000 mls @ 80 mls/hr IV .[id number] [facility] Stop: 05/15/17 17:04 Last Admin: 05/15/17 06:56 Dose: Not Given Insulin Human Lispro (Humalog) 0 units SC ACHS [facility] PRN Reason: Protocol Last Admin: 05/14/17 21:51 Dose: Not Given Ketorolac Tromethamine (Toradol) 15 mg IVP Q6 PRN PRN Reason: Pain, moderate (4-7) Last Admin: 05/15/17 06:17 Dose: 15 mg Levothyroxine Sodium (Synthroid) 100 mcg PO DAILY@0630 [facility] Last Admin: 05/15/17 06:06 Dose: 100 mcg Metformin HCl (Glucophage) 500 mg PO BID [facility] Metoprolol Tartrate (Lopressor) 12.5 mg PO Q12 [facility] Last Admin: 05/14/17 21:54 Dose: 12.5 mg Morphine Sulfate (Morphine) 1 mg IVP Q6 PRN PRN Reason: Pain, severe (8-10) Ondansetron HCl (Zofran Inj) 4 mg IVP Q6 PRN PRN Reason: Nausea/Vomiting Pregabalin (Lyrica) 100 mg PO TID [facility] Last Admin: 05/14/17 16:32 Dose: 100 mg Saccharomyces Boulardii (Florastor) 250 mg PO BID [facility] Last Admin: 05/14/17 16:31 Dose: 250 mg - Labs Labs: 05/14/17 05:00 05/14/17 20:05
[2017-05-15] MEDS: Insulin Lispro (humaLOG) 100 Units/ml Inj SC SCH ×3 (09:50→16:39)
[2017-05-15] MEDS: Saccharomyces Boulardi 250 mg Cap PO SCH ×2 (09:50→16:51)
[2017-05-15] MEDS: Enoxaparin 40 mg Syringe SC SCH (09:52)
--- NOTE | 2017-05-15 13:39 | CP.PCM.DIS ---
Provider - Provider Date of Admission: 05/13/17 17:05 Attending physician: Rene Rodriguez MD Primary care physician: Rene Rodriguez MD Consults: GI- Dr Warren Time Spent in preparation of Discharge (in minutes): 25 Diagnosis - Discharge Diagnosis (1) Diarrhea Status: Acute (2) Hyperkalemia Status: Acute Hospital Course - Lab Results Lab Results: Most Recent Lab Values WBC 8.9 K/uL (4.8-10.8) 05/14/17 05:00 RBC 3.52 Mil/uL (4.40-5.90) L 05/14/17 05:00 Hgb 8.7 g/dL (12.0-18.0) L 05/14/17 05:00 Hct 27.8 % (35.0-51.0) L 05/14/17 05:00 MCV 79.1 fl (80.0-94.0) L 05/14/17 05:00 MCH 24.8 pg (27.0-31.0) L 05/14/17 05:00 MCHC 31.3 g/dL (33.0-37.0) L 05/14/17 05:00 RDW 16.0 % (11.5-14.5) H 05/14/17 05:00 Plt Count 342 K/uL (130-400) 05/14/17 05:00 MPV 7.1 fl (7.2-11.7) L 05/13/17 01:25 Neut % (Auto) 53.0 % (50.0-75.0) 05/13/17 01:25 Lymph % (Auto) 24.3 % (20.0-40.0) 05/13/17 01:25 [place] % (Auto) 11.2 % (0.0-10.0) H 05/13/17 01:25 Eos % (Auto) 11.0 % (0.0-4.0) H 05/13/17 01:25 Baso % (Auto) 0.5 % (0.0-2.0) 05/13/17 01:25 Neut # 4.7 K/uL (1.8-7.0) 05/13/17 01:25 Lymph # 2.1 K/uL (1.0-4.3) 05/13/17 01:25 [place] # 1.0 K/uL (0.0-0.8) H 05/13/17 01:25 Eos # 1.0 K/uL (0.0-0.7) H 05/13/17 01:25 Baso # 0.0 K/uL (0.0-0.2) 05/13/17 01:25 Sodium 134 mmol/l (132-148) 05/14/17 05:00 Potassium 4.9 MMOL/L (3.6-5.0) 05/14/17 20:05 Chloride 104 mmol/L (98-107) 05/14/17 05:00 Carbon Dioxide 26 mmol/L (22-30) 05/14/17 05:00 Anion Gap 10 (10-20) 05/14/17 05:00 BUN 10 mg/dl (9-20) 05/14/17 05:00 Creatinine 0.8 mg/dL (0.8-1.5) 05/14/17 05:00 Est GFR ( Amer) > 60 05/14/17 05:00 Est GFR (Non-Af Amer) > 60 05/14/17 05:00 POC Glucose (mg/dL) 350 mg/dL (65-110) H 05/15/17 10:45 Random Glucose 95 mg/dL (75-110) 05/14/17 05:00 Lactic Acid 0.8 MMOL/L (0.7-2.1) 05/13/17 01:25 Calcium 8.3 mg/dL (8.4-10.2) L 05/14/17 05:00 Total Bilirubin 0.3 mg/dl (0.2-1.3) 05/13/17 06:30 AST 21 U/L (17-59) 05/13/17 06:30 ALT 22 U/L (21-72) 05/13/17 06:30 Alkaline Phosphatase 82 U/L (38-126) 05/13/17 06:30 Total Protein 6.2 G/DL (6.3-8.2) L 05/13/17 06:30 Albumin 3.1 g/dL (3.5-5.0) L 05/13/17 06:30 Globulin 3.0 gm/dL (2.2-3.9) 05/13/17 06:30 Albumin/Globulin Ratio 1.0 (1.0-2.1) 05/13/17 06:30 Lipase 16 U/L (23-300) L 05/13/17 07:05 Vitamin B12 236 pg/mL (239-931) L 05/15/17 05:30 Thyroxine (T4) 7.37 ug/dl (5.5-11.0) 05/13/17 02:47 TSH 3rd Generation 2.00 mIU/ML (0.46-4.68) 05/13/17 02:47 Urine Color Straw (YELLOW) 05/13/17 15:15 Urine Clarity Clear (Clear) 05/13/17 15:15 Urine pH 5.0 (5.0-8.0) 05/13/17 15:15 Ur Specific [place] < 1.005 (1.003-1.030) 05/13/17 15:15 Urine Protein Negative mg/dL (NEGATIVE) 05/13/17 15:15 Urine Glucose (UA) 50 mg/dL (Normal) 05/13/17 15:15 Urine Ketones Negative mg/dL (NEGATIVE) 05/13/17 15:15 Urine Blood Small (NEGATIVE) 05/13/17 15:15 Urine Nitrate Negative (NEGATIVE) 05/13/17 15:15 Urine Bilirubin Negative (NEGATIVE) 05/13/17 15:15 Urine Urobilinogen 0.2-1.0 mg/dL (0.2-1.0) 05/13/17 15:15 Ur Leukocyte Esterase Neg [place]/uL (Negative) 05/13/17 15:15 Urine Microscopic WBC 11 /hpf (0-5) H 05/13/17 15:15 Ur Squamous Epith Cells < 1 /hpf (0-5) 05/13/17 15:15 Urine Opiates Screen Positive (NEGATIVE) H 05/13/17 06:58 Urine Methadone Screen Negative (NEGATIVE) 05/13/17 06:58 Ur Barbiturates Screen Negative (NEGATIVE) 05/13/17 06:58 Ur Phencyclidine Scrn Negative (NEGATIVE) 05/13/17 06:58 Ur Amphetamines Screen Negative (NEGATIVE) 05/13/17 06:58 U Benzodiazepines Scrn Negative (NEGATIVE) 05/13/17 06:58 U Oth Cocaine Metabols Negative (NEGATIVE) 05/13/17 06:58 U Cannabinoids Screen Negative (NEGATIVE) 05/13/17 06:58 Alcohol, Quantitative < 10 mg/dl (0-10) 05/13/17 07:00 C. difficile Ag & Toxin Negative (NEGATIVE) 05/13/17 17:25 HIV-1 Ab Rapid Screen Non reactive (NON REAC) 05/13/17 08:05 - Hospital Course Hospital Course: 81 yo M w PMHx of Carcinoid tumor s/p Radiation, HTN, HLD, Hypothyroidism, Type II NIDDM was admitted for one day h/o diffuse diarrhea. Potassium, though chronic, was as high as 6.0 yesterday, was lowered to 4.9 following insulin with D5 and Albuterol. C diff negative. Diarrhea resolved. GI onboard and agreed with plan. Discharge Exam - Head Exam Head Exam: ATRAUMATIC, NORMOCEPHALIC - Eye Exam Eye Exam: Normal appearance - ENT Exam ENT Exam: Mucous Membranes Moist - Respiratory Exam Respiratory Exam: Clear to PA & Lateral, NORMAL BREATHING PATTERN - Cardiovascular Exam Cardiovascular Exam: REGULAR RHYTHM, +S1, +S2 - GI/Abdominal Exam GI & Abdominal Exam: Normal Bowel Sounds, Soft. absent: Distended, Firm, Guarding, Tenderness - Extremities Exam Extremities exam: normal inspection - Neurological Exam Neurological exam: Alert, Oriented x3 - Skin Skin Exam: Dry, Intact, Normal Color, Warm Discharge Plan - Follow Up Plan Condition: STABLE Disposition: HOME/ ROUTINE Additional Instructions: f/u with PMD Dr Rodriguez within1 week of discharge resume home medications Return to ED if severe abdominal pain or repeat of severe diarrhea occurs Referrals: Rene Rodriguez MD [Primary Care Provider] -
--- NOTE | 2017-05-15 16:34 | CP.PCM.PCO ---
Physician Communication Note - Physician Communication Note Physician Communication Note: hypoglycemia with POC <20 mg/dl at 15:47, improved s/p D5 ampule Additional Comments - Additional Comments Additional Comments: pt had POC glucose of 350mg/dL at 10:45, 5 units regular insulin were administered at 12:40 per coverage scale protocol, pt had symptomatic hypoglycemic episode at 15:47 with POC glucose < 20 mg/dL. Patient VSS at 16:20 (BP 157/54 mmHg, P 72, R20, O2 sat 97% on room air, T 98.2F), pt reports he does not feel well to go home. P: will keep for observation (accuchecks as scheduled) , d/c insulin coverage scale as patient is tolerating PO diet and his home diabetes medications have been resumed
[2017-05-15] MEDS ORDERED: guaiFENesin DM 100 mg-10 mg/5 ml UD PO ONE (16:35)
[2017-05-16 01:00] VITALS: TEMP 98.4
[2017-05-16] MEDS: Levothyroxine 100 MCG TAB PO SCH (06:14)
[2017-05-16 07:58] VITALS: BP 143/78; PULSE 80; RESP 20; O2SAT 97
[2017-05-16] MEDS: Saccharomyces Boulardi 250 mg Cap PO SCH (08:59)
[2017-05-16] MEDS: Enoxaparin 40 mg Syringe SC SCH (09:00)
--- NOTE | 2017-05-16 11:23 | CARD ---
APPROVED REPORT EKG Measurement Heart [id number] <Conclusion> Normal sinus rhythm Nonspecific T wave abnormality Abnormal ECG
--- NOTE | 2017-05-16 11:53 | CP.PCM.PN ---
Subjective - Date & Time of Evaluation Date of Evaluation: 05/16/17 Time of Evaluation: 09:30 - Subjective Subjective: doing well Objective - Vital Signs/Intake and Output Vital Signs (last 24 hours): Temp Pulse Resp BP Pulse Ox 98.4 F 80 20 143/78 97 05/16/17 09:00 05/16/17 09:00 05/16/17 09:00 05/16/17 09:00 05/16/17 09:00 - Medications Medications: Current Medications Acetaminophen (Tylenol 325mg Tab) 650 mg PO Q6 PRN PRN Reason: Pain, Mild (1-3) Last Admin: 05/16/17 01:13 Dose: 650 mg Aspirin (Aspirin Chewable) 81 mg PO DAILY [facility] Last Admin: 05/16/17 08:58 Dose: 81 mg Bismuth Subsalicylate (Pepto Bismol) 262 mg PO Q1 PRN PRN Reason: Diarrhea Dextrose (Dextrose 50% Inj) 0 ml IV STAT PRN; Protocol PRN Reason: Hyglycemia Protocol Last Admin: 05/15/17 15:49 Dose: 50 ml Dextrose (Glutose 15) 0 gm PO ONCE PRN; Protocol PRN Reason: Hypoglycemia Protocol Enoxaparin Sodium (Lovenox) 40 mg SC DAILY [facility] PRN Reason: Protocol Last Admin: 05/16/17 09:00 Dose: 40 mg Glucagon (Glucagen Diagnostic Kit) 0 mg IM STAT PRN; Protocol PRN Reason: Hypoglycemia Protocol Insulin Human Lispro (Humalog) 0 units SC ACHS [facility] PRN Reason: Protocol Last Admin: 05/15/17 16:39 Dose: Not Given Ketorolac Tromethamine (Toradol) 15 mg IVP Q6 PRN PRN Reason: Pain, moderate (4-7) Last Admin: 05/16/17 06:18 Dose: 15 mg Levothyroxine Sodium (Synthroid) 100 mcg PO DAILY@0630 [facility] Last Admin: 05/16/17 06:14 Dose: 100 mcg Metformin HCl (Glucophage) 500 mg PO BID [facility] Last Admin: 05/16/17 08:56 Dose: Not Given Metoprolol Tartrate (Lopressor) 12.5 mg PO Q12 [facility] Last Admin: 05/16/17 08:59 Dose: 12.5 mg Ondansetron HCl (Zofran Inj) 4 mg IVP Q6 PRN PRN Reason: Nausea/Vomiting Pregabalin (Lyrica) 100 mg PO TID [facility] Last Admin: 05/16/17 09:02 Dose: 100 mg Saccharomyces Boulardii (Florastor) 250 mg PO BID [facility] Last Admin: 05/16/17 08:59 Dose: 250 mg - Labs Labs: 05/14/17 05:00 05/14/17 20:05 - Neck Exam Neck Exam: Normal Inspection - Respiratory Exam Respiratory Exam: NORMAL BREATHING PATTERN - Cardiovascular Exam Cardiovascular Exam: REGULAR RHYTHM - GI/Abdominal Exam GI & Abdominal Exam: Soft, Normal Bowel Sounds Assessment and Plan - Assessment and Plan (Free Text) Assessment: 81 yo male with diarrhea diarrhea resolved dc planning outpatient work up
--- NOTE | 2017-05-16 13:28 | CP.PCM.PN ---
<Lenora Bower - Last Filed: 05/16/17 13:25> Subjective - Date & Time of Evaluation Date of Evaluation: 05/16/17 Time of Evaluation: 07:15 - Subjective Subjective: Patient seen and bexamined with attending bthis morning. Patient denies Cp, SOB, N/V, abdominal pain, diarrheas, or other complains at this evaluation Patient express the desire to go home Cleared by GI doctor to be discharged today and f/u as outpatient for possible workup Afebrile, VS stable WNL, tolerating PO Objective - Vital Signs/Intake and Output Vital Signs (last 24 hours): Temp Pulse Resp BP Pulse Ox 98.4 F 80 20 143/78 97 05/16/17 09:00 05/16/17 09:00 05/16/17 09:00 05/16/17 09:00 05/16/17 09:00 - Medications Medications: Current Medications Acetaminophen (Tylenol 325mg Tab) 650 mg PO Q6 PRN PRN Reason: Pain, Mild (1-3) Last Admin: 05/16/17 01:13 Dose: 650 mg Aspirin (Aspirin Chewable) 81 mg PO DAILY [facility] Last Admin: 05/16/17 08:58 Dose: 81 mg Bismuth Subsalicylate (Pepto Bismol) 262 mg PO Q1 PRN PRN Reason: Diarrhea Dextrose (Dextrose 50% Inj) 0 ml IV STAT PRN; Protocol PRN Reason: Hyglycemia Protocol Last Admin: 05/15/17 15:49 Dose: 50 ml Dextrose (Glutose 15) 0 gm PO ONCE PRN; Protocol PRN Reason: Hypoglycemia Protocol Enoxaparin Sodium (Lovenox) 40 mg SC DAILY [facility] PRN Reason: Protocol Last Admin: 05/16/17 09:00 Dose: 40 mg Glucagon (Glucagen Diagnostic Kit) 0 mg IM STAT PRN; Protocol PRN Reason: Hypoglycemia Protocol Insulin Human Lispro (Humalog) 0 units SC ACHS [facility] PRN Reason: Protocol Last Admin: 05/15/17 16:39 Dose: Not Given Ketorolac Tromethamine (Toradol) 15 mg IVP Q6 PRN PRN Reason: Pain, moderate (4-7) Last Admin: 05/16/17 06:18 Dose: 15 mg Levothyroxine Sodium (Synthroid) 100 mcg PO DAILY@0630 [facility] Last Admin: 05/16/17 06:14 Dose: 100 mcg Metformin HCl (Glucophage) 500 mg PO BID [facility] Last Admin: 05/16/17 08:56 Dose: Not Given Metoprolol Tartrate (Lopressor) 12.5 mg PO Q12 [facility] Last Admin: 05/16/17 08:59 Dose: 12.5 mg Ondansetron HCl (Zofran Inj) 4 mg IVP Q6 PRN PRN Reason: Nausea/Vomiting Pregabalin (Lyrica) 100 mg PO TID [facility] Last Admin: 05/16/17 09:02 Dose: 100 mg Saccharomyces Boulardii (Florastor) 250 mg PO BID [facility] Last Admin: 05/16/17 08:59 Dose: 250 mg - Labs Labs: 05/14/17 05:00 05/14/17 20:05 - Constitutional Appears: No Acute Distress - ENT Exam ENT Exam: Mucous Membranes Moist - Respiratory Exam Respiratory Exam: Clear to Ausculation Bilateral, NORMAL BREATHING PATTERN - Cardiovascular Exam Cardiovascular Exam: REGULAR RHYTHM, +S1, +S2 - GI/Abdominal Exam GI & Abdominal Exam: Soft, Normal Bowel Sounds. absent: Distended, Firm, Guarding, Rigid, Tenderness - Extremities Exam Extremities Exam: Normal Inspection. absent: Calf Tenderness, Pedal Edema - Neurological Exam Neurological Exam: Alert, Awake, Oriented x3 Assessment and Plan - Assessment and Plan (Free Text) Plan: Patient stable to be discharged home today with f/u with PMDDr. Rodriguez in 1 week. Re-assumed and continue home medications F/u with GI as outpatient recommended f/u with Oncologist for Carcinoid syndrome management and surveillance ER precautions provided. <Rene Rodriguez - Last Filed: 05/18/17 06:53> Objective - Vital Signs/Intake and Output Vital Signs (last 24 hours): Temp Pulse Resp BP Pulse Ox 98.4 F 80 20 143/78 97 05/16/17 09:00 05/16/17 09:00 05/16/17 09:00 05/16/17 09:00 05/16/17 09:00 - Labs Labs: 05/14/17 05:00 05/14/17 20:05 Attending/Attestation - Attestation I have personally seen and examined this patient.: Yes I have fully participated in the care of the patient.: Yes I have reviewed all pertinent clinical information, including history, physical exam and plan: Yes
--- NOTE | 2017-05-17 03:15 | CON ---
DATE: 05/13/2017 REASON FOR CONSULTATION: History of carcinoid, now diarrhea. 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 No blood in the stool. No weight loss. No heartburn, reflux, lying in bed comfortable in no apparent distress. States that the diarrhea stopped. PAST MEDICAL HISTORY: Carcinoid tumor treated with radiation, hypertension, hyperlipidemia, hypothyroidism, type 2 diabetes. PAST SURGICAL HISTORY: Lumbar spine fusion. FAMILY HISTORY: Noncontributory. SOCIAL HISTORY: Noncontributory. MEDICATIONS: Have been reviewed. ALLERGIES: NONE. REVIEW OF SYSTEMS: All other systems have been reviewed and negative apart from the HPI. PHYSICAL EXAMINATION VITAL SIGNS: In the hospital grossly unremarkable. GENERAL: Pleasant, elderly female, lying in bed, comfortable, in no apparent distress. HEENT: Head is normocephalic and atraumatic. Eyes, pupils are equally round and reactive to light bilaterally. No conjunctival pallor or icterus. NECK Supple. Normal range of motion. No lymphadenopathy appreciated. LUNGS: Coarse breath sounds bilaterally. HEART: S1 and S2. Regular rate and rhythm. No murmurs appreciated. ABDOMEN: Soft and nontender. Bowel sounds present. No rebound. No guarding. EXTREMITIES: Pulses felt bilaterally. SKIN: Warm, dry and intact. NEUROLOGIC: A and O x3. LABORATORY DATA: Labs have been reviewed. WBC is 8.6, hemoglobin of 8.7, hematocrit of 27.2, platelet count is 343. Potassium is 5.4. Lactic acidosis is normal. U-tox is positive for opioids, C. diff is negative. Abdominal x-rays shows no acute findings. ASSESSMENT AND PLAN: This is an 81-year-old man with history of carcinoid now with diarrhea, diarrhea now seems to have resolved. From a GI standpoint, C. diff is negative, follow up in outpatient setting, advance diet as tolerated. Correct electrolytes as needed. Thank you for consult. Gurjit Warren MD/ PhD
== END 2017-05-16 13:47 | disposition home or self-care (01) | DRG 392 ==
LOC: H.ER 00:38 → H.ERHOLD 02:16 → H.MEDSURG1 04:36 → OBSVTOIN 17:05
PROVIDERS: ADMIT Family Medicine; ATTEND Family Medicine
DX: R19.7 Diarrhea, unspecified (principal); E87.1 Hypo-osmolality and hyponatremia; E34.0 Carcinoid syndrome; E11.649 Type 2 diabetes mellitus with hypoglycemia without coma; E87.5 Hyperkalemia; I10 Essential (primary) hypertension; E78.5 Hyperlipidemia, unspecified; E03.9 Hypothyroidism, unspecified; D64.9 Anemia, unspecified; Z98.1 Arthrodesis status; Z79.84 Long term (current) use of oral hypoglycemic drugs